=== PATIENT | female | born 1960 | race Caucasian/White ===

== ENCOUNTER 2018-12-05 09:00 | Day surgery (SDC) | payer BC, SELFPAY ==
--- NOTE | 2018-12-05 09:12 | EKG12_ITS ---
Test Reason : PREOP Blood Pressure : / mmHG Vent. Rate : 052 BPM Atrial Rate : 052 BPM P-R Int : 160 ms QRS Dur : 098 ms QT Int : 432 ms P-R-T Axes : 075 035 053 degrees QTc Int : 401 ms Sinus bradycardia Otherwise normal ECG No previous ECGs available Confirmed by TONG GALVEZ, DON ([id number]), editorial intern GAY KERN ([id number]) on 12/09/2018 11:31:00 AM Referred By: Cyril Galindo Confirmed By:DON FORTUNE MD
[2018-12-05 09:40] LABS: Anion Gap 7 (5-15); BUN 10 mg/dL (7-18); BUN/Creat Ratio 12.1 RATIO (10-20); Calcium,Total 9.1 mg/dL (8.5-10.1); Chloride 106 mmol/L (98-107); Creatinine, Serum 0.82 mg/dL (0.55-1.02); EST Glomerular Filtration Rate 75 mL/min (>60); Est Glom Filt Rate - Afr Amer 91 mL/min (>60); Glucose 87 mg/dL (74-106); Sodium Level 141 mmol/L (136-145)
[2018-12-05 09:42] VITALS: BP 128/84; PULSE 56; RESP 16; TEMP 37.1; O2SAT 98; BMI 23.1
--- NOTE | 2018-12-05 11:19 | PCM.OPRPT ---
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 Attempts at using a hearing aid in the right ear complicated by her previous mastoid surgery and tendency for drainage on that side. The placement of a bone anchored hearing device was offered as a rehabilitation option in the setting and after demonstration with a bone oscillator she was eager to proceed. The risks, alternatives, potential complications, and benefits were discussed at length and any questions answered to the patient and/or caregiver's satisfaction. Witnessed informed consent was obtained in the office, and the patient and/or caregiver was agreeable to proceed. Procedure went as follows: The patient was identified in the preoperative holding after site marking the appropriate ear in accordance with the patient's history, office chart, and physical exam. The patient was then brought to the operating room and placed under general anesthesia and intubated. When appropriate anesthesia was obtained, the scalp was prepped and draped in usual sterile fashion. The abutment site was then marked 5 cm posterior to the external auditory meatus and injected with 1 mL of 1% lidocaine with 100,000 epinephrine. Using a 5 mm punch, the skin and subcutaneous tissues were incised and resected. The periosteum overlying the operative site was then removed sharply with an iris scissor. The pilot supervisor drill hole was then created and palpated to ensure bone at the bottom depth of the hole and then finalized to 4 mm in size to allow for placement of the titanium abutment. The bony fragments were then suctioned and irrigated clear and the 4 x 9 mm abutment was then placed in accordance with the manufacture's directions. Xeroform gauze was then placed at the skin edge followed by the healing cap. The patient was then to returned to anesthesia, was revived and extubated without complication having tolerated the procedure well. Type of Anesthesia:: General Anesthesiologist: Quintin Monk Special Medications: none Specimen's removed: none Drains: none Estimated Blood Loss (mL): 0 mL Fluids Replaced: 100 mL Grafts/Implants Used: 9 mm titanium PONTO abutment - Complications none - Admit VTE Documentation VTE Present on Admission: No VTE Mechan Device Prophylaxis: SCD's VTE Pharm Prophylaxis ordered?: No
--- NOTE | 2018-12-05 11:23 | OP.PCM_ITS ---
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 Attempts at using a hearing aid in the right ear complicated by her previous mastoid surgery and tendency for drainage on that side. The placement of a bone anchored hearing device was offered as a rehabilitation option in the setting a nd after demonstration with a bone oscillator she was eager to proceed. The risks, alternatives, potential complications, and benefits were discussed at length and any questions answered to the patient and/or caregiver's satisfaction. Witnessed informed consent was obtained in the office, and the patient and/or caregiver was agreeable to proceed. Procedure went as follows: The patient was identified in the preoperative holding after site marking the appropriate ear in accordance with the patient's history, office chart, and physical exam. The patient was then brought to the operating room and placed under general anesthesia and intubated. When appropriate anesthesia was obtained, the scalp was prepped and draped in usual sterile fashion. The abutment site was then marked 5 cm posterior to the external auditory meatus and injected with 1 mL of 1% lidocaine with 100,000 epinephrine. Using a 5 mm punch, the skin and subcutaneous tissues were incised and resected. The periosteum overlying the operative site was then removed sharply with an iris scissor. The leather coverer drill hole was then created and palpated to ensure bone at the bottom depth of the hole and then finalized to 4 mm in size to allow for placement of the titanium abutment. The bony fragments were then suctioned and irrigated clear and the 4 x 9 mm abutment was then placed in accordance with the manufacture's directions. Xeroform gauze was then placed at the skin edge followed by the healing cap. The patient was then to returned to anesthesia, was revived and extubated without complication having tolerated the procedure well. Type of Anesthesia:: General Anesthesiologist: Quintin Monk Special Medications: none Specimen's removed: none Drains: none Estimated Blood Loss (mL): 0 mL Fluids Replaced: 100 mL Grafts/Implants Used: 9 mm titanium PONTO abutment - Complications none - Admit VTE Documentation VTE Present on Admission: No VTE Mechan Device Prophylaxis: SCD's VTE Pharm Prophylaxis ordered?: No
--- NOTE | 2018-12-05 11:30 | DCINST_ITS ---
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 (Acute) Other abnormal auditory perceptions, unspecified ear (Acute) You will use the following diet at home:: No restrictions Discharge Activity: Return to Normal Activity Call your doctor if your incision/area has: Continuous Slow Oozing, Increased Pain/ Swelling, Foul Smelling Discharge Call your doctor if you observe: Fever of 101 or Higher, Uncontrolled pain Allergies/Adverse Reactions: Allergies No Known Allergies Allergy (Verified 12/03/18 14:38) Medications to take at Discharge Alendronate Sodium [Fosamax] 70 mg PO QWEEK 12/03/18 Cholecalciferol (Vitamin D3) [Vitamin D3] 5,000 unit PO DAILY 12/03/18 Fluoxetine [Prozac] 20 mg PO DAILY 12/03/18 Metoprolol Succinate 50 mg PO DAILY 12/03/18 Valsartan [Diovan] 80 mg PO DAILY 12/03/18 Primary Care Physician: Alejandra Godwin PA-C [Primary Care Provider] - Test Results: Test results from this visit will be discussed in further detail at your follow- up appointment, if applicable. Please Follow Up With: Cyril Galindo MD When: 1 week
[2018-12-05 11:32] VITALS: BP 128/84; BP 140/74; PULSE 76; RESP 16; TEMP 36.3; O2SAT 98
[2018-12-05 11:38] VITALS: BP 124/71; BP 128/84; PULSE 70; RESP 16; TEMP 36.6; O2SAT 96
[2018-12-05 12:26] VITALS: BP 128/84
== END 2018-12-05 12:26 | disposition home or self-care (01) ==
LOC: SDC 09:03 → AC 09:04
PROVIDERS: Family Provider Family Medicine; PCP Family Medicine; Referring Provider Otolaryngology; Visit Provider Otolaryngology
PROC: (CPT 69710; principal; 2018-12-05 10:15)
DX: H90.71 Mixed conductive and sensorineural hearing loss, unilateral, right ear, with unrestricted hearing on the contralateral side (principal); H74.8X1 Other specified disorders of right middle ear and mastoid; H93.299 Other abnormal auditory perceptions, unspecified ear; I10 Essential (primary) hypertension; K21.9 Gastro-esophageal reflux disease without esophagitis; F32.9 Major depressive disorder, single episode, unspecified; F41.9 Anxiety disorder, unspecified; Z79.899 Other long term (current) drug therapy; Z78.0 Asymptomatic menopausal state; Z87.891 Personal history of nicotine dependence
CPT/HCPCS: 69714; 80048; 93005; J7120; J2405

== ENCOUNTER → 2020-02-03 | Outpatient (CLI) | payer BC, SELFPAY ==
--- NOTE | 2020-02-03 | IMM_PTH ---
PATIENT: DAV TOWNSEND LOC: [facility] U#:[id number] AGE/SX: 59/F ROOM: RE02/03/[address]: Dr. Gabriel Jansen MD : 1960 BED: DIS: 02/03/2020 SPEC #: [id number] RECD: 02/04/20 13:29 STATUS: ARSH REQ #: [id number] MELANY: 02/03/20 00:[address]: Gabriel Jansen DEPT: IMMUNOHISTOCHEMISTRY RECD BY: Laura Dumont ENTERED: 02/04/20 13:31 SP TYPE: IMMUNO OTHR DR: Alejandra Godwin PA-C Tissues: Right breast, NOS Procedures: CALPONIN-1 (add) CK5-6 (add) CK8 (add) E-CAD (add) HER2 NAUN (add) KI-67 (add) P53 (add) MT (add) IN SITU HYBRIDIZATION P40 (add) ER (initial) PHYSICIAN & [address] [address] SPECIMEN INFORMATION: Tissue Source: Right breast tissue Clinical Info: Abnormal right breast ultrasound Specimen Number: [id number] CPT code: 69864, 51626 x6, 71492 x3 METHODOLOGY: Deparaffinized sections of prefer/formalin-fixed tissue or PAP/DQ stained slides are incubated with monoclonal/polyclonal antibodies/oligonucleotide probes. Localization is made via biotin free immunoperoxidase method. Appropriate controls are performed and reacted as expected. Results on target cell population are indicated in the following table: RESULTS: ANTIBODY / CLONE RESULT E-Cad (ECH-6) positive CK8 (42mtxbN40) positive Calponin-1 (MO353W) negative CK5-6 (D5 & 1684) positive P40 (BC28) negative P53 (DO-7) positive, <10% Ki-67 (30-9) positive, low MORPHOMETRIC ANALYSIS ER (clone 6F11) >95%, strong intensity MT (clone 16/1E2) 75%, moderate intensity Her-2Neu (clone CB11) 2+ The prognostic test for HER2 is performed on formalin-fixed paraffin embedded tissue. A 3+ (positive) staining pattern is defined as intense, homogeneous, complete, circumferential membranous staining in >10% of contiguous tumor cells. A similar weak (2+) staining pattern is interpreted as equivocal. ERIN follow-up testing is recommended for all equivocal cases. Positivity/negativity for ER/MT is reported if > or < 1% of the tumor cells are immuno- reactive, respectively. The ASCO/CAP criteria is used for scoring. Reference: Journal of Clinical Oncology, 2013; 31:9483-4779 & 2010; 16:6170-0751. Duration of fixation: 10.5 Hrs; Sample Adequate: Yes. These assays have not been validated on decalcified tissues. Results should be interpreted with caution given the likelihood of false negativity on decalcified specimens. These tests were developed and their performance characteristics determined by [facility]. They may not have been cleared or approved by the U.S. Food and Drug Administration. The FDA has determined that such clearance or approval is not necessary. The above immunohistochemical/dualISH markers are ordered and reviewed by the Pathologist. INTERPRETATION: Right breast tissue, ultrasound-guided needle core biopsy: Invasive ductal carcinoma, nuclear grade 1-2. Positive for estrogen receptors (favorable prognostic indicator). Positive for progesterone receptors (favorable prognostic indicator). Equivocal for overexpression of [id number]. SJ:dez 02/05/20 Case has been reviewed in consultation with Dr. Jorgensen who concurs with the above diagnosis. IDC:AM ADDENDUM ADDENDUM ADDENDUM ADDENDUM ADDENDUM ADDENDUM ADDENDUM ADDENDUM ADDENDUM ADDENDUM ADDENDUM ADDENDUM ADDENDUM ADDENDUM ADDENDUM ADDENDUM ADDENDUM ADDENDUM ADDENDUM ADDENDUM ADDENDUM ADDENDUM 02/08/2020 12:00 ADDENDUM 02/08/2020 12:00 ADDENDUM 02/08/2020 12:00 ADDENDUM 02/08/2020 12:00 ADDENDUM 02/08/2020 12:00 IN SITU HYBRIDIZATION (ERIN) FOR HER2 Interpretation: Not Amplified / Negative HER2 : CEP-17 Ratio: 0.9 Average HER2 Signal: 2.1 Average CEP-17 Signal: 2.35 Number of Tumor Cells Scanned: 50 Interpretative Information: The INFORM HER2 Dual ERIN DNA Probe Cocktail assay is performed on formalin-fixed paraffin embedded tissue and determines HER2 gene status by detecting HER2 copies via silver in situ hybridization (SISH) and Chromosome 17 copies via chromogenic red in situ hybridization on tumor cells. A minimum of 20 cells representing > 10% of contiguous and homogeneous invasive tumor cells were analyzed. HER2 gene status is classified as Non-amplified (HER2/Chr17 ratio < 2.0) or Amplified (HER2/Chr17 ratio greater than or equal to 2.0). If the resulting HER2/Chr17 ratio falls within 1.8 - 2.2 (Borderline), retesting by FISH is recommended. Reference: Chris AC, Ranjeet GARCIAH, [place] DG, et al: Recommendations for Human Epidermal Growth Factor Receptor 2 Testing in Breast Cancer: [place] Society of Clinical Oncology / [employer] [place] [employer] Clinical Practice Guideline Update. J Clin Oncol 31:8572-3496, 2013. SJ:dez 02/08/20
--- NOTE | 2020-02-03 09:00 | BRBX_PTH ---
PATIENT: DAV TOWNSEND LOC: [facility] U#:[id number] AGE/SX: 59/F ROOM: RE02/03/[address]: Dr. Gabriel Jansen MD : 1960 BED: DIS: 02/03/2020 SPEC #: [id number] RECD: 02/03/20 10:49 STATUS: ARSH REAna #: [id number] MELANY: 02/03/20 09:[address]: Gabriel Jansen DEPT: SURGICAL PATHOLOGY RECD BY: Mikki Ruelas ENTERED: 02/03/20 11:48 SP TYPE: BREAST BX OTHR DR: Alejandra Godwin PA-C Tissues: Right breast, NOS Procedures: Surgery Specimen Level IV HEADER OPERATION: Ultrasound-guided needle core biopsy, right breast PRE-OP DIAGNOSIS: Abnormal ultrasound of right breast TISSUE SUBMITTED: Right breast tissue ISCHEMIC TIME: <1 minute FIXATION TIME: 10.5 hours MICROSCOPIC DIAGNOSIS Right breast, ultrasound-guided needle core biopsy: Invasive ductal carcinoma, nuclear grade 1-2 (0.9 cm in greatest length). See comment. HOSEA:dez 02/04/20 COMMENT Immunohistochemistry ([id number]) supports the above diagnosis. ER/IN/Jbr2nxq studies are being performed on sections of tumor and the results from this study will be reported separately ([id number]). Case has been reviewed in consultation with Dr. Jorgensen who concurs with the above diagnosis. IDC:AM MICROSCOPIC DESCRIPTION Slides are reviewed. GROSS DESCRIPTION Received in fixative is one container labeled with the patient's name and designated right breast biopsy. The specimen consists of multiple elongated fragments of nash-yellow fibroadipose tissue that in aggregate measure 2 x 0.5 x 0.1 cm. The entire specimen is submitted in one cassette. / HOSEA:dez 02/03/20 TC:0 CPT: 65399
[2020-02-03 09:48] VITALS: BMI 23.1
== END | disposition home or self-care (01) ==
LOC: LABSPEC 10:57
PROVIDERS: PCP Family Medicine; Referring Provider Surgery; Visit Provider Surgery
DX: R92.8 Other abnormal and inconclusive findings on diagnostic imaging of breast (principal); C50.911 Malignant neoplasm of unspecified site of right female breast
CPT/HCPCS: 88305; 88341; 88342; 88368

== ENCOUNTER 2020-02-18 08:36 | Day surgery (SDC) | payer BC, SELFPAY ==
[2020-02-03 09:48] VITALS: BMI 23.1
[2020-02-15 09:00] VITALS: BMI 23.1
--- NOTE | 2020-02-15 10:39 | HP_ITS ---
Intake Vital Signs 02/15/20 Height 5 ft 4 in 02/15/20 Weight: 145 lb 02/15/20 BMI 24.9 02/15/20 BP 129/77 H 02/15/20 Blood Pressure Location Rt brachial 02/15/20 Position Sitting 02/15/20 Respiration 18 02/15/20 Pulse 54 L 02/15/20 Pulse Source Monitor 02/15/20 Temp 98.1 F 02/15/20 Temp Source Temporal 02/15/20 Pulse Oximetry (%) 98 02/15/20 Oxygen Delivery Method room air Intake Visit Reasons: Discuss Breast Sx Form Maker Plaster Required: No Accompanied by: Daughter Is patient in pain?: No Allergies No Known Allergies Allergy (Verified 02/15/20 09:00) Medications Alendronate Sodium [Fosamax] 70 mg PO QWEEK 12/03/18 [History Confirmed 02/15/20] Cholecalciferol (Vitamin D3) [Vitamin D3] 5,000 unit PO DAILY 12/03/18 [History Confirmed 02/15/20] Fluoxetine [Prozac] 20 mg PO DAILY 12/03/18 [History Confirmed 02/15/20] Metoprolol Succinate 50 mg PO DAILY 12/03/18 [History Confirmed 02/15/20] Valsartan [Diovan] 80 mg PO DAILY 12/03/18 [History Confirmed 02/15/20] Acetaminophen [Tylenol Tablet] 650 mg PO Q4H PRN PRN tab 12/05/18 [Rx Confirmed 02/15/20] Ibuprofen [Motrin] 200 mg PO Q6H PRN PRN tab 12/05/18 [Rx Confirmed 02/15/20] ascorbic acid (vitamin C) 1,500 mg tablet,extended release 1,200 mg PO DAILY tab 02/03/20 [History Confirmed 02/15/20] omeprazole 20 mg capsule,delayed release 20 mg PO DAILY 02/03/20 [History Confirmed 02/15/20] [facility] Medical History Acid reflux (Acute) Anxiety (Acute) Hypertension (Chronic) Abnormal ultrasound of breast (Acute) Abnormal mammogram of right breast (Acute) 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 Gabriel Jansen MD) Smoking Status: Former smoker second hand exposure: No alcohol intake: never substance use type: does not use caffeine: Yes Type: coffee what type of physical activity do you participate in: walking frequency: daily HPI HPI HPI: DAV TOWNSEND is a 59 F who presents to the office today for HPI HPI Surgical H&P: Yes HPI: DAV TOWNSEND is a 59 F who presents to the office today for preoperative visit for breast cancer. The patient had a biopsy of a right breast mass which came back as invasive ductal carcinoma. ROS General General: No weight change, appetite, fatigue, colon cancer, breast cancer or weakness HEENT HEENT: No difficulty swallowing, eye injury, eye surgery, swollen glands or hoarseness Endo Endocrine: No thyroid disease, diabetes mellitus, thyroid cancer, Hair loss, heat intolerance or cold intolerance Skin Skin: Yes changing moles; no rash Breast Breast: Yes abnormal mammogram and abnormal US; no left breast lump, right breast lump, nipple discharge, breast pain or breast enlargement Musc Musculoskeletal: No back problems, arthritis, rheumatoid arthritis, gout or joint pain Cardio Cardiovascular: Yes high blood pressure; no murmur, pacemaker, heart disease, atrial fibrillation, heart attack, heart stent, palpitations, shortness of breat with exertion or chest pain Psych Psychiatric: Yes anxiety; no depression or hearing voices Resp Respiratory: No shortness of breath, No sleep apnea, No cough, No COPD, No asthma, No emphysema, No wheezing Gastro Gastrointestinal: No abdominal pain, No nausea or vomiting, No diarrhea, No constipation, No blood in stool, Yes acid reflux, No hemorrhoids, No ulcers, No gallbladder problem, No black,tarry stools Bob Hematologic: No blood thinners, No blood disorders, No bleeding, No anemia, No blood clots Neuro Neurologic: No weakness Exam Const General: cooperative Orientation: alert, oriented x3 Chest Breast Palpation: No nipple discharge Resp Effort & Inspection: normal respiratory effort Auscultation: clear to auscultation bilaterally Cardio Rate: regular rate Rhythm: regular rhythm Heart Sounds: no murmurs GI Inspection: non-distended Palpation: soft, nontender Assessment & Plan Problems 1. Malignant neoplasm of upper-outer quadrant of right breast in female, estrogen receptor positive C50.411; Z17.0 Plan The patient has a small breast cancer in the right breast in the lateral aspect. The biopsy came back as invasive ductal carcinoma. I discussed this with the patient in detail. I discussed partial mastectomy with sentinel lymph node biopsy with her. I also discussed wire localization as well as radiotracer dye and blue dye injection. I discussed the partial mastectomy in great detail with her and all questions were answered. I discussed the risks including but not limited to bleeding, infection, positive margins, positive lymph nodes, nerve injury, lymphedema. The patient understands all the risks and is she is willing to proceed. Patient had her COVID testing and she is scheduled for surgery . We discussed the current risks associated with COVID-19. While it is understood that there is a community spread of COVID-19, the risk of alan COVID-19 while at [facility] ([facility]) is very low; however, the risk cannot be completely mitigated because of the community spread of the disease. We discussed in detail the risk of exposure to and/or potential harm posed by the COVID-19 virus with having a surgery/procedure at this time versus the risk of delaying the surgery/procedure. It is not possible to know either the risk of delaying the surgery or procedure or chance of getting an infection with perfect accuracy, but a joint decision was made to proceed at this time with the scheduled surgery/procedure as indicated on the consent form. Patient was notified that we will need to comply with any screening or testing [facility] wishes to perform or that surgery may be delayed for any positive results. Gabriel Jansen MD Pager: [facility] [address] [place] [address], [address] [place] [address] Office: Coding Level of Care Code Off vis,est,level 3 Diagnoses Malignant neoplasm of upper-outer quadrant of right breast in female, estrogen receptor positive C50.411; Z17.0 ??Breast location: upper outer quadrant of breast ??Estrogen receptor status: positive ??Patient sex: female 02/15/20 1043 <Electronically signed by Gabriel hamm MD> Date _ Gabriel Jansen MD I have re-examined the patient. There are no clinical changes since date of exam.
--- NOTE | 2020-02-15 10:39 | HP_ITS ---
Intake Vital Signs 02/15/20 Height 5 ft 4 in 02/15/20 Weight: 145 lb 02/15/20 BMI 24.9 02/15/20 BP 129/77 H 02/15/20 Blood Pressure Location Rt brachial 02/15/20 Position Sitting 02/15/20 Respiration 18 02/15/20 Pulse 54 L 02/15/20 Pulse Source Monitor 02/15/20 Temp 98.1 F 02/15/20 Temp Source Temporal 02/15/20 Pulse Oximetry (%) 98 02/15/20 Oxygen Delivery Method room air Intake Visit Reasons: Discuss Breast Sx Traffic Manager Required: No Accompanied by: Daughter Is patient in pain?: No Allergies No Known Allergies Allergy (Verified 02/15/20 09:00) Medications Alendronate Sodium [Fosamax] 70 mg PO QWEEK 12/03/18 [History Confirmed 02/15/20] Cholecalciferol (Vitamin D3) [Vitamin D3] 5,000 unit PO DAILY 12/03/18 [History Confirmed 02/15/20] Fluoxetine [Prozac] 20 mg PO DAILY 12/03/18 [History Confirmed 02/15/20] Metoprolol Succinate 50 mg PO DAILY 12/03/18 [History Confirmed 02/15/20] Valsartan [Diovan] 80 mg PO DAILY 12/03/18 [History Confirmed 02/15/20] Acetaminophen [Tylenol Tablet] 650 mg PO Q4H PRN PRN tab 12/05/18 [Rx Confirmed 02/15/20] Ibuprofen [Motrin] 200 mg PO Q6H PRN PRN tab 12/05/18 [Rx Confirmed 02/15/20] ascorbic acid (vitamin C) 1,500 mg tablet,extended release 1,200 mg PO DAILY tab 02/03/20 [History Confirmed 02/15/20] omeprazole 20 mg capsule,delayed release 20 mg PO DAILY 02/03/20 [History Confirmed 02/15/20] FOR[facility]LY [facility] Medical History Acid reflux (Acute) Anxiety (Acute) Hypertension (Chronic) Abnormal ultrasound of breast (Acute) Abnormal mammogram of right breast (Acute) 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 Gabriel Jansen MD) Smoking Status: Former smoker second hand exposure: No alcohol intake: never substance use type: does not use caffeine: Yes Type: coffee what type of physical activity do you participate in: walking frequency: daily HPI HPI HPI: DAV TOWNSEND is a 59 F who presents to the office today for HPI HPI Surgical H&P: Yes HPI: DAV TOWNSEND is a 59 F who presents to the office today for preoperative visit for breast cancer. The patient had a biopsy of a right breast mass which came back as invasive ductal carcinoma. ROS General General: No weight change, appetite, fatigue, colon cancer, breast cancer or weakness HEENT HEENT: No difficulty swallowing, eye injury, eye surgery, swollen glands or hoarseness Endo Endocrine: No thyroid disease, diabetes mellitus, thyroid cancer, Hair loss, heat intolerance or cold intolerance Skin Skin: Yes changing moles; no rash Breast Breast: Yes abnormal mammogram and abnormal US; no left breast lump, right breast lump, nipple discharge, breast pain or breast enlargement Musc Musculoskeletal: No back problems, arthritis, rheumatoid arthritis, gout or joint pain Cardio Cardiovascular: Yes high blood pressure; no murmur, pacemaker, heart disease, atrial fibrillation, heart attack, heart stent, palpitations, shortness of breat with exertion or chest pain Psych Psychiatric: Yes anxiety; no depression or hearing voices Resp Respiratory: No shortness of breath, No sleep apnea, No cough, No COPD, No asthma, No emphysema, No wheezing Gastro Gastrointestinal: No abdominal pain, No nausea or vomiting, No diarrhea, No constipation, No blood in stool, Yes acid reflux, No hemorrhoids, No ulcers, No gallbladder problem, No black,tarry stools Bob Hematologic: No blood thinners, No blood disorders, No bleeding, No anemia, No blood clots Neuro Neurologic: No weakness Exam Const General: cooperative Orientation: alert, oriented x3 Chest Breast Palpation: No nipple discharge Resp Effort & Inspection: normal respiratory effort Auscultation: clear to auscultation bilaterally Cardio Rate: regular rate Rhythm: regular rhythm Heart Sounds: no murmurs GI Inspection: non-distended Palpation: soft, nontender Assessment & Plan Problems 1. Malignant neoplasm of upper-outer quadrant of right breast in female, estrogen receptor positive C50.411; Z17.0 Plan The patient has a small breast cancer in the right breast in the lateral aspect. The biopsy came back as invasive ductal carcinoma. I discussed this with the patient in detail. I discussed partial mastectomy with sentinel lymph node biopsy with her. I also discussed wire localization as well as radiotracer dye and blue dye injection. I discussed the partial mastectomy in great detail with her and all questions were answered. I discussed the risks including but not limited to bleeding, infection, positive margins, positive lymph nodes, nerve injury, lymphedema. The patient understands all the risks and is she is willing to proceed. Patient had her COVID testing and she is scheduled for surgery . We discussed the current risks associated with COVID-19. While it is understood that there is a community spread of COVID-19, the risk of alan COVID-19 while at [facility] ([facility]) is very low; however, the risk cannot be completely mitigated because of the community spread of the disease. We discussed in detail the risk of exposure to and/or potential harm posed by the COVID-19 virus with having a surgery/procedure at this time versus the risk of delaying the surgery/procedure. It is not possible to know either the risk of delaying the surgery or procedure or chance of getting an infection with perfect accuracy, but a joint decision was made to proceed at this time with the scheduled surgery/procedure as indicated on the consent form. Patient was notified that we will need to comply with any screening or testing [facility] wishes to perform or that surgery may be delayed for any positive results. Gabriel Jansen MD Pager: [facility] [address] [place] [address], [address] [place] [address] Office: Coding Level of Care Code Off vis,est,level 3 Diagnoses Malignant neoplasm of upper-outer quadrant of right breast in female, estrogen receptor positive C50.411; Z17.0 ??Breast location: upper outer quadrant of breast ??Estrogen receptor status: positive ??Patient sex: female 02/15/20 1043 <Electronically signed by Gabriel hamm MD> Date _ Gabriel Jansen MD
[2020-02-18] VITALS (7 sets, daily range): BP systolic 131–147; BP diastolic 66–90; PULSE 56–76; RESP 16–18; TEMP 36.2–37; O2SAT 94–100; BMI 24.3
--- NOTE | 2020-02-18 | AXNB_PTH ---
PATIENT: DAV TOWNSEND LOC: [facility] [place] U#:[id number] AGE/SX: 59/F ROOM: RE02/18/[address]: Dr. Gabreil Jansen MD : 1960 BED: DIS: 02/18/2020 SPEC #: [id number] RECD: 02/18/20 12:45 STATUS: ARSH REAna #: [id number] MELANY: 02/18/20 00:[address]: Gabriel Jansen DEPT: SURGICAL PATHOLOGY RECD BY: Laura Dumont ENTERED: 02/18/20 13:49 SP TYPE: AX NODE BX OTHR DR: Alejandra Godwin PA-C Tissues: A - Axillary lymph node, NOS B - Right breast, NOS Procedures: Frozen Section (charge) Frozen Section Add'l ([facility]) Surgery Specimen Level V HEADER OPERATION: Right breast stereotactic wire localization lumpectomy with sentinel node biopsy PRE-OP DIAGNOSIS: Malignant neoplasm of upper outer quadrant of right breast, ER positive TISSUE SUBMITTED: A - Right sentinel lymph nodes sent for FS at 1242, B - Right breast lumpectomy tissue, short suture - superior, long suture - lateral FROZEN SECTION DIAGNOSIS A. Right axillary sentinel lymph nodes, biopsy: Two out of two lymph nodes negative for carcinoma. AM:dez 02/18/20 MICROSCOPIC DIAGNOSIS A. Right axillary sentinel lymph nodes, biopsy: One out of two lymph nodes positive for metastatic isolated tumor cells (0.11mm in greatest dimension). See comment. B. Right breast, lumpectomy with needle localization: Invasive ductal carcinoma, two foci. See cancer summary in the comment section. SJ:dez 02/23/20 COMMENT A. Immunohistochemistry ([id number]) supports the diagnosis of metastatic isolated tumor cells in one out two lymph nodes.. BREAST CANCER SUMMARY Procedure - excision with wire-guided localization Specimen laterality - right Invasive tumor: Tumor site - upper outer quadrant Tumor size - greatest dimension large invasive focus 1.1 cm, additional dimension 1 x 0.6 cm Histologic type - invasive ductal carcinoma, no special type Histologic grade ([place] grade): Glandular/tubular differentiation score - 3 Nuclear pleomorphism score - 2 Mitotic count score - 2 Overall grade - grade 2 (score of 7) Tumor focality - multiple foci of invasive carcinoma Number of foci - 2 Size of individual foci - 1.1 x 1 x 0.6 cm and 0.2 x 0.2 cm (block B12) Ductal Carcinoma In Situ - not identified Tumor extension: Skin - skin is not present Nipple - not applicable Skeletal muscle - no skeletal muscle is present. Margins - invasive carcinoma 0.3 cm away from the closest inferior margin Regional Lymph Nodes: Total number of lymph nodes examined - 2 Number of sentinel lymph nodes examined - 2 Number of lymph nodes with isolated tumor cells - 1 Number of lymph nodes with macrometastases and micrometastases - 0 Treatment effect: No known presurgical therapy. Lymphvascular invasion - not identified Dermal lymphvascular invasion - not applicable Additional Pathologic Findings - fibrocystic changes and intraductal hyperplasia without atypia. Focal changes consistent with previous biopsy site. Ancillary Studies: Previously performed on same tumor ([id number] / [id number]) ER: positive (>95%, strong intensity) DE: positive (75%, moderate intensity) [id number]: equivocal (2+) Her2 by dualISH: HER2:CEP-17 ratio: 0.9 Average HER2 signal: 2.1 Average CEP-17 signal: 2.35 Clinical History - Please make reference to previous specimen ([id number]) right breast tissue, ultrasound-guided core biopsy with diagnosis of invasive ductal carcinoma. Pathologic Stage: pT1c pN0(i+) pMx The above summary is in compliance with [employer] [place] Pathology (CAP) Cancer Protocols Checklist and [place] Joint Committee on Cancer (AJCC), Staging Manual, 8th Ed. Case has been reviewed in consultation with Dr. Jorgensen who concurs with the above diagnosis. IDC:AM MICROSCOPIC DESCRIPTION Slides are reviewed. GROSS DESCRIPTION A - Received fresh for frozen section consultation labeled with the patient's name is a specimen designated right sentinel lymph node. The specimen consists of an irregular fragment of nash-yellow fatty tissue measuring 2 x 1.5 x 1 cm. Dissection reveals two blue nodules ranging in size from 1 to 1.2 cm. Both nodules are bisected and submitted in their entirety for frozen section consultation in two blocks. / AM:dez 02/18/20 B - Received fresh for intraoperative consultation labeled with the patient's name and designated right breast lumpectomy tissue. The specimen consists of a piece of fibroadipose tissue with needle localization measuring 5 x 4.5 x 2 cm. The specimen is oriented as follows: short suture - superior, long suture - lateral. The specimen is inked as follows: anterior - yellow, posterior - black, superior - blue, inferior - green, medial - red and lateral - orange. Serial sections reveal a nash, indurated tumor mass measuring 1 x 1 x 0.6 cm. This mass is 0.2 cm away from the closest inferior margin. Sections of the rest of the specimen reveal nash-yellow adipose cut surfaces mixed with nash-white fibrous area. Furniture Repair Technician sections are submitted in 12 cassettes as follows: 1 - perpendicular medial and lateral margin, 2 - perpendicular superior, inferior and posterior margins, 3 & 4 - entire tumor with closest inferior margin, 5 & 6 - sales account representative sections adjacent to the tumor, 7-12 - sales account representative sections away from the tumor. Sections are submitted after additional fixation. / SJ:dez 02/19/20 TC:0 CPT: 69532, 97805 x2, 69175, 60176 ADDENDUM ADDENDUM ADDENDUM ADDENDUM ADDENDUM ADDENDUM ADDENDUM ADDENDUM 03/21/2020 10:00 ADDENDUM 03/21/2020 10:00 ADDENDUM 03/21/2020 10:00 ADDENDUM 03/21/2020 10:00 ADDENDUM 03/21/2020 10:00 An order for Oncotype testing was received from Dr. Zhu. This necessitated case review, block and slide selection by pathologist at [facility]. Breast Cancer Recurrence Score = 14 Results of the complete Oncotype testing (Incoming Media report) are viewable in EMR under: Reports - Pathology - Lab Pathology Report, Scanned.
--- NOTE | 2020-02-18 | IMM_PTH ---
PATIENT: DAV TOWNSEND [place] [facility] [place][id number] AGE/SX: 59/F ROOM: RE02/18/[address]: Dr. Gabriel Jansen MD : 1960 BED: DIS: 02/18/2020 SPEC #: [id number] RECD: 02/23/20 12:47 STATUS: ARSH REQ #: [id number] MELANY: 02/18/20 00:[address]: Gabriel Jansen DEPT: IMMUNOHISTOCHEMISTRY RECD BY: Laura Dumont ENTERED: 02/23/20 12:51 SP TYPE: IMMUNO OTHR DR: Alejandra Godwin PA-C Tissues: A - Axillary lymph node, NOS B - Right breast, NOS Procedures: Calponin-1(initial) CK7 (add) CK8 (add) E-CAD (add) Pankeratin (initial) Pankeratin (add) P40 (add) PHYSICIAN & INSTITUTION [place] [address] SPECIMEN INFORMATION: Tissue Source: A - Right axillary sentinel lymph nodes, B - Right breast Clinical Info: Malignant neoplasm of upper outer quadrant right breast, ER positive Specimen Number: [id number] A1, A2 & B12 CPT code: 96174 x2, 25381 x6 METHODOLOGY: Deparaffinized sections of prefer/formalin-fixed tissue or PAP/DQ stained slides are incubated with monoclonal/polyclonal antibodies/oligonucleotide probes. Localization is made via biotin free immunoperoxidase method. Appropriate controls are performed and reacted as expected. Results on target cell population are indicated in the following table: RESULTS: ANTIBODY / CLONE RESULT Block A1 AE1-3 (AE1/AE3/PCK26) negative CK7 (OV-TL12/30) negative Block A2 AE1-3 (AE1/AE3/PCK26) positive (isolated tumor cells) CK7 (OV-TL12/30) positive (isolated tumor cells) Block B12 P40 (BC28) negative Calponin-1 (TT272P) negative CK8 (73ivrqZ43) positive E-Cad (ECH-6) positive These tests were developed and their performance characteristics determined by [facility]. They may not have been cleared or approved by the U.S. Food and Drug Administration. The FDA has determined that such clearance or approval is not necessary. The above immunohistochemical/dualISH markers are ordered and reviewed by the Pathologist. INTERPRETATION: A. Right axillary sentinel lymph nodes, biopsy: One out of two lymph nodes, positive for one focus of isolated tumor cells (0.11 mm in greatest dimension) B. Right breast lumpectomy with needle localization: Invasive ductal carcinoma (block B12). SJ:dez 02/24/20 Case has been reviewed in consultation with Dr. Jorgensen who concurs with the above diagnosis. IDC:AM
--- NOTE | 2020-02-18 08:14 | NM_ITS ---
PROCEDURE: NUCLEAR MEDICINE Injection [place] Node - RIGHT breast(s). REASON FOR EXAM: Female, 59 years old. Right breast cancer. TECHNIQUE: [place] node localization using radionuclide methods of the RIGHT breast(s) was performed following subcutaneous administration of 1.2 mCi of of sulfur colloid Tc-99m. NM/Lymph Node Injection Only IMPRESSION: 1.2 mCi of technetium labeled sulfur colloid was injected subcutaneously in the right periareolar region. Electronically Signed: Rex Glez, at 10:01 EDT , Service support ,
--- NOTE | 2020-02-18 10:15 | BI_ITS ---
SURGICAL BREAST SPECIMEN RADIOGRAPH CLINICAL: Document presence of tissue clip marker in biopsy specimen. FINDINGS: Specimen shows presence of tissue clip marker. Electronically Signed: Rex Glez, at 13:16 EDT , Service support , BI/Breast Biopsy Specimen
[2020-02-18] MEDS: 0.9% Normal Saline (Pres. free 10 ML Vial (12:15)
[2020-02-18] MEDS: Isosulfan Blue 1% 5 ML Vial (12:15)
[2020-02-18] MEDS: Bupiv/Epi 0.25% 30 ML Vial (13:01)
[2020-02-18] MEDS: Lactated Ringers 1,000 ML 100 ML IV ×2 (14:01)
--- NOTE | 2020-02-18 14:03 | DCINST_ITS ---
Discharge Diet: No Restrictions Discharge Activity: May Not Drive - for 2-3 days or while taking narcotic pain meds. May shower in (days): 1 Lifting Restrictions: 10 pounds for 1 week. Call your doctor if your incision/area has: Continuous Slow Oozing, Sudden In creased Bleeding, Increased Pain/ Swelling, Increased Redness, Foul Smelling Discharge, Swelling at the incision site Call your doctor if you observe: Fever of 101 or Higher Suture Line Care: Avoid Pulling/Pushing, Avoid Pinching/Bending Remove Dressing in (days):: 1 - Remove bulky dressing tomorrow. May leave any opsite dressing for 3-4 days. Keep dressing in place until your follow-up appointment. Additional Dressing/Incision Instructions:: Remove bulky dressing tomorrow. May leave any opsite dressing for 3-4 days. Keep dressing in place until your follow-up appointment. Allergies/Adverse Reactions: Allergies No Known Allergies Allergy (Verified 02/18/20 08:56) Medications to take at Discharge Alendronate Sodium [Fosamax] 70 mg PO QWEEK 12/03/18 Cholecalciferol (Vitamin D3) [Vitamin D3] 5,000 unit PO DAILY 12/03/18 Fluoxetine [Prozac] 20 mg PO DAILY 12/03/18 Metoprolol Succinate 50 mg PO DAILY 12/03/18 Valsartan [Diovan] 80 mg PO DAILY 12/03/18 Acetaminophen [Tylenol Tablet] 650 mg PO Q4H PRN PRN tab 12/05/18 Ibuprofen [Motrin] 200 mg PO Q6H PRN PRN tab 12/05/18 omeprazole 20 mg capsule,delayed release 20 mg PO DAILY 02/03/20 calcium carbonate 500 mg calcium (1,250 mg) tablet 1,250 mg PO DAILY tab 02/17/20 traMADol [Ultram (G)] 50 - 100 mg PO Q4H PRN PRN 5 Days #30 tablet 02/18/20 The following prescriptions were given: traMADol [Ultram (G)] 50 - 100 mg PO Q4H PRN PRN 5 Days #30 tablet PRN Reason: Pain Score 4-5/10 Transmission Status: Sent to [facility] Please Follow Up With: Gabriel Jansen MD When: Call tomorrow to make 2 week follow up appt [phone]
[2020-02-18] MEDS: traMADol 50 MG Tablet 100 MG PO (14:33)
--- NOTE | 2020-02-18 14:39 | PCM.OPRPT ---
Problem List (1) Breast cancer, right Status: Acute Qualifiers: Breast location: lower outer quadrant of breast Estrogen receptor status: positive Patient sex: female Qualified Code(s): C50.511 - Malignant neoplasm of lower-outer quadrant of right female breast; Z17.0 - Estrogen receptor positive status [ER+] Report of Operation Date of Procedure: 02/18/20 Pre-Operative Diagnosis: Right breast cancer Post-Operative Diagnosis: Same Surgery/Procedure Performed:: 1. Stereotactic wire localization. 2. Right sentinel lymph node biopsy. 3. Right partial mastectomy Specimen's removed: 1. Right partial mastectomy. 2. Right sentinel lymph node Description of Procedure: The patient was brought to the stereotactic room and placed in the stereotactic table. Compression views were obtained and the clip was localized. Stereotactic views were obtained and the computer was used to localize the clip. Next the skin was prepped and injected with local anesthetic. The needle was placed into the breast and stereotactic views were then once again obtained and the needle appeared to be in good position. The wire was deployed and the needle was removed. Mammogram views were obtained and the patient was brought back to presurgery. Next the patient was brought back to the operating room and general anesthesia was induced. The right breast was prepped and injected with 5 cc of Lymphazurin as well as 5 cc of saline. Breast was massaged for 5 minutes. Next the breast and axilla were prepped in usual sterile fashion. The incision in the right axilla was created and deepened to the axillary fascia. The axillary fascia was incised and the lymph node was identified. It was clipped from its tributaries and removed. There were 2 small blue lymph nodes. These had a 10-second count of 1400 and the axilla was examined once more with the probe and there were no further radioactive nodes in the axilla. No further blue nodes were identified. There was good hemostasis. The axilla was packed with a wet gauze. Next an area of the lower outer quadrant of the breast was marked and injected with local anesthetic. A skin incision was made and the plasma blade was used to come down into the breast tissue and the wire was delivered into the incision. The mass was grasped with an Allis and plasma blade was used to dissect around this mass and deliver it. The mass was marked with marking sutures and sent for x-ray and pathology. The cavity was inspected and irrigated and hemostasis was obtained using plasma blade. Pathology came back negative on the lymph nodes and the clip was included in the specimen from the breast. At that time the subcutaneous tissue of both incisions was closed with interrupted 3-0 Vicryl sutures as well as running 4-0 Monocryl sutures and glue. Patient was then awoken and taken to PACU in stable condition. Patient tolerated procedure well. - Admit VTE Documentation VTE Mechan Device Prophylaxis: SCD's
== END 2020-02-18 15:37 | disposition home or self-care (01) ==
LOC: SDC 08:37 → AC 08:37
PROVIDERS: Anesthesiology; PCP Family Medicine; Referring Provider Surgery; Visit Provider Surgery
PROC: 0HBV0ZZ Excision of Bilateral Breast, Open Approach (ICD-10-PCS; CPT 19302; principal; 2020-02-18 11:15)
DX: C50.411 Malignant neoplasm of upper-outer quadrant of right female breast (principal); C50.511 Malignant neoplasm of lower-outer quadrant of right female breast; Z17.0 Estrogen receptor positive status [ER+]; Z11.59 Encounter for screening for other viral diseases; I10 Essential (primary) hypertension; H90.71 Mixed conductive and sensorineural hearing loss, unilateral, right ear, with unrestricted hearing on the contralateral side; K21.9 Gastro-esophageal reflux disease without esophagitis; F41.9 Anxiety disorder, unspecified; Z79.899 Other long term (current) drug therapy; Z78.0 Asymptomatic menopausal state; Z87.891 Personal history of nicotine dependence
CPT/HCPCS: 19301; 38525; 38900; 19281; 38792; 76098; 87635; 88305; 88307; 88331; 88332; 88341; 88342; A9541; G2023; J7120; J2405; J3490; Q9968; U0003

== ENCOUNTER 2020-06-28 07:01 | Day surgery (SDC) | payer BC, SELFPAY ==
[2020-03-22 11:24] VITALS: BMI 24.9
[2020-05-16 10:24] VITALS: BMI 25.4
[2020-06-28] VITALS (7 sets, daily range): BP systolic 116–138; BP diastolic 74–103; PULSE 58–69; RESP 16; TEMP 36.2–36.7; O2SAT 97–100; BMI 24.4
[2020-06-28] MEDS: Lactated Ringers 1,000 ML 100 ML IV (07:43)
--- NOTE | 2020-06-28 07:50 | HP.PCM_ITS ---
History of Present Illness Date of Admission: 06/28/20 The patient is a 60 year old F here for screening colonoscopy. The patient is never had a screening colonoscopy. The patient was recently diagnosed with breast cancer and had surgery. The patient has no abdominal pain or blood in her stool. Past Medical/Surgical History - Planned Operation Planned Operative Procedure/s: Colonoscopy Date of Operative Procedure: 06/28/20 Permit Signed: No S.O.S: No Is This Patient Having a Total Joint: No - Previous Hospitalizations/Surgeries HX Hospitalizations: Yes HX of Surgeries: lumpectomy 2019, hyeterectomy 2003, ear surgery Any Problems With Anesthesia: No You/Your Family Experience Fever (Hyperthermia) With Anes: No Cholinesterase deficiency: No - Cardiovascular Hx Chest Pain within Last 2 months: No Hx of Irregular Heartbeat and/or Afib: No Hx Heart Attack: No Hx Congestive Heart Failure: No Hx Rheumatic Fever: No Hx Hypertension: Yes - on meds Hx Internal Defibrillator: No Hx Pacemaker: No Hx Cardiac Catheterization: No Hx Cardiac Surgery/Stents/Etc.: No Hx Stress Test: Yes - at [facility] 2017 HX Edema: No Hx Pain in Legs when Walking/Leg Cramps: No - Respiratory Chronic Cough: No HX of Shortness of Breath: No Hoarseness: No Hx Chronic Obstructive Pulmonary Disease (COPD): No Hx Asthma: No Hx Emphysema: No Hx Sleep Apnea: No CPAP: No Hx Oxygen Use at Home: No Hx Respiratory Tract Infection/Cold (presently): Yes Do You Snore Loudly (louder than talking or can be heard): No Do You Often Feel Tired/ Fatigued/ Sleepy Dring Daytime?: No Has Anyone Observed You Stop Breathing During Sleep?: No Result (for STOP score): Negative Hx Smoking: Yes Smoking Status: Former smoker - Gastrointestinal Hx Gastroesophageal Reflux: Yes Controlled With Meds: Yes Hx Gastrointestinal Disorders: No Hx Gastrointestinal Bleed: No Hx Ulcer: No Hx Hiatal Hernia: No Difficulty Chewing/Swallowing: No Recent Onset of Swallowing Problems: No Special diet followed at home: No Hx Unplanned Weight Loss of 20#: No HX Unplanned Weight Gain of 20#: No - Neurological Hx Seizures: No HX Syncope/Blackout Spells/Unconsciousness: No Hx CVA/Stroke: No Hx Transient Ischemic Attacks (TIA): No Hx Multiple Sclerosis: No Hx Parkinson's Disease: No Hx Head/Neck Injury: No Hx Headaches: No Hx Back Injury/Pain: No Recent Onset of Speech Difficulty: No Restless Legs: No Does patient have nerve stimulator: No Patient instructed to have device shut off: No - Blood Disorder Hx Leukemia: No Bleeding Tendencies: No Hx Deep Vein Thrombosis: No Hx High Cholesterol: No Blood Transmitted Disease: No Hx Hepatitis: No Hx Cirrhosis: No Hx Anemia: No Hx Blood Disorders: No - Reproduction : No Is Patient Lactating: No Hx Hysterectomy: Yes Hx Tubal Ligation: No Are You Post Menopause: Yes - Genitourinary Hx Renal Disease: No - Musculoskeletal Hx Arthritis: No Hx Rheumatoid Arthritis: No Hx Gout: No Recent Onset of an Orthopedic Problem: No - Endocrine Hx Diabetes: No Thyroid Disease: No Hx Steroid Therapy: No - Psycho/Social Hx Substance Use: No Hx Alcohol Use: No Hx Anxiety: Yes - on meds Hx Depression: No Mental Illness: No Hx Dementia: No - Miscellaneous Hx Cancer: Yes - breast, skin Recent Exposure to Contagious Disease: No Active MRSA: No Hx of C-Diff: No Any Loose Teeth: Yes - upper dentures Allergies No Known Allergies Allergy (Verified 06/28/20 07:19) - Discharge Is Pt Admitted From a Shelter, or a Shelter: No After D/C, Where Do you Plan to Go: Return Home - From the PAT History Number of Risk Factors: 2 - Physical Exam Vitals/I&O's: Vital Signs Temp Pulse Resp BP Pulse Ox 98.1 F 69 16 130/74 H 97 06/28/20 07:36 06/28/20 07:36 06/28/20 07:36 06/28/20 07:36 06/28/20 07:36 Oxygen Delivery Method Room Air Weight: 142 lb 3.17 oz Body Mass Index (BMI) 24.4 General: Alert, Oriented x3 Lungs: Normal air movement Cardiovascular: Regular rate, Regular Rhythm Abdomen: Soft, Non Tender Current Medications Lactated Ringer's () 1,000 mls @ 100 mls/hr IV .Q10H TERRI Last Admin: 06/28/20 07:43 Dose: 100 mls/hr Documented by: Assessment/Plan All Active Problems (Last Reviewed 06/15/20 @ 12:57 by Carin Hennessy RN) Breast cancer, right (Acute) Encounter for education (Acute) Osteopenia (Acute) Acid reflux (Acute) Anxiety (Acute) Abnormal ultrasound of breast (Acute) Abnormal mammogram of right breast (Acute) Hx of breast biopsy (Acute) Hx of mastoidectomy (Acute) Hx of hysterectomy (Acute) 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 I explained the risks including but not limited to stroke or heart attack with anesthesia, perforation of the GI tract, bleeding, infection. I explained that any of these could necessitate further emergency surgery. The patient understands and all questions were answered sufficiently. The patient wishes to proceed with procedure. We discussed the current risks associated with COVID-19. While it is understood that there is a community spread of COVID-19, the risk of alan COVID-19 while at [facility] ([facility]) is very low; however, the risk cannot be completely mitigated because of the community spread of the disease. We discussed in detail the risk of exposure to and/or potential harm posed by the COVID-19 virus with having a surgery/procedure at this time versus the risk of delaying the surgery/procedure. It is not possible to know either the risk of delaying the surgery or procedure or chance of getting an infection with perfect accuracy, but a joint decision was made to proceed at this time with the scheduled surgery/procedure as indicated on the consent form. Laura espitia was notified that we will need to comply with any screening or testing [facility] wishes to perform or that surgery may be delayed for any positive results. Gabriel Jansen MD Pager: [facility] [address] [place] [address], [address] [place] [address] Office: Surgery Risks - Colonoscopy Risks Include but are not Limited To: Risks include but are not limited to: Bleeding, perforation requiring further surgery, inability to complete colonoscopy requiring barium enema.
--- NOTE | 2020-06-28 08:00 | COLBX_PTH ---
PATIENT: DAV TOWNSEND LOC: EN U#:[id number] AGE/SX: 60/F ROOM: RE06/28/[address]: Dr. Gabriel Jansen MD : 1960 BED: DIS: 06/28/2020 SPEC #: [id number] RECD: 06/28/20 11:23 STATUS: ARSH BRANDY #: [id number] MELANY: 06/28/20 08:[address]: Gabriel Jansen DEPT: SURGICAL PATHOLOGY RECD BY: Astrid Damico ENTERED: 06/28/20 12:52 SP TYPE: COLON BX OTHR DR: Alejandra Godwin PA-C Tissues: Rectum, NOS Procedures: Surgery Specimen Level IV HEADER OPERATION: Colonoscopy - open access (MAC) PRE-OP DIAGNOSIS: Screening TISSUE SUBMITTED: Rectal polyps x2 MICROSCOPIC DIAGNOSIS Rectal polyps, biopsy: Fragments of tubular adenoma. AM:dez 06/29/20 MICROSCOPIC DESCRIPTION Slides are reviewed. GROSS DESCRIPTION Received in fixative is one container labeled with the patient's name and designated rectal polyps. The specimen consists of multiple irregular fragments of light nash soft tissue that in aggregate measure 1 x 0.5 x 0.2 cm. The specimen is totally submitted in one cassette. / AM:dez 06/28/20 TC:5 CPT: 62064
--- NOTE | 2020-06-28 08:23 | OP.CCLET_ITS ---
[facility] for Daisha Godwin This procedure was performed on Sunday, June 28, 2020. My impressions and recommendations are as follows: Impressions : - Two small polyps in the rectum, removed with a hot snare. Resected and retrieved. - Diverticulosis in the sigmoid colon. - The examination was otherwise normal on direct and retroflexion views. Recommendations : - Discharge patient to home. - Resume previous diet. - Continue present medications. - Await pathology results. - Repeat colonoscopy in 5 years for surveillance. My findings are described in the full procedure note, which is enclosed. If I can be of further assistance, please feel free to contact me at Doctor phone number(s): , Work: . Sincerely, Gabriel Jansen MD 06/28/2020 8:23:11 AM This report has been signed electronically.
--- NOTE | 2020-06-28 08:23 | OP.COLON_ITS ---
Patient Name: Daisha Waer Procedure Date: 06/28/2020 7:21 AM Date of : 1960 Age: 60 Procedure: Colonoscopy Indications: Screening for colorectal malignant neoplasm Providers: Gabriel Jansen MD Referring MD: Alejandra Godwin Medicines: Monitored Anesthesia Care Patient Profile: This is a 60 year old female. Refer to note in patient chart for documentation of history and physical. Last Colonoscopy: none. The patient's first colonoscopy is today. Complications: No immediate complications. Procedure: Pre-Anesthesia Assessment: - Prior to the procedure, a History and Physical was performed, and patient medications and allergies were reviewed. The patient's tolerance of previous anesthesia was also reviewed. The risks and benefits of the procedure and the sedation options and risks were discussed with the patient. All questions were answered, and informed consent was obtained. Prior Anticoagulants: The patient has taken no previous anticoagulant or antiplatelet agents. After reviewing the risks and benefits, the patient was deemed in satisfactory condition to undergo the procedure. After I obtained informed consent, the scope was passed under direct vision. Throughout the procedure, the patient's blood pressure, pulse, and oxygen saturations were monitored continuously. The pediatric colonoscope was introduced through the anus and advanced to the cecum, identified by appendiceal orifice and ileocecal valve. The colonoscopy was performed without difficulty. The patient tolerated the procedure well. The quality of the bowel preparation was good. Scope In: 8:02:52 AM Scope Withdrawal Time 0 hours 8 minutes 56 seconds Scope Out: 8:17:48 AM Total Procedure Duration Time 0 hours 14 minutes 56 seconds Findings: Two polyps were found in the rectum. The polyps were small in size. These polyps were removed with a hot snare. Resection and retrieval were complete. Small-mouthed diverticula were found in the sigmoid colon. The exam was otherwise without abnormality on direct and retroflexion views. Impression: - Two small polyps in the rectum, removed with a hot snare. Resected and retrieved. - Diverticulosis in the sigmoid colon. - The examination was otherwise normal on direct and retroflexion views. Recommendation: - Discharge patient to home. - Resume previous diet. - Continue present medications. - Await pathology results. - Repeat colonoscopy in 5 years for surveillance. Procedure Code(s): --- Professional --- 94913, Colonoscopy, flexible; with removal of tumor(s), polyp(s), or other lesion(s) by snare technique Diagnosis Code(s): --- Professional --- Z12.11, Encounter for screening for malignant neoplasm of colon K62.1, Rectal polyp K57.30, Diverticulosis of large intestine without perforation or abscess without bleeding CPT copyright 2017 [employer]. All rights reserved. The codes documented in this report are preliminary and upon label coder review may be revised to meet current compliance requirements. Gabriel Jansen MD 06/28/2020 8:23:11 AM This report has been signed electronically. Number of Addenda: 0 Note Initiated On: 06/28/2020 7:21 AM
== END 2020-06-28 09:26 | disposition home or self-care (01) ==
LOC: EN 07:04 → AC 07:04
PROVIDERS: PCP Family Medicine; Referring Provider Family Medicine; Visit Provider Surgery
PROC: 0DJD8ZZ Inspection of Lower Intestinal Tract, Via Natural or Artificial Opening Endoscopic (ICD-10-PCS; CPT 45378; principal; 2020-06-28 07:55)
DX: Z12.11 Encounter for screening for malignant neoplasm of colon (principal); K62.1 Rectal polyp; K57.30 Diverticulosis of large intestine without perforation or abscess without bleeding; I10 Essential (primary) hypertension; K21.9 Gastro-esophageal reflux disease without esophagitis; F41.9 Anxiety disorder, unspecified; M85.80 Other specified disorders of bone density and structure, unspecified site; Z78.0 Asymptomatic menopausal state; Z86.19 Personal history of other infectious and parasitic diseases; Z85.3 Personal history of malignant neoplasm of breast; Z85.828 Personal history of other malignant neoplasm of skin; Z87.891 Personal history of nicotine dependence
CPT/HCPCS: 45385; 88305; J7120; J2405

== ENCOUNTER → 2020-08-16 12:23 | Outpatient (CLI) | payer BC, SELFPAY ==
[2020-03-22 11:24] VITALS: BMI 24.9
[2020-05-16 10:24] VITALS: BMI 25.4
[2020-06-28 07:36] VITALS: BMI 24.4
--- NOTE | 2020-08-16 12:31 | BD_ITS ---
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 COMPARISON: None. FINDINGS: Lumbar Spine (L1-L4): g/cm2 (0.897) / T-score (-2.2) / Z-score (-0.9) Findings are suggestive of osteopenia with a high fracture risk. Left Femur Total: g/cm2 (0.743) / T-score (-2.1) / Z-score (-1.1) Left Femoral Neck: g/cm2 (0.746) / T-score (-2.1) / Z-score (-0.8) Right Femur Total: g/cm2 (0.783) / T-score (-1.8) / Z-score (-0.8) Right Femoral Neck: g/cm2 (0.763) / T-score (-2.0) / Z-score (-0.6) BD/Dexa Bone Density Study IMPRESSION: The patient is considered osteopenic as outlined below according to World Mike Organization (WHO) criteria with a high fracture risk. Reference Information: The T-score is the number of standard deviations above or below the standard which is normal for young adults at their peak bone mineral density. The World Health Organization (WHO) interprets the T-scores as follows: Above -1 Normal bone density Between -1 and -2.5 Osteopenia Equal to / or below -2.5 Osteoporosis As a practical clinical guideline, osteopenia may be graded as follows: Mild -1 through -1.5 Moderate -1.6 through -2.0 Severe -2.1 through -2.4 The Z-score is the number of standard deviations above or below age-matched controls. A Z-score of less than -1.5 would be considered abnormal. References: 1. NIH Osteoporosis and Related Bone Diseases www osteo.org 2. International Society for Clinical Densitometry www iscd.org 3. National Osteoporosis Foundation www nof.org Electronically Signed: Rex Glez MD at 13:41 EST , Service support ,
== END ==
PROVIDERS: PCP Family Medicine; Visit Provider Internal Medicine Hematology & Oncology
DX: M85.80 Other specified disorders of bone density and structure, unspecified site (principal); Z79.83 Long term (current) use of bisphosphonates; Z79.811 Long term (current) use of aromatase inhibitors; Z85.3 Personal history of malignant neoplasm of breast
CPT/HCPCS: 77080

== ENCOUNTER → 2020-09-16 12:22 | Outpatient (CLI) | payer BC, SELFPAY ==
[2020-03-22 11:24] VITALS: BMI 24.9
[2020-09-14 13:27] VITALS: BMI 25.7
--- NOTE | 2020-09-16 12:22 | US_ITS ---
STUDY: ULTRASOUND BREAST - RIGHT REASON FOR EXAM: Female, 60 years old. Palpable right axillary nodule. TECHNIQUE: Axial and longitudinal images of the RIGHT breast were performed with a high resolution ultrasound transducer. # OF IMAGES: 18 COMPARISON: None. FINDINGS: RIGHT Breast: Targeted ultrasound of the right axillary region was obtained. No sonographic abnormality is seen. US/Breast Limited Unilateral IMPRESSION: No sonographic abnormality is seen. ASSESSMENT CATEGORY: BIRADS Category 1: Negative. A letter regarding these results will be sent to the patient by the facility within 30 days. Electronically Signed: Rex Glez MD at 14:36 EST , Service support ,
== END ==
PROVIDERS: PCP Family Medicine; Referring Provider Student in an Organized Health Care Education/Training Program; Visit Provider Student in an Organized Health Care Education/Training Program
DX: C50.911 Malignant neoplasm of unspecified site of right female breast (principal)
CPT/HCPCS: 76642

== ENCOUNTER → 2021-01-17 13:31 | Outpatient (CLI) | payer BC, SELFPAY ==
[2020-03-22 11:24] VITALS: BMI 24.9
[2020-12-07 10:26] VITALS: BMI 25.2
[2021-01-17 13:04] VITALS: BMI 24.9
--- NOTE | 2021-01-17 13:32 | CT_ITS ---
STUDY: LOW DOSE CT LUNG CANCER SCREENING REASON FOR EXAM: Female, 60 years old. Lung cancer screening -- 42 pack year history; former smoker; asymptomatic RADIATION DOSAGE (If Supplied By Facility): CTDIvol = ( 3.02 ) mGy, DLP = ( 95.53 ) mGycm TECHNIQUE: No contrast was administered. Low dose technique was utilized (average mAS-38 and kVp 120). 1.25 mm axial source images with a slice interval of 1.25-mm were reconstructed in lung windows. 2.5 mm axial source images with a slice interval of 2.5-mm were reconstructed in lung windows. 5.0 mm axial source images with a slice interval of 5.0-mm were reconstructed in soft tissue windows. Nodule measured using lung windows on PACS and/or independent workstation with automated measurement of minimum and maximum diameter. Nodule measurement reported as average diameter rounded to the nearest whole number. Growth is defined as an increase ins size of greater than 1.5 mm. COMPARISON: None. NODULES: No suspicious nodules are seen. Emphysema: Scarring at both lung apices. Focal scarring in the lateral aspect of the right upper lobe. Mild degree of emphysematous changes. Endobronchial lesion: None Aorta: Atherosclerotic calcification of the aortic arch and descending thoracic aorta. Coronary arteries: Coronary artery calcification. Heart: Unremarkable Pulmonary artery: Unremarkable Mediastinal nodes: Small mediastinal lymph nodes. Other chest and abdominal findings: CT/Low Dose CT Lung Screening IMPRESSION: Lung-RADS category 2 - Continue annual screening with LDCT in 12 months. IMPORTANT NOTES FOR USE: ACR Lung-RADS Version 1.1 Assessment Categories Release Date: 2018 Category: Coded 0-4 bases on nodule(s) with highest degree of suspicion. Negative screen is defined as categories 1 and 2; a positive screen is defined as categories 3 and 4. Category 3 and 4A nodules that are unchanged on interval CT should be coded as category 2, and individuals returned to screening in 12 months. Category 4X: Category 3 or 4 nodules with additional imaging findings that increase the suspicion of lung cancer, such as spiculation, GGN that doubles in size in 1 year, enlarged lymph notes, etc. Category Modifiers: S (significant finding unrelated to lung cancer) Electronically Signed: Rex Glez MD at 14:17 EDT , Service support ,
== END ==
PROVIDERS: PCP Family Medicine; Referring Provider Nurse Practitioner Family; Visit Provider Nurse Practitioner Family
DX: Z12.2 Encounter for screening for malignant neoplasm of respiratory organs (principal); Z87.891 Personal history of nicotine dependence
CPT/HCPCS: 71271

== ENCOUNTER → 2021-01-25 10:12 | Outpatient (CLI) | payer BC, SELFPAY ==
[2020-03-22 11:24] VITALS: BMI 24.9
[2020-12-07 10:26] VITALS: BMI 25.2
[2021-01-17 13:04] VITALS: BMI 24.9
--- NOTE | 2021-01-25 10:13 | BI_ITS ---
MAMMOGRAPHY - BILATERAL SCREENING REASON FOR EXAM: Female, 60 years old. Routine annual screening examination. PERTINENT HISTORY: Personal history of breast cancer. Prior right lumpectomy and radiation treatment. Grandmother with breast cancer. TECHNIQUE: Digital bilateral breast sarwat (3D mammographic acquisition) in the CC and MLO projections. 2-D mediolateral oblique (MLO) and craniocaudad (CC) views of both breasts were obtained. CAD: Full Field Digital Mammography with Computer Added Detection was performed. COMPARISON: Comparison is made with prior examination dated 01/21/2020. FINDINGS: Breast Composition: The breasts are heterogeneously dense, which may obscure small masses. There are no dominant masses or suspicious calcifications. A tissue clip marker is seen in the deep upper lateral aspect of the right breast. The previously seen spiculated nodule in the deep lateral aspect of the right breast has been resected. No other significant abnormalities are identified. BI/SCRN MAMM (CAD)W/SARWAT BILAT IMPRESSION: Status post right lumpectomy with resection of the nodular density in the deep lateral aspect of the right breast. Yearly follow-up mammogram recommended. (A) ASSESSMENT CATEGORY: BIRADS Category 2: Benign. A letter regarding these results will be sent to the patient by the facility within 30 days. Approximately 10% of breast cancers are not detected by mammography. A normal mammogram should not delay biopsy of a clinically suspicious abnormality. [id number] Electronically Signed: Rex Glez MD at 11:04 EDT , Service support ,
== END ==
PROVIDERS: PCP Family Medicine; Referring Provider Nurse Practitioner Family; Visit Provider Nurse Practitioner Family
DX: Z12.31 Encounter for screening mammogram for malignant neoplasm of breast (principal); Z85.3 Personal history of malignant neoplasm of breast; Z80.3 Family history of malignant neoplasm of breast
CPT/HCPCS: 77063; 77067

== ENCOUNTER 2021-09-18 08:54 | Outpatient (CLI) | payer BC, SELFPAY ==
[2020-03-22 11:24] VITALS: BMI 24.9
--- NOTE | 2021-09-18 09:08 | NM_ITS ---
CLINICAL: 61-year-old female with reported history of carcinoma of the breast with current complaint of left posterior back-scapular pain. WHOLE BODY 99m Tc MDP RADIONUCLIDE BONE SCINTIGRAPHY COMPARISON: None available FINDINGS: Following the intravenous administration of 26.1 mCi of 99m Tc MDP, whole body bone images reveal: 1. Increased radiopharmaceutical concentration is defined in the mid cervical spine posteriorly on the right, lower cervical spine posteriorly on the left, the acromioclavicular compartment of the bilateral shoulders (R > L), the right hand, lower lumbar spine and sacrum posteriorly. 2. The remaining skeletal structures are scintigraphically unremarkable with normal-appearing renal images and urinary bladder activity identified. NM/Bone Scan Whole Body IMPRESSION: 1. The increase in radiopharmaceutical concentration is encountered in the cervical spine, bilateral shoulders, lower lumbar spine and sacrum is most consistent with degenerative arthritis. 2. There is no definitive scintigraphic evidence of diffuse axial skeletal metastatic disease, left scapular, left posterior chest wall metastasis on the present examination. Electronically Signed: Miguel Mirza DO at 22:29 EST ,
== END 2021-09-18 23:59 | disposition home or self-care (01) ==
LOC: NM 08:56
PROVIDERS: PCP Family Medicine; Visit Provider Nurse Practitioner Family
DX: M89.8X1 Other specified disorders of bone, shoulder (principal)
CPT/HCPCS: 78306; A9503

== ENCOUNTER → 2022-01-26 | Outpatient (CLI) | payer BC, SELFPAY ==
[2020-03-22 11:24] VITALS: BMI 24.9
--- NOTE | 2022-01-26 10:35 | BI_ITS ---
MAMMOGRAPHY - BILATERAL SCREENING REASON FOR EXAM: Female, 61 years old. Routine annual screening examination. PERTINENT HISTORY: Personal history of breast cancer. Prior right lumpectomy and axillary node dissection. TECHNIQUE: Digital bilateral breast sarwat (3D mammographic acquisition) in the CC and MLO projections. 2-D mediolateral oblique (MLO) and craniocaudad (CC) views of both breasts were obtained. CAD: Full Field Digital Mammography with Computer Added Detection was performed. COMPARISON: Comparison is made with prior study dated 01/25/2021 and 02/18/2020. FINDINGS: Breast Composition: The breasts are heterogeneously dense, which may obscure small masses. There are no dominant masses or suspicious calcifications. The patient is status post lumpectomy in the upper deep lateral aspect of the right breast. Surgical clips are seen in the right axillary region. No other significant abnormalities are identified. There has been no significant change since the prior study. BI/SCRN MAMM (CAD)W/SARWAT BILAT IMPRESSION: Stable bilateral screening mammogram. Yearly follow-up mammogram recommended. (A) ASSESSMENT CATEGORY: BIRADS Category 2: Benign. A letter regarding these results will be sent to the patient by the facility within 30 days. Approximately 10% of breast cancers are not detected by mammography. A normal mammogram should not delay biopsy of a clinically suspicious abnormality. [id number] Electronically Signed: Rex Glez MD at 12:18 EDT ,
== END | disposition home or self-care (01) ==
LOC: OPBI 10:35
PROVIDERS: PCP Family Medicine; Referring Provider Student in an Organized Health Care Education/Training Program; Visit Provider Student in an Organized Health Care Education/Training Program
DX: Z12.31 Encounter for screening mammogram for malignant neoplasm of breast (principal); Z85.3 Personal history of malignant neoplasm of breast
CPT/HCPCS: 77063; 77067

== ENCOUNTER → 2022-02-06 | Outpatient (CLI) | payer BC, SELFPAY ==
[2020-03-22 11:24] VITALS: BMI 24.9
--- NOTE | 2022-02-06 14:36 | CT_ITS ---
STUDY: LOW DOSE CT LUNG CANCER SCREENING REASON FOR EXAM: Female, 61 years old. Lung cancer screening -- and gt;30 pk yr hx; former smoker; asymptomatic RADIATION DOSAGE (If Supplied By Facility): CTDIvol = ( 2.01 ) mGy, DLP = ( 65.19 ) mGycm TECHNIQUE: No contrast was administered. Low dose technique was utilized (average mAS-38 and kVp 120). 1.25 mm axial source images with a slice interval of 1.25-mm were reconstructed in lung windows. 2.5 mm axial source images with a slice interval of 2.5-mm were reconstructed in lung windows. 5.0 mm axial source images with a slice interval of 5.0-mm were reconstructed in soft tissue windows. COMPARISON: Comparison is made with prior study dated 01/17/2021. NODULES: No suspicious nodules are seen. Once again, stable scarring at the lung apices. Focal scarring in the lateral aspect of the right middle lobe. Mild degree of emphysematous changes. Endobronchial lesion: None Aorta: Atherosclerotic plaque formation of the aortic arch and descending thoracic aorta. CORONARY ARTERIES: Coronary artery calcification is seen. Heart: Unremarkable Pulmonary artery: Unremarkable Mediastinal nodes: Small mediastinal lymph nodes. Other chest and abdominal findings: CT/Low Dose CT Lung Screening IMPRESSION: Lung-RADS category 2 - Continue annual screening with LDCT in 12 months. IMPORTANT NOTES FOR USE: ACR Lung-RADS Version 1.1 Assessment Categories Release Date: 2018 Category: Coded 0-4 bases on nodule(s) with highest degree of suspicion. Negative screen is defined as categories 1 and 2; a positive screen is defined as categories 3 and 4. Category 3 and 4A nodules that are unchanged on interval CT should be coded as category 2, and individuals returned to screening in 12 months. Category 4X: Category 3 or 4 nodules with additional imaging findings that increase the suspicion of lung cancer, such as spiculation, GGN that doubles in size in 1 year, enlarged lymph notes, etc. Category Modifiers: S (significant finding unrelated to lung cancer) Electronically Signed: Rex Glez MD at 15:10 EDT ,
== END | disposition home or self-care (01) ==
LOC: CT 14:35
PROVIDERS: PCP Family Medicine; Referring Provider Nurse Practitioner Family; Visit Provider Nurse Practitioner Family
DX: Z12.2 Encounter for screening for malignant neoplasm of respiratory organs (principal); Z87.891 Personal history of nicotine dependence
CPT/HCPCS: 71271

== ENCOUNTER 2022-04-15 11:13 | Emergency (ER) | payer BC, SELFPAY ==
[2020-03-22 11:24] VITALS: BMI 24.9
[2022-04-15 11:14] VITALS: BP 138/87; PULSE 69; RESP 17; TEMP 36.6; O2SAT 96; BMI 26.2
[2022-04-15 11:17] VITALS: BP 138/87; PULSE 69; RESP 17; TEMP 36.6; O2SAT 96
--- NOTE | 2022-04-15 11:34 | RAD_ITS ---
STUDY: X-RAY CHEST REASON FOR EXAM: Female, 61 years old. cough TECHNIQUE: PA and lateral views of the chest. COMPARISON: None. FINDINGS: The lungs are clear and expanded. There is no demonstrated pleural abnormality. Normal size heart. Normal mediastinum and gallo. Normal visualized pulmonary arteries. Normal visualized aortic arch and descending thoracic aorta. Normal visualized thoracic spine. Normal visualized ribs, clavicles, and shoulders. There is no demonstrated abnormality of the visualized soft tissue structures of the upper abdomen. RAD/Chest PA and Lateral IMPRESSION: Normal x-ray examination of the chest. Electronically Signed: Miguel Cruz MD at 12:29 EDT ,
--- NOTE | 2022-04-15 11:35 | EDS_ITS ---
HPI <DEVIN Das - Last Filed: 04/15/22 12:38> History of Present Illness Chief Complaint: Cough Narrative Narrative: 61-year-old female with history of breast cancer, hypertension, diabetes who quit smoking 4 years ago presents the emergency department with 6 days of generalized body aches, fever, chills, cough worse at nighttime. The patient did take 2 COVID test at home which both came back negative. Patient is concerned because she still feels symptoms after 6 days and wants to rule out any pneumonia. Patient denies any nausea or vomiting, patient states she still has an appetite. Patient states that a productive cough. Again the cough is worse at nighttime. 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 Other abnormal auditory perceptions, unspecified ear Pain of left scapula Home Medications cholecalciferol (vitamin D3) 125 mcg (5,000 unit) capsule 5,000 unit PO DAILY 12/03/18 [History Last Taken Unknown] metoprolol succinate 50 mg tablet,extended release 24 hr 50 mg PO DAILY 12/03/18 [History Last Taken 02/18/20 07:00] valsartan 80 mg tablet 80 mg PO DAILY 12/03/18 [History Last Taken 02/18/20 07:00] ibuprofen 200 mg tablet 200 mg PO Q6H PRN PRN Mod-Severe Pain (4-10/10) 12/05/18 [Rx Last Taken Unknown] omeprazole 20 mg capsule,delayed release 20 mg PO DAILY 02/03/20 [History Last Taken 02/18/20 07:00] calcium carbonate 500 mg calcium (1,250 mg) tablet 1,250 mg PO DAILY 02/17/20 [History Last Taken Unknown] rosuvastatin 5 mg tablet 5 mg PO QODAY 09/14/20 [History Last Taken Unknown] fluoxetine 20 mg capsule 40 mg PO DAILY 12/07/20 [History Last Taken Unknown] denosumab 60 mg/mL subcutaneous syringe (Prolia) 60 mg subcut [id number] 05/04/21 [History Last Taken Unknown] anastrozole 1 mg tablet 1 mg PO DAILY 90 days #90 tabs 04/09/22 [Rx Last Taken Unknown] benzonatate 100 mg capsule 100 mg PO TID #20 caps 04/15/22 [Rx Last Taken Unknown] Allergy/AdvReac Type Severity Reaction Status Date / Time No Known Allergies Allergy Verified 04/15/22 11:13 Family History Mother Diabetes Heart disease Hypertension High cholesterol Brother Colon cancer High cholesterol Hypertension Surgical History H/O bilateral salpingo-oophorectomy History of lumpectomy Hx of breast biopsy Hx of hysterectomy Hx of mastoidectomy S/P Mohs surgery for basal cell carcinoma Social History Smoking Status: Current every day smoker tobacco type: cigarettes Tobacco: How many years used: 40 how long ago did patient quit smokin years second hand exposure: No quit status: quit date established alcohol intake: never substance use type: does not use caffeine: Yes Type: coffee what type of physical activity do you participate in: walking frequency: daily ROS <DEVIN Das - Last Filed: 04/15/22 12:38> ROS ED ROS Narrative Constitutional: Negative for weight loss, weakness. Positive fever and chills Eyes: Negative for vision loss, vision change, double vision ENT: Negative for any sore throat, ear pain, congestion Cardiovascular: Negative for any chest pain, tightness, palpitations Respiratory: Negative for any hemoptysis, dyspnea, dyspnea on exertion, orthopnea. Positive for cough, sputum production Gastrointestinal: Negative for any abdominal pain, nausea, vomiting, diarrhea, constipation, blood in stool, blood in vomit : Negative for any urinary frequency, dysuria, retention, blood in urine Muscle skeletal: Negative for any stiffness, myalgias, arthralgias, neck pain, back pain. Positive for muscle aches Neurological: Negative for any headache, syncope, numbness or tingling, dizziness Skin: Negative for any rashes, lumps, itching, abrasions, lacerations Psychiatric: Negative for any depression, anxiety, stress, suicidal ideation, homicidal ideation Hematologic: Negative for any easy bruising, excessive bruising, easy bleeding Allergies: Negative for any eczema, hives, rash EXAM <DEVIN Das - Last Filed: 04/15/22 12:38> Physical Exam Narrative Exam Narrative: Vital signs reviewed. HEET: Head normocephalic atraumatic, TMs clear bilaterally. Posterior pharynx is clear, moist mucous membranes. Nares clear bilaterally. Neck: Supple with no lymphadenopathy or tenderness. No signs of meningismus, negative jolt sign. Cardiac: Regular rate and rhythm no murmurs gallops or rubs, equal peripheral pulses bilaterally. Respiratory: Lungs clear to auscultation bilaterally. No chest tenderness. Abdomen: Soft, nontender, nondistended. No abdominal bruit or pulsatile masses. No hepatosplenomegaly Extremities: No peripheral edema, no signs of gross trauma or deformity. Active full range of motion of all extremities. Neuro: Cranial nerves II through XII intact, no focal neurological deficits. Skin: Clean dry and intact with no rash, purpura, petechiae, vesicles or pustules. Backs/flank: No CVA tenderness, no midline spinal tenderness, no deformity. Psych: Normal mood and affect. No SI, HI or acute psychosis. Const Vital Signs: 04/15/22 11:14 04/15/22 11:17 04/15/22 11:17 Temperature 97.9 F 97.9 F Temperature Source Temporal Temporal Pulse Rate 69 69 Respiratory Rate 17 17 Respiratory Effort Normal Respiratory Pattern Normal Blood Pressure 138/87 H 138/87 H Blood Pressure Mean 104 104 Pulse Ox 96 96 Oxygen Delivery Method Room Air Room Air Room Air 04/15/22 12:17 04/15/22 13:03 Temperature 97.9 F Temperature Source Temporal Pulse Rate 69 Respiratory Rate 17 16 Respiratory Effort Respiratory Pattern Blood Pressure 138/87 H 151/80 H Blood Pressure Mean 104 Pulse Ox 96 Oxygen Delivery Method Room Air <Dr. Edmond Abdul MD - Last Filed: 04/15/22 16:15> Physical Exam Const Vital Signs: 04/15/22 11:14 04/15/22 11:17 04/15/22 11:17 Temperature 97.9 F 97.9 F Temperature Source Temporal Temporal Pulse Rate 69 69 Respiratory Rate 17 17 Respiratory Effort Normal Respiratory Pattern Normal Blood Pressure 138/87 H 138/87 H Blood Pressure Mean 104 104 Pulse Ox 96 96 Oxygen Delivery Method Room Air Room Air Room Air 04/15/22 12:17 04/15/22 13:03 Temperature 97.9 F Temperature Source Temporal Pulse Rate 69 Respiratory Rate 17 16 Respiratory Effort Respiratory Pattern Blood Pressure 138/87 H 151/80 H Blood Pressure Mean 104 Pulse Ox 96 Oxygen Delivery Method Room Air [facility] <DEVIN Das - Last Filed: 04/15/22 12:38> [facility] Lab Data Attestation: I reviewed the patient's lab results. Labs: Laboratory Results - last 24 hr 04/15/22 04/15/22 11:34 11:34 WBC 10.0 RBC 4.15 L Hgb 12.9 Hct 38.6 MCV 93.0 MCH 31.1 MCHC 33.4 RDW Std Deviation 46.7 H RDW Coeff of Andrew 13.7 Plt Count 419 MPV 9.6 Immature Gran % (Auto) 0.300 Neut % (Auto) 77.0 H Lymph % (Auto) 15.6 L [place] % (Auto) 5.8 Eos % (Auto) 0.9 Baso % (Auto) 0.4 Absolute Neuts (auto) 7.7 Absolute Lymphs (auto) 1.57 Nucleated RBC % 0 Sodium 141 Potassium 3.3 L Chloride 103 Carbon Dioxide 26.0 Anion Gap 12 BUN 9 Creatinine 0.74 Estim Creat Clear Calc 67.19 Est GFR (MDRD) Af Amer 101 Est GFR (MDRD) Non-Af 84 BUN/Creatinine Ratio 12.1 Glucose 112 H Calcium 9.5 Radiography Diagnostic Testing: Clinical Impression(s) from Imaging Studies Chest X-Ray 04/15/22 11:34 IMPRESSION: Normal x-ray examination of the chest. Electronically Signed: Miguel Cruz MD at 12:29 EDT , Treatment and Re-Evaluation Narrative: Patient appears well, patient appears nontoxic, vital signs are stable. Patient presents to the emergency department with 6 days of generalized malaise, body aches, cough, intermittent fever and chills. Patient is afebrile here, patient did receive some basic laboratory values, patient CBC and chemistries were unre markable, patient's potassium was 3.3, she will be given 20 mill equivalents here. Patient did receive IV fluids, she will receive IV Toradol. She did receive a 2 view chest x-ray interpreted by ER physician which shows a normal x- ray of the chest. At this time, there is no indication of any pneumonia, COVID- 19, influenza. Patient's physical examination is consistent with a viral infection, she is instructed to maintain hydration, use ibuprofen and Tylenol for any body aches. She has no issues with eating and drinking, she will continue to eat and drink as needed. Patient is stable for discharge. Instructed return for any worsening symptoms <Dr. Edmond Abdul MD - Last Filed: 04/15/22 16:15> [facility] Lab Data Labs: Laboratory Results - last 24 hr 04/15/22 04/15/22 11:34 11:34 WBC 10.0 RBC 4.15 L Hgb 12.9 Hct 38.6 MCV 93.0 MCH 31.1 MCHC 33.4 RDW Std Deviation 46.7 H RDW Coeff of Andrew 13.7 Plt Count 419 MPV 9.6 Immature Gran % (Auto) 0.300 Neut % (Auto) 77.0 H Lymph % (Auto) 15.6 L [place] % (Auto) 5.8 Eos % (Auto) 0.9 Baso % (Auto) 0.4 Absolute Neuts (auto) 7.7 Absolute Lymphs (auto) 1.57 Nucleated RBC % 0 Sodium 141 Potassium 3.3 L Chloride 103 Carbon Dioxide 26.0 Anion Gap 12 BUN 9 Creatinine 0.74 Estim Creat Clear Calc 67.19 Est GFR (MDRD) Af Amer 101 Est GFR (MDRD) Non-Af 84 BUN/Creatinine Ratio 12.1 Glucose 112 H Calcium 9.5 Radiography Diagnostic Testing: Clinical Impression(s) from Imaging Studies Chest X-Ray 04/15/22 11:34 IMPRESSION: Normal x-ray examination of the chest. Electronically Signed: Miguel Cruz MD at 12:29 EDT , Treatment and Re-Evaluation Narrative: Patient appears well, patient appears nontoxic, vital signs are stable. Patient presents to the emergency department with 6 days of generalized malaise, body aches, cough, intermittent fever and chills. Patient is afebrile here, patient did receive some basic laboratory values, patient CBC and chemistries were unremarkable, patient's potassium was 3.3, she will be given 20 mill equivalents here. Patient did receive IV fluids, she will receive IV Toradol. She did receive a 2 view chest x-ray interpreted by ER physician which shows a normal x- ray of the chest. At this time, there is no indication of any pneumonia, COVID- 19, influenza. Patient's physical examination is consistent with a viral i nfection, she is instructed to maintain hydration, use ibuprofen and Tylenol for any body aches. She has no issues with eating and drinking, she will continue to eat and drink as needed. Patient is stable for discharge. Instructed return for any worsening symptoms Patient was seen by me, I evaluated her, she is presenting with myalgias, subjective fevers and chills, body aches and a nonproductive cough, this is been ongoing for 4 to 5 days her home COVID was negative. She has somewhat decreased p.o. intake and some nausea. On exam she is no evidence of upper respiratory congestion, she has clear lungs, supple neck and she appears well. Her work-up is unremarkable, she appears well she was hydrated and I think she can be stable will be discharged home. Discharge Plan Triage Chief Complaint: Cough ED Midlevel Provider: Edmond Brown ED Provider: Edmond Abdul Dx/Rx/DC Orders Clinical Impression: Viral syndrome, Headache Instructions: ED Viral Syndrome (Adult), ED URI, Viral, No Abx (Adult) Prescriptions: New benzonatate 100 mg capsule 100 mg PO TID Qty: 20 0RF No Action omeprazole 20 mg capsule,delayed release(DR/EC) 20 mg PO DAILY Prolia 60 mg/mL syringe 60 mg subcut [id number] metoprolol succinate 50 MG tablet extended release 24 hr 50 mg PO DAILY valsartan 80 MG tablet 80 mg PO DAILY cholecalciferol (vitamin D3) 5,000 UNIT capsule 5,000 unit PO DAILY ibuprofen 200 MG tablet 200 mg PO Q6H PRN PRN (Reason: Mod-Severe Pain (4-1010)) 0RF fluoxetine 20 mg capsule 40 mg PO DAILY rosuvastatin 5 MG tablet 5 mg PO QODAY calcium carbonate 500 mg calcium (1,250 mg) tablet 1,250 mg PO DAILY anastrozole 1 mg tablet 1 mg PO DAILY 90 Days Qty: 90 3RF Primary Care Provider: Alejandra Godwin Referrals: Alejandra Godwin PA-C [Primary Care Provider] - Activity Restrictions/Additional Instructions: Continue eating and drinking normally. Use ibuprofen and Tylenol for any pain or headache Disposition Disposition: Home, Self Care Discharge Date/Time: 04/15/22 13:09
[2022-04-15 12:08] LABS: Absolute Lymphocyte Count 1.57 X10^3/uL (0.83-4.51); Absolute Neutrophil Count 7.7 X10^3/uL (2.0-7.7); Basophil# 0.04 X10^3/uL; Basophil% 0.4 % (0-1); Eosinophil# 0.09 X10^3/uL; Eosinophils% 0.9 % (0-5); Hematocrit 38.6 % (37-47); Hemoglobin 12.9 g/dL (12.0-15.0); Lymphocyte # 1.57 X10^3/ul (0.83-4.51); Lymphocyte % 15.6 % (19-41); Mean Corp Hgb Conc 33.4 g/dL (32-36); Mean Corpuscular Hgb 31.1 pg (27.0-32.0); Mean Platelet Vol. 9.6 fl (6.2-12.0); Monocyte# 0.58 X10^3/uL; Monocyte% 5.8 % (0-10); NRBC Flagged by Analyzer 0 % (0-5); Neutrophil # 7.73 X10^3/uL (2.7-7.7); Platelet Count 419 K/mm3 (150-450); RBC Distribution Width CV 13.7 % (11.6-14.6); RBC Distribution Width SD 46.7 fl (35.1-43.9); Red Blood Count 4.15 M/mm3 (4.2-5.4)
[2022-04-15 12:17] VITALS: BP 138/87; PULSE 69; RESP 17; TEMP 36.6; O2SAT 96
[2022-04-15 12:18] LABS: Anion Gap 12 (5-15); BUN 9 mg/dL (7-18); BUN/Creat Ratio 12.1 RATIO (10-20); Calcium,Total 9.5 mg/dL (8.5-10.1); Chloride 103 mmol/L (98-107); Creatinine, Serum 0.74 mg/dL (0.55-1.02); EST Glomerular Filtration Rate 84 mL/min (>60); Est Glom Filt Rate - Afr Amer 101 mL/min (>60); Estimated Creatinine Clearance 67.19 ml/min; Glucose 112 mg/dL (74-106); Potassium 3.3 mmol/L (3.5-5.1); Sodium Level 141 mmol/L (136-145)
[2022-04-15] MEDS: 0.9% Normal Saline 1,000 ML 1000 ML IV (12:20)
[2022-04-15] MEDS: Potassium Chloride Oral Tablet 20 MEQ PO (12:53)
[2022-04-15] MEDS: Ketorolac 15 MG/ML Vial IV (12:53)
[2022-04-15 13:03] VITALS: BP 151/80; RESP 16
== END 2022-04-15 13:09 | disposition home or self-care (01) ==
PROVIDERS: Nurse Practitioner; Emergency Provider Emergency Medicine; PCP Family Medicine; Visit Provider Emergency Medicine
DX: B34.9 Viral infection, unspecified (principal); E11.9 Type 2 diabetes mellitus without complications; R51.9 Headache, unspecified; I10 Essential (primary) hypertension; Z20.822 Contact with and (suspected) exposure to COVID-19; Z79.899 Other long term (current) drug therapy; Z85.3 Personal history of malignant neoplasm of breast; Z87.891 Personal history of nicotine dependence
CPT/HCPCS: 71046; 80048; 85025; 87428; 96361; 96374; 99284

== ENCOUNTER → 2022-08-21 | Outpatient (CLI) | payer BC, SELFPAY ==
[2020-03-22 11:24] VITALS: BMI 24.9
--- NOTE | 2022-08-21 13:27 | BD_ITS ---
STUDY: DUAL ENERGY X-RAY ABSORPTIOMETRY / DXA REASON FOR EXAM: Female, 62 years old. SCREENING TECHNIQUE: Bone Mineral Density (BMD) measurements of lumbar spine and bilateral hips were obtained. COMPARISON: Comparison is made with prior examination dated 08/16/2020. FINDINGS: Lumbar Spine (L1-L4): g/cm2 (0.821) / T-score (-1.4) / Z-score (0.2) Findings are suggestive of osteopenia with a low fracture risk. Left Femur Total: g/cm2 (0.737) / T-score (-1.7) / Z-score (-0.5) Left Femoral Neck: g/cm2 (0.625) / T-score (-2.0) / Z-score (-0.5) Right Femur Total: g/cm2 (0.705) / T-score (-1.9) / Z-score (-0.8) Right Femoral Neck: g/cm2 (0.583) / T-score (-2.4) / Z-score (-0.9) The T-Scores on the most recent prior examination were: Lumbar Spine (L1-L4): There has been improvement of bone density since the previous examination. Left Femur Total: which represents an improvement of 7.8%. Right Femur Total: which represents a worsening of 2.5%. BD/Dexa Bone Density Study IMPRESSION: The patient is considered osteopenic as outlined below according to World Mike Organization (WHO) criteria with a high fracture risk. There has been improvement of bone density since the previous examination. Reference Information: The T-score is the number of standard deviations above or below the standard which is normal for young adults at their peak bone mineral density. The World Health Organization (WHO) interprets the T-scores as follows: Above -1 Normal bone density Between -1 and -2.5 Osteopenia Equal to / or below -2.5 Osteoporosis As a practical clinical guideline, osteopenia may be graded as follows: Mild -1 through -1.5 Moderate -1.6 through -2.0 Severe -2.1 through -2.4 The Z-score is the number of standard deviations above or below age-matched controls. A Z-score of less than -1.5 would be considered abnormal. References: 1. NIH Osteoporosis and Related Bone Diseases www osteo.org 2. International Society for Clinical Densitometry www iscd.org 3. National Osteoporosis Foundation www nof.org Electronically Signed: Rex Glez MD at 10:02 EST ,
== END | disposition home or self-care (01) ==
PROVIDERS: PCP Family Medicine; Referring Provider Internal Medicine Hematology & Oncology; Visit Provider Internal Medicine Hematology & Oncology
DX: Z13.820 Encounter for screening for osteoporosis (principal); M85.80 Other specified disorders of bone density and structure, unspecified site
CPT/HCPCS: 77080

== ENCOUNTER → 2023-02-12 | Outpatient (CLI) | payer BC, SELFPAY ==
[2020-03-22 11:24] VITALS: BMI 24.9
--- NOTE | 2023-02-12 11:50 | BI_ITS ---
MAMMOGRAPHY - BILATERAL SCREENING REASON FOR EXAM: Female, 62 years old. Routine annual screening examination. PERTINENT HISTORY: Personal history of breast cancer. Prior right lumpectomy and radiation treatment. Grandmother with breast cancer. TECHNIQUE: Digital bilateral breast sarwat (3D mammographic acquisition) in the CC and MLO projections. 2-D mediolateral oblique (MLO) and craniocaudad (CC) views of both breasts were obtained. CAD: Full Field Digital Mammography with Computer Added Detection was performed. COMPARISON: Comparison is made with prior study January 26, 2022 and January 25, 2021. FINDINGS: Breast Composition: The breasts are heterogeneously dense, which may obscure small masses. There are no dominant masses or suspicious calcifications. The patient is status post right lumpectomy in the upper lateral aspect of the breast. Surgical clips are seen in the axillary region as well. No other significant abnormalities are identified. There has been no significant change since the prior study. BI/SCRN MAMM (CAD)W/SARWAT BILAT IMPRESSION: Stable bilateral screening mammogram. Yearly follow-up mammogram recommended. (A) ASSESSMENT CATEGORY: BIRADS Category 2: Benign. A letter regarding these results will be sent to the patient by the facility within 30 days. Approximately 10% of breast cancers are not detected by mammography. A normal mammogram should not delay biopsy of a clinically suspicious abnormality. [id number] Electronically Signed: Rex Glez MD at 13:42 EDT ,
--- NOTE | 2023-02-12 13:18 | CT_ITS ---
STUDY: LOW DOSE CT LUNG CANCER SCREENING REASON FOR EXAM: Female, 62 years old. Lung cancer screening -- 42 pk yr hx;former smoker;asymptomatic RADIATION DOSAGE (If Supplied By Facility): CTDIvol = ( 3.02 ) mGy, DLP = ( 103.07 ) mGycm TECHNIQUE: No contrast was administered. Low dose technique was utilized (average mAS-38 and kVp 120). 1.25 mm axial source images with a slice interval of 1.25-mm were reconstructed in lung windows. 2.5 mm axial source images with a slice interval of 2.5-mm were reconstructed in lung windows. 5.0 mm axial source images with a slice interval of 5.0-mm were reconstructed in soft tissue windows. COMPARISON: Comparison is made with prior NODULES: No suspicious lesion is seen. Emphysema: Stable scarring in both lung apices worse in the right upper lobe. Stable mild scarring in the lateral aspect of the right upper lobe. Emphysematous changes. Endobronchial lesion: None Aorta: Atherosclerotic calcification of the aortic arch. CORONARY ARTERIES: Coronary artery calcification is seen. Heart: Unremarkable Pulmonary artery: Unremarkable Mediastinal nodes: Small mediastinal lymph nodes. Other chest and abdominal findings: CT/Low Dose CT Lung Screening IMPRESSION: Lung-RADS category 2 - Continue annual screening with LDCT in 12 months. IMPORTANT NOTES FOR USE: ACR Lung-RADS Version 1.1 Assessment Categories Release Date: 2018 Category: Coded 0-4 bases on nodule(s) with highest degree of suspicion. Negative screen is defined as categories 1 and 2; a positive screen is defined as categories 3 and 4. Category 3 and 4A nodules that are unchanged on interval CT should be coded as category 2, and individuals returned to screening in 12 months. Category 4X: Category 3 or 4 nodules with additional imaging findings that increase the suspicion of lung cancer, such as spiculation, GGN that doubles in size in 1 year, enlarged lymph notes, etc. Category Modifiers: S (significant finding unrelated to lung cancer) Electronically Signed: Rex Glez MD at 14:09 EDT ,
== END | disposition home or self-care (01) ==
PROVIDERS: PCP Family Medicine; Referring Provider Internal Medicine Hematology & Oncology; Visit Provider Internal Medicine Hematology & Oncology
DX: Z12.31 Encounter for screening mammogram for malignant neoplasm of breast (principal); Z85.3 Personal history of malignant neoplasm of breast; Z87.891 Personal history of nicotine dependence; Z12.2 Encounter for screening for malignant neoplasm of respiratory organs
CPT/HCPCS: 71271; 77063; 77067

== ENCOUNTER → 2024-02-14 | Outpatient (CLI) | payer MEDICARE, OTHER, SELFPAY ==
[2020-03-22 11:24] VITALS: BMI 24.9
--- NOTE | 2024-02-14 09:43 | BI_ITS ---
MAMMOGRAPHY - BILATERAL SCREENING REASON FOR EXAM: Female, 63 years old. Routine annual screening examination. PERTINENT HISTORY: Personal history of breast cancer. Prior right lumpectomy with radiation treatment. Grandmother with breast cancer. TECHNIQUE: Digital bilateral breast sarwat (3D mammographic acquisition) in the CC and MLO projections. 2-D mediolateral oblique (MLO) and craniocaudad (CC) views of both breasts were obtained. CAD: Full Field Digital Mammography with Computer Added Detection was performed. COMPARISON: Comparison is made with prior study dated February 12, 2023 and January 26, 2022. FINDINGS: Breast Composition: The breasts are heterogeneously dense, which may obscure small masses. There are no dominant masses or suspicious calcifications. Once again, the patient is status post lumpectomy in the upper lateral aspect of the right breast with postoperative scarring. Surgical clips are seen in the right axilla. a.No other significant abnormalities are identified. There has been no significant change since the prior study. BI/SCRN MAMM (CAD)W/SARWAT BILAT IMPRESSION: Stable bilateral screening mammogram. Yearly follow-up mammogram recommended. (A) ASSESSMENT CATEGORY: BIRADS Category 2: Benign. A letter regarding these results will be sent to the patient by the facility within 30 days. Approximately 10% of breast cancers are not detected by mammography. A normal mammogram should not delay biopsy of a clinically suspicious abnormality. [id number] Electronically Signed: Rex Glez MD at 10:16 EDT ,
== END | disposition home or self-care (01) ==
LOC: OPBI 09:42
PROVIDERS: PCP Family Medicine; Referring Provider Internal Medicine Hematology & Oncology; Visit Provider Internal Medicine Hematology & Oncology
DX: Z12.31 Encounter for screening mammogram for malignant neoplasm of breast (principal); Z85.3 Personal history of malignant neoplasm of breast; Z80.3 Family history of malignant neoplasm of breast
CPT/HCPCS: 77063; 77067

== ENCOUNTER → 2024-03-03 | Outpatient (CLI) | payer MEDICARE, OTHER, SELFPAY ==
[2020-03-22 11:24] VITALS: BMI 24.9
--- NOTE | 2024-03-03 12:50 | CT_ITS ---
STUDY: LOW DOSE CT LUNG CANCER SCREENING REASON FOR EXAM: Female, 63 years old. Former smoker, 20+ pack year history of smoking RADIATION DOSAGE (If Supplied By Facility): CTDIvol = ( 2.01 ) mGy, DLP = ( 67.71 ) mGycm TECHNIQUE: No contrast was administered. Low dose technique was utilized (average mAS-38 and kVp 120). 1.25 mm axial source images with a slice interval of 1.25-mm were reconstructed in lung windows. 2.5 mm axial source images with a slice interval of 2.5-mm were reconstructed in lung windows. 5.0 mm axial source images with a slice interval of 5.0-mm were reconstructed in soft tissue windows. COMPARISON: 02/12/2023 FINDINGS: Lung windows show nonspecific pleural thickening in the apices. Chronic interstitial changes noted in both lung dhaliwal without organized infiltrate effusion or suspicious noncalcified mass or nodule. Nonspecific pleural thickening noted in both hemithoraces. Limited soft tissue windows show normal-appearing thyroid gland. No suspicious adenopathy noted. Peripheral calcifications in the thoracic aorta without aneurysm. There are calcified coronary vessels. Limited cuts through the upper abdomen do not show any suspicious abnormality, bony structures show degenerative change. Overall, no significant interval change since the previous study CT/Low Dose CT Lung Screening IMPRESSION: Lung-RADS category 2 - Continue annual screening with LDCT in 12 months. IMPORTANT NOTES FOR USE: ACR Lung-RADS Version 1.1 Assessment Categories Release Date: 2018 Category: Coded 0-4 bases on nodule(s) with highest degree of suspicion. Negative screen is defined as categories 1 and 2; a positive screen is defined as categories 3 and 4. Category 3 and 4A nodules that are unchanged on interval CT should be coded as category 2, and individuals returned to screening in 12 months. Category 4X: Category 3 or 4 nodules with additional imaging findings that increase the suspicion of lung cancer, such as spiculation, GGN that doubles in size in 1 year, enlarged lymph notes, etc. Category Modifiers: S (significant finding unrelated to lung cancer) Electronically Signed: Pardeep Joseph MD at 13:43 EDT ,
== END | disposition home or self-care (01) ==
PROVIDERS: PCP Family Medicine; Referring Provider Nurse Practitioner Family; Visit Provider Nurse Practitioner Family
DX: Z12.2 Encounter for screening for malignant neoplasm of respiratory organs (principal); Z87.891 Personal history of nicotine dependence
CPT/HCPCS: 71271

== ENCOUNTER → 2024-09-23 | Outpatient (CLI) | payer MEDICARE, OTHER, SELFPAY ==
[2020-03-22 11:24] VITALS: BMI 24.9
--- NOTE | 2024-09-23 16:12 | BD_ITS ---
PROCEDURE: DEXA BONE DENSITY STUDY REASON FOR EXAM: F, age 64 y/o . Postmenopausal. TECHNIQUE: DEXA scan of the lumbar spine and both hips. COMPARISON: Comparison is made with prior study dated August 21, 2022. FINDINGS: Lumbar Spine (L1-L4): g/cm2 (0.834)/T-score (-1.3)/Z-score (0.4) findings are suggestive of osteopenia with a low fracture risk. Left Femur Total: g/cm2 (0.720)/T-score (-1.8)/Z-score (-0.5) Left Femoral Neck: g/cm2 (0.597)/T-score (-2.3)/Z-score (-0.7) Right Femur Total: g/cm2 (0.691)/T-score (-2.1)/Z-score (-0.8) Right Femoral Neck: g/cm2 (0 0.595)/T-score (-2.3)/Z-score (-0 points) The T-Scores on the most recent prior examination were: Lumbar Spine (L1-L4): There has been improvement of bone density since the previous examination. Left Femur Total: Loss of 2.4%. Right Femur Total: Loss of 2%. BD/Dexa Bone Density Study IMPRESSION: The patient is considered osteopenic as outlined below according to World Mike Organization (WHO) criteria with a high fracture risk. There has been worsening of bone density since the previous examination. Reading Location: [facility]
== END | disposition home or self-care (01) ==
LOC: OPBD 16:08
PROVIDERS: PCP Family Medicine; Referring Provider Internal Medicine Hematology & Oncology; Visit Provider Internal Medicine Hematology & Oncology
DX: Z13.820 Encounter for screening for osteoporosis (principal); C50.411 Malignant neoplasm of upper-outer quadrant of right female breast; M85.80 Other specified disorders of bone density and structure, unspecified site; Z78.0 Asymptomatic menopausal state; Z17.0 Estrogen receptor positive status [ER+]
CPT/HCPCS: 77080

== ENCOUNTER → 2025-01-07 | Outpatient (CLI) | payer MEDICARE, OTHER, SELFPAY ==
[2020-03-22 11:24] VITALS: BMI 24.9
--- NOTE | 2025-01-07 12:43 | US_ITS ---
PROCEDURE: KIDNEY AND BLADDER 01/07/2025 REASON FOR EXAM: RENAL CALCIFICATION TECHNIQUE: KIDNEY AND BLADDER COMPARISON: None FINDINGS: Right kidney measures 10.9 x 4.9 x 5.1 cm. Cortex measures 1.2 cm. Upper pole stone measuring 5 x 5.3 mm, midpole stone measuring 4 x 4 x 3 mm and inferior pole stone 4 x 4 x 3 mm are noted. Slightly prominent renal pelvis measuring 1.5 cm. Left kidney measures 10.3 x 5.6 x 5.2 cm. Cortex measures 1.2 cm. Inferior pole cyst measuring 2.4 x 2.2 x 2.3 cm is noted. Inferior pole stone measuring 4 x 4 x 4 mm and midpole stone measuring 6 x 5 x 3 mm are noted. No hydronephrosis. Urinary bladder volume is 442 cc. Wall measures 2.6 mm. Wall is unremarkable. Jets are not visualized. US/Kidney and Bladder IMPRESSION: Bilateral renal stones. Left renal cysts. Slightly prominent right renal pelvis. Further CT is advised if clinically warranted Reading Location: [id number]
== END | disposition home or self-care (01) ==
LOC: US 12:41
PROVIDERS: PCP Family Medicine; Referring Provider Family Medicine; Visit Provider Family Medicine
DX: N28.89 Other specified disorders of kidney and ureter (principal)
CPT/HCPCS: 76770

== ENCOUNTER → 2025-02-15 | Outpatient (CLI) | payer MEDICARE, OTHER, SELFPAY ==
[2020-03-22 11:24] VITALS: BMI 24.9
--- NOTE | 2025-02-15 09:04 | BI_ITS ---
EXAM: SCRN MAMM (CAD)W/SARWAT BILAT DATE: 02/15/2025 CLINICAL HISTORY: F, Age 64 y/o , ANNUAL SCREENING Personal history of breast cancer. Prior right lumpectomy with radiation treatment. Grandmother with breast cancer. TECHNIQUE: SCRN MAMM (CAD)W/SARWAT BILAT COMPARISON: Prior exam(s) dated February 14, 2024.. FINDINGS: TISSUE DENSITY: The breasts are heterogeneously dense, which may obscure small masses. Bilateral Breast Mammographic Findings: No significant masses, calcifications or other abnormalities are identified. Once again, the patient is status post lumpectomy in the upper lateral aspect of the right breast with postoperative scarring. Surgical clips are seen in the right axilla. BI/SCRN MAMM (CAD)W/SARWAT BILAT IMPRESSION: Stable examination. OVERALL FINAL ASSESSMENT BI-RADS 2: BENIGN RECOMMENDATION: Routine annual follow-up in 1 Year A letter with findings and recommendations will be mailed to the patient. Reading Location: [facility]
== END | disposition home or self-care (01) ==
LOC: OPBI 09:03
PROVIDERS: PCP Family Medicine; Referring Provider Internal Medicine Hematology & Oncology; Visit Provider Internal Medicine Hematology & Oncology
DX: Z12.31 Encounter for screening mammogram for malignant neoplasm of breast (principal)
CPT/HCPCS: 77063; 77067

== ENCOUNTER → 2025-03-11 | Outpatient (CLI) | payer MEDICARE, OTHER, SELFPAY ==
[2020-03-22 11:24] VITALS: BMI 24.9
--- NOTE | 2025-03-11 16:30 | CT_ITS ---
PROCEDURE: LOW DOSE CT LUNG SCREENING 03/11/2025 REASON FOR EXAM: LUNG CANCER SCREENING Former smoker. Patient has smoked for 48 years. TECHNIQUE: LOW DOSE CT LUNG SCREENING Coronal and Sagittal reconstruction series were provided. One or more dose reduction techniques were used (e.g., Automated exposure control, adjustment of the mA and/or kV according to patient size, use of iterative reconstruction technique). REFERENCE LINK: [employer] Lung-RADS RADIATION DOSE SUMMARY: CTDlvol: 2.01 mGy DLP: 63.94 mGycm COMPARISON: Prior study dated March 03, 2024. FINDINGS: PULMONARY NODULES: (Only nodules >3mm are reported) Nodules described below are on series 1 unless otherwise specified. Pulmonary Nodules: No suspicious pulmonary nodules seen. Hardware:None Lymph Nodes:None Heart and Vasculature:The heart is nonenlarged.Atherosclerotic calcifications of the thoracic aorta. Thoracic aorta and pulmonary arteries have normal contours; noncontrast technique limits evaluation. Coronary Artery Calcifications: Present Lungs and Airways: Stable scarring at the lung apices. Pleura:No pleural effusion. Upper Abdomen:Unremarkable Bones:Degenerative changes of the thoracic spine. CT/Low Dose CT Lung Screening IMPRESSION: No suspicious pulmonary nodules. Coronary artery calcification (CAC) is is present Lung-RADS Category: 2 BENIGN (BASED ON IMAGING FEATURES OR INDOLENT BEHAVIOR). RECOMMEND 12-MONTH SCREENING LDCT. Other Significant Findings: Reading Location: [id number]
== END | disposition home or self-care (01) ==
LOC: CT 16:30
PROVIDERS: PCP Family Medicine; Referring Provider Nurse Practitioner Family; Visit Provider Nurse Practitioner Family
DX: Z12.2 Encounter for screening for malignant neoplasm of respiratory organs (principal); Z87.891 Personal history of nicotine dependence
CPT/HCPCS: 71271

== ENCOUNTER 2025-06-11 06:57 | Day surgery (SDC) | payer MEDICARE, OTHER, SELFPAY ==
[2020-03-22 11:24] VITALS: BMI 24.9
[2025-06-11] VITALS (9 sets, daily range): BP systolic 68–134; BP diastolic 50–91; PULSE 60–70; RESP 16–18; TEMP 36.1–36.8; O2SAT 93–100; BMI 26.1
--- OUTSIDE RECORDS SUMMARY | 2025-06-11 07:00 | XMS RPT_ITS | CCD ---
Author Organization [facility] Team Providers Care Apprentice Architect Name Role Phone NOEMI SALVADOR Attending Unavailable FORTUNATO ZHU Referring Unavailable [place] PA, PA-C Alejandra Primary Care Provider [phone] [place] PA, PA-C Alejandra Referring Provider [phone] Tae PLAYGROUND DIRECTOR, PLAYGROUND DIRECTOR-C Lynsey Attending Provider [phone] Dr. Tacos Merino Attending Provider Tae PLAYGROUND DIRECTOR, PLAYGROUND DIRECTOR-C Lynsey Referring Provider Dr. Fortunato Zhu Attending Provider [place] PA-C, Alejandra Primary Care Provider [place] PA, PA-C Alejandra Primary Care Provider [phone] Dr. Tacos Merino Attending Provider Tae PLAYGROUND DIRECTOR, PLAYGROUND DIRECTOR-C Lynsey Attending Provider Dr. Fortunato Zhu Referring Provider [place] PA-C, Alejandra Primary Care Provider [place] PA-C, Alejandra Primary Care Provider [place] PA-C, Alejandra Referring Provider [phone] Dr. Fortunato Zhu MD Attending Provider Dr. Gabriel Jansen MD Referring Provider Dr. Tacos Merino DO Attending Provider Dr. Fortunato Zhu MD Referring Provider [place] PA-C, Alejandra Primary Care Provider [place] PA-C, Alejandra Referring Provider Dr. Fortunato Zhu MD Attending Provider [place] PA-C, Alejandra Attending Provider RALPH, ALEJANDRA Primary Care Unavailable RALPH, ALEJANDRA Admitting Unavailable HILLS, ALEJANDRA Attending Unavailable HILLS, ALEJANDRA Consulting Unavailable PROVIDER, UNKNOWN Consulting Unavailable RALPH, ALEJANDRA Primary Care Unavailable RALPH, ALEJANDRA Admitting Unavailable HILLS, ALEJANDRA Attending Unavailable HILLS, ALEJANDRA Consulting Unavailable PROVIDER, UNKNOWN Consulting Unavailable [place] PA-C, Alejandra Primary Care Provider [place] PA-C, Alejandra Referring Provider Dr. Fortunato Zhu MD Attending Provider Dr. Fortunato Zhu MD Referring Provider Tae PLAYGROUND DIRECTOR-C, Lynsey Attending Provider Dr. Gabriel Jansen MD Referring Provider Tae PLAYGROUND DIRECTOR-C, Lynsey Referring Provider SUZANNE MERIDA Attending Unavailable RALPH, ALEJANDRA Primary Care Unavailable CIPRIANO GALINDO Referring Unavailable CIPRIANO GALINDO Attending Unavailable RALPH, ALEJANDRA Primary Care Unavailable CIPRIANO GALINDO Attending Unavailable RALPH, ALEJANDRA Primary Care Unavailable [place] PA, Alejandra Referring Unavailable [place] PA, Alejandra Primary Care Unavailable Lynsey Strong NP Attending Unavailable [place] PA, Alejandra Primary Care Unavailable Fortunato Zhu Attending Unavailable [place] PA, Alejandra Referring Unavailable [place] PA, Alejandra Referring Unavailable [place] PA, Alejandra Primary Care Unavailable Tacos Merino Attending Unavailable Gabriel Jansen Referring Unavailable [place] PA, Alejandra Primary Care Unavailable Fortunato Zhu Attending Unavailable Fortunato Zhu Attending Unavailable Fortunato Zhu Referring Unavailable [place] PA, Alejandra Primary Care Unavailable [place] PA, Alejandra Attending Unavailable [place] PA, Alejandra Referring Unavailable [place] PA, Alejandra Primary Care Unavailable Fortunato Zhu Referring Unavailable [place] PA, Alejandra Primary Care Unavailable Fortunato Zhu Attending Unavailable Alejandra [place] Primary Care Unavailable Gabriel Jansen Attending Unavailable [place] Alejandra LAVARADO Primary Care Unavailable Lynsey Strong NP Attending Unavailable Lynsey Strong NP Referring Unavailable Medications Current Medications Medication Drug Class(es) Dates Sig (Normalized) Sig (Original) anastrozole 1 mg oral tablet (20 sources) Aromatase Inhibitor Start: 03-22-2020 End: 10-13-2024 take 1 tablet by mouth once daily anastrozole (ARIMIDEX) 1 mg tablet Take 1 (one) tablet (1 mg total) by mouth daily . 12/19/2022 Active calcium carbonate 1250 mg oral tablet (8 sources) Start: 02-17-2020 take 1 tablet by mouth once daily Calcium Carbonate 500 mg calcium (1,250 mg) tablet Active 1250 mg PO DAILY February 17, 2020 12:00am calcium carbonate 1250 mg / cholecalciferol 200 unt oral tablet (7 sources) Vitamin D Start: 09-28-2008 take 1 tablet by mouth once calcium-vitamin D (OS-SIGRID +D) 500 mg-5 mcg (200 unit) per tablet Take 1 (one) tablet by mouth . 09/28/2008 Active cholecalciferol 0.125 mg oral capsule (15 sources) Vitamin D Start: 12-03-2018 take 1 capsule by mouth once daily Cholecalciferol (Vitamin D3) 5,000 UNIT capsule Active 5000 U PO DAILY December 03, 2018 12:00am take 5 tablets by mouth once sybil ly cholecalciferol, vitamin D3, 1,000 unit tablet Take 5 (five) tablets (5,000 Units total) by mouth daily . Active 1 ml denosumab 60 mg/ml prefilled syringe (14 sources) RANK Ligand Inhibitor Start: 05-04-2021 End: 04-19-2025 denosumab (PROLIA) 60 mg/mL Syrg 60 (sixty) mg . 05/04/2021 04/19/2025 Discontinued (Patient Discharge) FLUoxetine 20 mg oral capsule (20 sources) Serotonin Reuptake Inhibitor Start: 12-07-2020 take 2 capsules by mouth once daily Fluoxetine 20 mg capsule Active 40 mg PO DAILY December 07, 2020 10:24am Start: 12-07-2020 take 40 mg by mouth once daily Fluoxetine Active 40 MG PO DAILY December 07, 2020 10:24am Start: 12-03-2018 End: 12-07-2020 take 1 capsule by mouth once daily Fluoxetine 20 MG capsule Discontinued 20 mg PO DAILY December 03, 2018 12:00am December 07, 2020 10:25am ibuprofen 200 mg oral tablet (8 sources) Nonsteroidal Anti-inflammatory Drug Start: 12-05-2018 take 1 tablet by mouth every six hours as needed for pain Ibuprofen 200 MG tablet Active 200 mg PO EVERY 6 HOURS NEEDED as needed for Mod-Severe Pain (4-10/10) 0 December 05, 2018 12:00am ketorolac tromethamine 5 mg/ml ophthalmic solution (3 sources) Nonsteroidal Anti-inflammatory Drug, Cyclooxygenase Inhibitor Start: 11-16-2022 End: 02-10-2024 take 1 drop(s) into the eye(s) four times daily ketorolac (ACULAR) 0.5 % ophthalmic solution INSTILL ONE DROP into surgical eye FOUR TIMES DAILY, STARTING DAY of surgery immediatley following surgery. 11/16/2022 02/10/2024 Discontinued (Patient Discharge) 24 hr metoprolol succinate 50 mg extended release oral tablet (16 sources) beta-Adrenergic Lizeth Start: 04-13-2025 take 1 tablet by mouth once daily metoprolol succinate (TOPROL-XL) 50 MG 24 hr tablet Take 1 (one) tablet (50 mg total) by mouth daily . 04/13/2025 Active Start: 12-03-2018 take 1 tablet by timo th once daily Metoprolol Succinate 50 MG tablet extended release 24 hr Active 50 mg PO DAILY December 03, 2018 12:00am take 1 tablet by timo th twice daily metoprolol tartrate (LOPRESSOR) 50 MG tablet Take 1 (one) tablet (50 mg total) by mouth 2 (two) times a day . Active ofloxacin 3 mg/ml ophthalmic solution (3 sources) Quinolone Antimicrobial Start: 11-16-2022 End: 02-10-2024 take 1 drop(s) into the eye(s) four times daily ofloxacin (OCUFLOX) 0.3 % ophthalmic solution INSTILL ONE DROP FOUR TIMES DAILY into surgical eye STARTING TWO DAYS prior TO surgery 11/16/2022 02/10/2024 Discontinued (Patient Discharge) omeprazole 20 mg delayed release oral capsule (15 sources) Proton Pump Inhibitor Start: 02-03-2020 omeprazole (PRILOSEC) 20 MG capsule Take 1 (one) capsule (20 mg total) by mouth . 02/03/2020 Active rosuvastatin calcium 5 mg oral tablet (15 sources) HMG-CoA Reductase Inhibitor Start: 09-14-2020 rosuvastatin (CRESTOR) 5 MG tablet Take 1 (one) tablet (5 mg total) by mouth . 09/14/2020 Active valsartan 80 mg oral tablet (14 sources) Angiotensin 2 Receptor Lizeth Start: 12-03-2018 valsartan (DIOVAN) 80 MG tablet Take 1 (one) tablet (80 mg total) by mouth . 12/03/2018 Active Completed/Discontinued Medications Medication Drug Class(es) Dates Sig (Normalized) Sig (Original) alendronic acid 70 mg oral tablet (8 sources) Bisphosphonate Start: 12-03-2018 End: 06-07-2021 take 1 tablet by mouth every week Alendronate 70 MG tablet Discontinued 70 mg PO EVERY WEEK December 03, 2018 12:00am June 07, 2021 12:11pm ascorbic acid 1500 mg extended release oral tablet (8 sources) Vitamin C Start: 02-03-2020 End: 02-17-2020 Ascorbic Acid (Vitamin C) 1,500 mg tablet extended release Discontinued 1200 mg PO DAILY February 03, 2020 12:00am February 17, 2020 9:24am Start: 02-03-2020 End: 02-17-2020 take 1200 mg by mouth once daily Ascorbic Acid (Vitamin C) Discontinued 1200 MG PO DAILY February 03, 2020 12:00am February 17, 2020 9:24am benzonatate 100 mg oral capsule (7 sources) Non-narcotic Antitussive Start: 04-15-2022 End: 09-16-2023 take 1 capsule by mouth three times daily Benzonatate 100 mg capsule Discontinued 100 mg PO THREE TIMES A DAY 20 0 April 15, 2022 12:00am September 16, 2023 12:34pm traMADol hydrochloride 50 mg oral tablet (8 sources) Opioid Agonist Start: 02-18-2020 End: 02-23-2020 take 50-100 mg by mouth every four hours as needed for pain Tramadol 50 MG tablet Discontinued 50 - 100 mg PO EVERY 4 HOURS NEEDED as needed for Pain Score 4-5/10 30 5 0 February 18, 2020 12:00am February 22, 2020 12:00am February 23, 2020 12:02am History of breast biopsy Other specified postprocedural states triamcinolone acetonide 0.25 mg/ml topical cream (8 sources) Corticosteroid Start: 09-16-2020 End: 03-14-2022 Triamcinolone Acetonide 1 APPLIC cream Discontinued 1 NMA TP DAILY September 16, 2020 1:00am March 14, 2022 11:24am Problems Active Problems Problem Classification Problem Date Documented Date Episodic/Chronic Administrative/social admission (20 sources) Patient encounter status; Translations: [Counseling, unspecified] Episodic Anxiety disorders (8 sources) Anxiety; Translations: [Anxiety disorder, unspecified] 02-18-2020 Chronic Cancer of breast (20 sources) Malignant tumor of breast ; Translations: [Malignant neoplasm of unspecified site of right female breast] Onset: 5 Chronic Complication of device; implant or graft (1 source) Complication associated with nervous system implant; Translations: [Unspecified complication of internal prosthetic device, implant and graft, initial encounter] 12-25-2022 Episodic Disorders of lipid metabolism (3 sources) Mixed hyperlipidemia; Translations: [Mixed hyperlipidemia] Onset: 5 Chronic Disorders of teeth and jaw (1 source) Pain of right temporomandibular joint; Translations: [Arthralgia of right temporomandibular joint] 06-25-2023 Episodic Diverticulosis and diverticulitis (8 sources) Diverticular disease; Translations: [Diverticulosis of intestine, part unspecified, without perforation or abscess without bleeding] 09-14-2020 Chronic Esophageal disorders (8 sources) Gastroesophageal reflux disease; Translations: [Gastro-esophageal reflux disease without esophagitis] 02-18-2020 Chronic Essential hypertension (8 sources) Hypertensive disorder; Translations: [Essential (primary) hypertension] 02-18-2020 Chronic Headache; including migraine (7 sources) Headache; Translations: [Headache] 04-23-2022 Episodic Other aftercare (1 source) Other mcc (current) drug therapy; Translations: [Other mcc (current) drug therapy] Onset: 5 Episodic Other bone disease and musculoskeletal deformities (8 sources) Pain of left shoulder blade; Translations: [Other specified disorders of bone, shoulder] 09-13-2021 Episodic Other bone disease and musculoskeletal deformities (13 sources) Osteopenia; Translations: [Other specified disorders of bone density and structure, unspecified site] 09-14-2020 Episodic Other bone disease and musculoskeletal deformities (3 sources) Other specified disorders of bone density and structure, unspecified site; Translations: [Disorder of bone and cartilage, unspecified] Onset: 5 Episodic Other diseases of kidney and ureters (1 source) Other specified disorders of kidney and ureter; Translations: [Other specified disorders of kidney and ureter] Onset: 5 Chronic Other ear and sense organ disorders (8 sources) Mixed conductive and sensorineural hearing loss, unilateral, right ear, with unrestricted hearing on the contralateral side; Translations: [Mixed conductive and sensorineural hearing loss of right ear with unrestricted hearin] 02-18-2020 Chronic Other ear and sense organ disorders (13 sources) Mixed conductive AND sensorineural hearing loss; Translations: [Mixed conductive and sensorineural hearing loss, unilateral, right ear with restricted hearing on the contralateral side] Onset: 2 Chronic Other ear and sense organ disorders (10 sources) Sensorineural hearing loss, bilateral; Translations: [Sensorineural hearing loss, bilateral] Onset: 2 Chronic Other ear and sense organ disorders (2 sources) Asymmetrical sensorineural hearing loss; Translations: [Sensorineural hearing loss, bilateral] 10-06-2024 Chronic Other ear and sense organ disorders (1 source) Sensorineural hearing loss, bilateral; Translations: [Sensorineural hearing loss, bilateral] Onset: 5 Chronic Other ear and sense organ disorders (2 sources) Mixed conductive and sensorineural hearing loss, unilateral, right ear with restricted hearing on the contralateral side; Translations: [Mixed conductive and sensorineural hearing loss, unilateral, right ear with restricted hearing on the contralateral side] Onset: 2 Chronic Other ear and sense organ disorders (8 sources) Abnormal auditory perception; Translations: [Other abnormal auditory perceptions, unspecified ear] 02-18-2020 Episodic Other ear and sense organ disorders (1 source) Referred otalgia of right ear; Translations: [Otalgia, right ear] 06-25-2023 Episodic Other ear and sense organ disorders (1 source) Impaired auditory discrimination; Translations: [Other abnormal auditory perceptions, bilateral] 10-06-2024 Episodic Other screening for suspected conditions (not mental disorders or infectious disease) (20 sources) Ultrasonography of breast abnormal; Translations: [Other abnormal and inconclusive findings on diagnostic imaging of breast] Onset: 5 Episodic Comment on above: Right Residual codes; unclassified (8 sources) Past history of procedure; Translations: [Other specified postprocedural states] 02-18-2020 Episodic Comment on above: Right breast- 0 Residual codes; unclassified (2 sources) Estrogen receptor positive status [ER+]; Translations: [Estrogen receptor positive status [ER+]] Onset: 5 Episodic Viral infection (7 sources) Viral disease; Translations: [Viral infection, unspecified] 04-23-2022 Episodic Past or Other Problems Problem Classification Problem Date Documented Date Episodic/Chronic Otitis media and related conditions (15 sources) Recurrent cholesteatoma of mastoid cavity; Translations: [Recurrent cholesteatoma of postmastoidectomy cavity, right ear] Onset: 06-28-2022 Episodic Residual codes; unclassified (1 source) Asymptomatic menopausal state; Translations: [Asymptomatic menopausal state] Onset: 09-09-2024 Episodic Screening and history of mental health and substance abuse codes (12 sources) Tobacco use and exposure - finding; Translations: [Personal history of nicotine dependence] Onset: 02-25-2025 Episodic Results Test Name Value Interpretation Reference Range Facility Basic Metabolic Profile (BMP )on 05-19-2025 BUN Normal - [facility] Comment on above: Result Comment: NO S PECIMEN COLLECTED Performed By: #### L 500.2500 #### [facility] [address] [place], [address] BUN/CRE Normal - [facility] Comment on above: Result Comment: NO S PECIMEN COLLECTED Performed By: #### L 500.2500 #### [facility] [address] [place], [address] Calcium Normal 7.6-11.0 [facility] Comment on above: Result Comment: NO S PECIMEN COLLECTED Performed By: #### L 500.2500 #### [facility] [address] [place], [address] CL Normal 98-108 [facility] Comment on above: Result Comment: NO S PECIMEN COLLECTED Performed By: #### L 500.2500 #### [facility] [address] [place], [address] CO2 Normal 21.0-32.0 [facility] Comment on above: Result Comment: NO S PECIMEN COLLECTED Performed By: #### L 500.2500 #### [facility] [address] [place], [address] CREAT,SERUM Normal 0.70-1.20 [facility] Comment on above: Result Comment: NO S PECIMEN COLLECTED Performed By: #### L 500.2500 #### [facility] [address] [place], [address] eGFR Normal >60 [facility] Comment on above: Result Comment: NO S PECIMEN COLLECTED Performed By: #### L 500.2500 #### [facility] [address] [place], [address] GAP Normal 5-15 [facility] Comment on above: Result Comment: NO S PECIMEN COLLECTED Performed By: #### L 500.2500 #### [facility] [address] [place], [address] GLU Normal 70-99 [facility] Comment on above: Result Comment: NO S PECIMEN COLLECTED Performed By: #### L 500.2500 #### [facility] [address] [place], [address] Potassium Normal 3.3-5.1 [facility] Comment on above: Result Comment: NO S PECIMEN COLLECTED Performed By: #### L 500.2500 #### [facility] [address] [place], [address] Basic Metabolic Profile (BMP) Normal 133-145 [facility] Comment on above: Result Comment: NO S PECIMEN COLLECTED Performed By: #### L 500.2500 #### [facility] [address] [place], [place], [address] Low Dose CT Lung Screeningon 03-11-[address] Lung Screening [facility] [address] [place] [address] Lung Screening MR#: [id number] Acct: [id number] Name: DAV WARE Rep #: [id number] : [id number] F 64 From: Rex graves MD PCP: Alejandra Godwin PA-C Status: REG CLI Study: Low Dose CT Lung Screening Date of Exam: 03/11 Exam# [id number] Ordering Dr: Lynsey Strong NP PLAYGROUND DIRECTOR -C PROCEDURE: LOW DOSE CT LUNG SCREENING 03/11/2025 REASON FOR EXAM: LUNG CANCER SCREENING Former smoker. Patient has smoked for 48 years. TECHNIQUE: LOW DOSE CT LUNG SCREENING Coronal and Sagittal reconstruction series were provided. One or more dose reduction techniques were used (e.g., Automated exposure control, adjustment of the mA and/or kV according to patient size, use of iterative reconstruction technique). REFERENCE LINK: [employer] Lung-RADS RADIATION DOSE SUMMARY: CTDlvol: 2.01 mGy DLP: 63.94 mGycm COMPARISON: Prior study dated March 03, 2024. FINDINGS: PULMONARY NODULES: (Only nodules >3mm are reported) Nodules described below are on series 1 unless otherwise specified. Pulmonary Nodules: No suspicious pulmonary nodules seen. Hardware:None Lymph Nodes:None Heart and Vasculature:The heart is nonenlarged.Atheroscler otic calcifications of the thoracic aorta. Thoracic aorta and pulmonary arteries have normal contours; noncontrast technique limits evaluation. Coronary Artery Calcifications: Present Lungs and Airways: Stable scarring at the lung apices. Pleura:No pleural effusion. Upper Abdomen:Unremarkable Bones:Degenerative changes of the thoracic spine. CT/Low Dose CT Lung Screening IMPRESSION: No suspicious pulmonary nodules. Coronary artery calcification (CAC) is is present Lung-RADS Category: 2 BENIGN (BASED ON IMAGING FEATURES OR INDOLENT BEHAVIOR). RECOMMEND 12-MONTH SCREENING LDCT. Other Significant Findings: Reading Location: [id number] CC: DEVIN Strong; RUSSEL Godwin Type Inspector: Signed Normal [facility] Absolute lymphocyte countOrd ered By: [facility] on 02-25-2025 Lymphocytes Auto (Unsp spec) [#/Vol] 2.19 10*3/uL 0.83-4.51 [facility] Absolute neutrophil countOrd ered By: Fortunato Zhu on 02-25-2025 Neutrophils (Bld) [#/Vol] 3.8 10*3/uL 2.0-7.7 [facility] Anion gap in Serum or Plasma Ordered By: [facility] on 02-25-2025 Anion gap [Moles/Vol] 10 mmol/L 5- [facility] Automated lymphocyte count a s percentage of total leukocytesOrdered By: [facility] on 02-25-2025 Lymphocytes/100 WBC Auto (Unsp spec) 33.1 % 19-41 [facility] BUN/creatinine ratioOrdered By: [facility] on 02-25-2025 Urea nitrogen/Creatinine [Mass ratio] 21.0 mg/mg High 10- [facility] Basic Metabolic Profile (BMP )on 02-25-2025 BUN Normal 4-19 [facility] Comment on above: Result Comment: DUPL ICATE-CMP ORDERED Performed By: #### L 500.2500 #### [facility] [address] [place], [address] BUN/CRE Normal 10- [facility] Comment on above: Result Comment: DUPL ICATE-CMP ORDERED Performed By: #### L 500.2500 #### [facility] [address] [place], [address] Calcium Normal 7.6-11.0 [facility] Comment on above: Result Comment: DUPL ICATE-CMP ORDERED Performed By: #### L 500.2500 #### [facility] [address] [place], [address] CL Normal 98-108 [facility] Comment on above: Result Comment: DUPL ICATE-CMP ORDERED Performed By: #### L 500.2500 #### [facility] [address] [place], [address] CO2 Normal 21.0-32.0 [facility] Comment on above: Result Comment: DUPL ICATE-CMP ORDERED Performed By: #### L 500.2500 #### [facility] [address] [place], [address] CREAT,SERUM Normal 0.70-1.20 [facility] Comment on above: Result Comment: DUPL ICATE-CMP ORDERED Performed By: #### L 500.2500 #### [facility] [address] [place], [address] eGFR Normal >60 [facility] Comment on above: Result Comment: DUPL ICATE-CMP ORDERED Performed By: #### L 500.2500 #### [facility] [address] [place], [address] GAP Normal 5-15 [facility] Comment on above: Result Comment: DUPL ICATE-CMP ORDERED Performed By: #### L 500.2500 #### [facility] [address] [place], [address] GLU Normal 70-99 [facility] Comment on above: Result Comment: DUPL ICATE-CMP ORDERED Performed By: #### L 500.2500 #### [facility] [address] [place], [address] Potassium Normal 3.3-5.1 [facility] Comment on above: Result Comment: DUPL ICATE-CMP ORDERED Performed By: #### L 500.2500 #### [facility] [address] [place], [address] Basic Metabolic Profile (BMP) Normal 133-145 [facility] Comment on above: Result Comment: DUPL ICATE-CMP ORDERED Performed By: #### L 500.2500 #### [facility] [address] [place], [address] Basophil percentageOrdered B y: Fortunato Phillipniki on 02-25-2025 Basophils/100 WBC (Bld) 0.9 % 0-1 [facility] Bilirubin, totalOrdered By: Fortunato Zhu on 02-25-2025 Bilirubin [Mass/Vol] 0.29 mg/dL 0.00-1.30 [facility] CBC W/Diff, Automatedon Absolute Lymph 2.19 X10 3/uL Normal 0.83-4.51 [facility] Comment on above: Performed By: #### L 100.0100, L500.4050 #### [facility] [address] [place], [address] Absolute Neut 3.8 X10 3/uL Normal 2.0-7.7 [facility] Comment on above: Performed By: #### L 100.0100, L500.4050 #### [facility] [address] [place], [address] Basophils/100 WBC (Bld) 0.9 % Normal 0-1 [facility] Comment on above: Performed By: #### L 100.0100, L500.4050 #### [facility] [address] [place], [address] Eosinophils/100 WBC (Bld) 1.7 % Normal 0-5 [facility] Comment on above: Performed By: #### L 100.0100, L500.4050 #### [facility] [address] [place], [address] Erythrocyte distribution width (RBC) [Ratio] 14.3 % Normal 11.6-14.6 [facility] Comment on above: Performed By: #### L 100.0100, L500.4050 #### [facility] [address] [place], [address] Hematocrit (Bld) [Volume fraction] 41.2 % Normal 37-47 [facility] Comment on above: Performed By: #### L 100.0100, L500.4050 #### [facility] [address] [place], [address] Hemoglobin (Bld) [Mass/Vol] 13.5 g/dL Normal 12.0-15.0 [facility] Comment on above: Performed By: #### L 100.0100, L500.4050 #### [facility] [address] [place], [address] IG% 0.300 Normal 0.0-0.9 [facility] Comment on above: Result Comment: IG% - Immature Granulocytes (promyelocytes, myelocytes and metamyelocytes) > 1% indicates that a LEFT SHIFT is Present. Performed By: #### L 100.0100, L500.4050 #### [facility] [address] [place], [address] Lymphocytes/100 WBC (Bld) 33.1 % Normal 19-41 [facility] Comment on above: Performed By: #### L 100.0100, L500.4050 #### [facility] [address] [place], [address] MCH (RBC) [Entitic mass] 30.2 pg Normal 27.0-32.0 [facility] Comment on above: Performed By: #### L 100.0100, L500.4050 #### [facility] [address] [place], [address] MCHC (RBC) [Mass/Vol] 32.8 g/dL Normal 32-36 [facility] Comment on above: Performed By: #### L 100.0100, L500.4050 #### [facility] [address] [place], [address] MCV (RBC) [Entitic vol] 92.2 fL Normal 81-99 [facility] Comment on above: Performed By: #### L 100.0100, L500.4050 #### [facility] [address] [place], [address] Monocytes/100 WBC (Bld) 6.3 % Normal 0-10 [facility] Comment on above: Performed By: #### L 100.0100, L500.4050 #### [facility] [address] [place], [address] Neutrophils/100 WBC (Bld) 57.7 % Normal 47-70 [facility] Comment on above: Performed By: #### L 100.0100, L500.4050 #### [facility] [address] [place], [address] Nucleated RBC (Bld) [#/Vol] 0 10*3/uL Normal 0-5 [facility] Comment on above: Performed By: #### L 100.0100, L500.4050 #### [facility] [address] [place], [address] Platelet mean volume (Bld) [Entitic vol] 9.8 fL Normal 6.2-12.0 [facility] Comment on above: Performed By: #### L 100.0100, L500.4050 #### [facility] [address] [place], [address] Platelets (Bld) [#/Vol] 437 10*3/uL Normal 150-450 [facility] Comment on above: Performed By: #### L 100.0100, L500.4050 #### [facility] [address] [place], [address] RBC (Bld) [#/Vol] 4.47 10*6/uL Normal 4.2-5.4 [facility] Comment on above: Performed By: #### L 100.0100, L500.4050 #### [facility] [address] [place], [address] RDW SD 48.3 fl High 35.1-43.9 [facility] Comment on above: Performed By: #### L 100.0100, L500.4050 #### [facility] [address] [place], [address] WBC (Bld) [#/Vol] 6.6 10*3/uL Normal 4.4-11.0 [facility] Comment on above: Performed By: #### L 100.0100, L500.4050 #### [facility] [address] [place], [address] Carbon dioxide, total [Moles /volume] in Central venous bloodOrdered By: Fortunato Zhu on 02-25-2025 CO2 [Moles/Vol] 25.3 mmol/L 21.0-32.0 [facility] Chloride assayOrdered By: Mikayla Zhu on 02-25-2025 Chloride [Moles/Vol] 103 mmol/L 98-108 [facility] Comprehensive Metabolic Prof ilon 02-25-2025 Albumin [Mass/Vol] 4.3 g/dL Normal 3.4-4.8 [facility] Comment on above: Performed By: #### L 100.0100, L500.4050 ####[facility] [address] [place], [address] Albumin/Globulin [Mass ratio] 1.5 {ratio} Normal 0.9-2.4 [facility] Comment on above: Performed By: #### L 100.0100, L500.4050 ####[facility] [address] [place], [address] ALK PHOS 52 U/L Normal 35-104 [facility] Comment on above: Performed By: #### L 100.0100, L500.4050 ####[facility] [address] [place], [address] ALT [Catalytic activity/Vol] 13 U/L Normal <=34 [facility] Comment on above: Performed By: #### L 100.0100, L500.4050 ####[facility] [address] [place], [address] AST [Catalytic activity/Vol] 18 U/L Normal <=31 [facility] Comment on above: Performed By: #### L 100.0100, L500.4050 ####[facility] [address] [place], [address] Bilirubin [Mass/Vol] 0.29 mg/dL Normal 0.00-1.30 [facility] Comment on above: Performed By: #### L 100.0100, L500.4050 ####[facility] [address] [place], [address] BUN/CRE 21.0 RATIO High 10-20 [facility] Comment on above: Performed By: #### L 100.0100, L500.4050 ####[facility] [address] [place], [address] Calcium [Mass/Vol] 10.6 mg/dL Normal 7.6-11.0 [facility] Comment on above: Performed By: #### L 100.0100, L500.4050 ####[facility] [address] [place], [address] Chloride [Moles/Vol] 103 mmol/L Normal 98-108 [facility] Comment on above: Performed By: #### L 100.0100, L500.4050 ####[facility] [address] [place], [address] CO2 [Moles/Vol] 25.3 mmol/L Normal 21.0-32.0 [facility] Comment on above: Performed By: #### L 100.0100, L500.4050 ####[facility] [address] [place], [address] Creatinine [Mass/Vol] 0.86 mg/dL Normal 0.70-1.20 [facility] Comment on above: Performed By: #### L 100.0100, L500.4050 ####[facility] [address] [place], [address] ECRCL 61.56 ml/min Normal 50-250 [facility] Comment on above: Performed By: #### L 100.0100, L500.4050 ####[facility] [address] [place], [address] GAP 10 Normal 5-15 [facility] Comment on above: Performed By: #### L 100.0100, L500.4050 ####[facility] [address] [place], [address] GFR/1.73 sq M.predicted among non-blacks MDRD (S/P/Bld) [Vol rate/Area] 75 mL/min/{1.73_m2} Normal >60 [facility] Comment on above: Result Comment: mL/m in/1.73m2 CKD-EPI Creatinine Equation (2020) Performed By: #### L 100.0100, L500.4050 ####[facility] [address] [place], [address] Globulin (S) [Mass/Vol] 2.9 g/dL Normal 2.2-4.2 [facility] Comment on above: Performed By: #### L 100.0100, L500.4050 ####[facility] [address] [place], [address] Glucose [Mass/Vol] 91 mg/dL Normal 70-99 [facility] Comment on above: Performed By: #### L 100.0100, L500.4050 ####[facility] [address] [place], [address] Potassium [Moles/Vol] 4.2 mmol/L Normal 3.3-5.1 [facility] Comment on above: Performed By: #### L 100.0100, L500.4050 ####[facility] [address] [place], [address] Sodium [Moles/Vol] 138 mmol/L Normal 133-145 [facility] Comment on above: Performed By: #### L 100.0100, L500.4050 ####[facility] [address] [place], [address] T PROT 7.2 g/dL Normal 5.9-8.4 [facility] Comment on above: Performed By: #### L 100.0100, L500.4050 ####[facility] [address] [place], [address] Urea nitrogen [Mass/Vol] 18 mg/dL Normal 4-19 [facility] Comment on above: Performed By: #### L 100.0100, L500.4050 ####[facility] [address] [place], [address] Eosinophil percentageOrdered By: Fortunato Zhu on 02-25-2025 Eosinophils/100 WBC (Bld) 1.7 % 0-5 [facility] Erythrocyte distribution wid th ratioOrdered By: Fortunato Zhu on 02-25-2025 Erythrocyte distribution width (RBC) [Ratio] 14.3 % 11.6-14.6 [facility] Erythrocyte distribution wid th standard deviationOrdered By: Fortunato Zhu on 02-25-2025 Erythrocyte distribution width (RBC) [Ratio] 48.3 fl High 35.1-43.9 [facility] Glomerular filtration rate ( GFR) estimation/1.73 sq m using serum, plasma, or whole bOrdered By: Fortunato Zhu on 02-25-2025 GFR/1.73 sq M.predicted among non-blacks MDRD (S/P/Bld) [Vol rate/Area] 75 mL/min/{1.73_m2} >60 [facility] Comment on above: mL/min/1.73m2 CKD-EP I Creatinine Equation (2020) Hematocrit Auto (Bld) [Volum e fraction]Ordered By: Fortunato Zhu on 02-25-2025 Hematocrit (Bld) [Volume fraction] 41.2 % 37-47 [facility] Hemoglobin measurementOrdere d By: Fortunato Zhu on 02-25-2025 Hemoglobin (Bld) [Mass/Vol] 13.5 g/dL 12.0-15.0 [facility] Immature granulocytes/100 WB C Auto (Bld)Ordered By: Fortunato Zhu on 02-25-2025 Immature granulocytes/100 WBC (Bld) 0.300 % 0.0-0.9 [facility] Comment on above: IG% - Immature Granu locytes (promyelocytes, myelocytes and metamyelocytes) > 1% indicates that a LEFT SHIFT is Present. Laboratory - Chemistry and C hemistry - challengeOrdered By: Fortunato Zhu on 02-25-2025 AST [Catalytic activity/Vol] 18 U/L <32 [facility] MCV (mean corpuscular volume ) determinationOrdered By: Fortunato Zhu on 02-25-2025 MCV (RBC) [Entitic vol] 92.2 fL 81-99 [facility] Mean corpuscular hemoglobin (MCH) determinationOrdered By: Fortunato Zhu on 02-25-2025 MCH (RBC) [Entitic mass] 30.2 pg 27.0-32.0 [facility] Mean corpuscular hemoglobin concentration (MCHC) determinationOrdered By: Fortunato Zhu on 02-25-2025 MCHC (RBC) [Mass/Vol] 32.8 g/dL 32-36 [facility] Mean platelet volume determi nationOrdered By: Fortunato Zhu on 02-25-2025 Platelet mean volume (Bld) [Entitic vol] 9.8 fL 6.2-12.0 [facility] Monocyte percentageOrdered B y: Fortunato Zhu on 02-25-2025 Monocytes/100 WBC (Bld) 6.3 % 0-10 [facility] Neutrophil percentageOrdered By: Fortunato Zhu on 02-25-2025 Neutrophils/100 WBC (Bld) 57.7 % 47-70 [facility] Nucleated red blood cell per centageOrdered By: Fortunato Zhu on 02-25-2025 Nucleated RBC/100 WBC (Bld) [Ratio] 0 % 0-5 [facility] Oncology Visit Reporton 08- Oncology Visit Report [facility] [place] [facility] [address] [place] [address] OFFICE VISIT Date of Service: 02/25/25 1322 MR#: [id number] Acct: [id number] Name: DAV WARE Rep #: [id number] : 1960 From: Lynsey Strong NP PLAYGROUND DIRECTOR -C Age/Sex: 64/F Location: [facility] Status: Signed HPI Subjective Date of Service 02/25/25 Chief Complaint Breast cancer on treatment History of Present Illness 64-year-old female who presented after an abnormal screening mammogram. February 03, 2020 Right breast, ultrasound-guided needle core biopsy: Invasive ductal carcinoma, nuclear grade 1-2 (0.9 cm in greatest length). E-Cad (ECH-6) positive CK8 ([id number]) positive Calponin-1 (YO865B) negative CK5-6 (D5 1684) positive P40 (BC28) negative P53 (DO-7) positive, <10% Ki-67 (30-9) positive, low MORPHOMETRIC ANALYSIS ER (clone 6F11) >95%, strong intensity VT (clone 16/1E2) 75%, moderate intensity Her-2Neu (clone CB11) 2+ IN SITU HYBRIDIZATION (ERIN) FOR HER2 Interpretation: Not Amplified / Negative February 18, 2020 right breast partial mastectomy with sentinel lymph node biopsy: FROZEN SECTION DIAGNOSIS A. Right axillary sentinel lymph nodes, biopsy: Two out of two lymph nodes negative for carcinoma. MICROSCOPIC DIAGNOSIS A. Right axillary sentinel lymph nodes, biopsy: One out of two lymph nodes positive for metastatic isolated tumor cells (0.11mm in greatest dimension). See comment. B. Right breast, lumpectomy with needle localization: Invasive ductal carcinoma, two foci. COMMENT A. Immunohistochemistry ([id number]) supports the diagnosis of metastatic isolated tumor cells in one out two lymph nodes.. BREAST CANCER SUMMARY Procedure - excision with wire-guided localization Specimen laterality right Invasive tumor: Tumor site upper outer quadrant Tumor size greatest dimension large invasive focus 1.1 cm, additional dimension 1 x 0.6 cm Histologic type invasive ductal carcinoma, no special type Histologic grade ([place] grade): Glandular/tubular differentiation score - 3 Nuclear pleomorphism score - 2 Mitotic count score - 2 Overall grade grade 2 (score of 7) Tumor focality multiple foci of invasive carcinoma Number of foci - 2 Size of individual foci 1.1 x 1 x 0.6 cm and 0.2 x 0.2 cm (block B12) Ductal Carcinoma In Situ not identified Tumor extension: Skin skin is not present Nipple not applicable Skeletal muscle no skeletal muscle is present. Margins invasive carcinoma 0.3 cm away from the closest inferior margin Regional Lymph Nodes: Total number of lymph nodes examined 2 Number of sentinel lymph nodes examined - 2 Number of lymph nodes with isolated tumor cells 1 Number of lymph nodes with macrometastases and micrometastases - 0 Treatment effect: No known presurgical therapy. Lymphvascular invasion not identified Dermal lymphvascular invasion not applicable Additional Pathologic Findings fibrocystic changes and intraductal hyperplasia without atypia. Focal changes consistent with previous biopsy site. Ancillary Studies: Previously performed on same tumor ([id number] / [id number]) ER: positive (>95%, strong intensity) VT: positive (75%, moderate intensity) Jtr8sjn: equivocal (2+) Her2 by dualISH: HER2:CEP-17 ratio: 0.9 Average HER2 signal: 2.1 Average CEP-17 signal: 2.35 Clinical History - Please make reference to previous specimen ([id number]) right breast tissue, ultrasound-guided core biopsy with diagnosis of invasive ductal carcinoma. Pathologic Stage: pT1c pN0(i+) pMx Oncotype DX score of 14 (low risk) Treatment summary: February 18, 2020 right breast partial mastectomy with sentinel lymph node biopsy. Adjuvant hormonal therapy: Arimidex March 2020. 03/26/2020 - 04/25/2020: received 4256 cGy of 6 MV photons in 16 fractions to the right breast. Interval History The patient is presenting to clinic today accompanied by daughter for routine 6-month follow-up. She denies any concerns r/t today's visit. Reports good adherence to AI. Denies hot flashes, myalgias/arthralgias, fatigue, vaginal dryness. Further denies any palpable breast masses, skin abnormalities, nipple discharge or retraction, headaches, weight loss, cough, shortness of breath, abdominal pain, changes in her bowel habits, dysuria, swelling or pain of her extremities. No jaw pain. Confirms she is taking calcium and vitamin D daily. Has not needed any invasive dental work, aside from routine cleaning. [facility] Medical History Encounter for screening for malignant neoplasm of lung Cataract BCC (basal cell carcinoma), leg Pain of left scapula Encounter for screening for malignant neoplasm of lung in current smoker with 30 pack year history or greater History of tobacco use Malignant neoplasm of lower-outer quadrant of right female breast Acid r (more content not included)... Normal [facility] Platelet countOrdered By: Mikayla Zhu on 02-25-2025 Platelets (Bld) [#/Vol] 437 10*3/uL 150-450 [facility] Potassium measurement (mass/ volume)Ordered By: Fortunato Zhu on 02-25-2025 Potassium (Unsp spec) [Mass/Vol] 4.2 mmol/L 3.3-5.1 [facility] RBC Auto (Bld) [#/Vol]Ordere d By: Fortunato Zhu on 02-25-2025 RBC (Bld) [#/Vol] 4.47 10*6/uL 4.2-5.4 [facility] Serum creatinine measurement (mass/volume)Ordered By: Fortunato Zhu on 02-25-2025 Creatinine [Mass/Vol] 0.86 mg/dL 0.70-1.20 [facility] Serum globulin measurementOr dered By: Fortunato Zhu on 02-25-2025 Globulin (S) [Mass/Vol] 2.9 g/dL 2.2-4.2 [facility] Serum glucose measurement (m ass/volume)Ordered By: Fortunato Zhu on 02-25-2025 Glucose [Mass/Vol] 91 mg/dL 70-99 [facility] Serum or plasma alanine posadas otransferase (ALT) measurementOrdered By: Fortunato Zhu on 02-25-2025 ALT [Catalytic activity/Vol] 13 U/L <35 [facility] Serum or plasma albumin marla urement (mass/volume)Ordered By: Fortunato Zhu on 02-25-2025 Albumin [Mass/Vol] 4.3 g/dL 3.4-4.8 [facility] Serum or plasma albumin/glob ulin mass ratioOrdered By: Fortunato Zhu on 02-25-2025 Albumin/Globulin [Mass ratio] 1.5 {ratio} 0.9-2.4 [facility] Serum or plasma alkaline maurizio sphatase measurementOrdered By: Fortunato Zhu on 02-25-2025 ALP [Catalytic activity/Vol] 52 U/L 35-104 [facility] Serum or plasma calcium marla urement (mass/volume)Ordered By: Fortunato Zhu on 02-25-2025 Calcium [Mass/Vol] 10.6 mg/dL 7.6-11.0 [facility] Serum or plasma urea nitroge n measurement (mass/volume)Ordered By: Fortunato Zhu on 02-25-2025 Urea nitrogen [Mass/Vol] 18 mg/dL 4-19 [facility] Sodium levelOrdered By: Gavin Zuh on 02-25-2025 Sodium [Moles/Vol] 138 mmol/L 133-145 [facility] Total proteinOrdered By: Denny Zhu on 02-25-2025 Protein [Mass/Vol] 7.2 g/dL 5.9-8.4 [facility] White blood cell (WBC) count Ordered By: Fortunato Zhu on 02-25-2025 WBC (Bld) [#/Vol] 6.6 10*3/uL 4.4-11.0 [facility] Breast imaging reportOrdered By: Rex Glez on 02-15-2025 Study report [facility] Imaging Services [address] [place], [place] [id number] SCRN MAMM (CAD)W/SARWAT BILAT MR#: [id number] Acct: [id number] Name: DAV WARE Rep #: [id number] : 1960 F 64 From: Dylan Glez MD PCP: Alejandra Godwin PA-C Status: REG C LI Study:SCRN MAMM (CAD)W/SARWAT BILAT Date of Exa m: 02/15/25 Exam# [id number] Ordering Dr: Fortunato Zhu MD EXAM: SCRN MAMM (CAD)W/SARWAT BILAT DATE: 02/15/2025 CLINICAL HISTORY: F, Age 64 y/o , ANNUAL SCREENING Personal history of breast cancer. Prior right lumpectomy with radiation treatment. Grandmother with breast cancer. TECHNIQUE: SCRN MAMM (CAD)W/SARWAT BILAT COMPARISON: Prior exam(s) dated February 14, 2024.. FINDINGS: TISSUE DENSITY: The breasts are heterogeneously dense, which may obscure small masses. Bilateral Breast Mammographic Findings: No significant masses, calcifications or other abnormalities are identified. Once again, the patient is status post lumpectomy in the upper lateral aspect ofthe right breast with postoperative scarring. Surgical clips are seen in the right axilla. BI/SCRN MAMM (CAD)W/SARWAT BILAT IMPRESSION: Stable examination. OVERALL FINAL ASSESSMENT BI-RADS 2: BENIGN RECOMMENDATION: Routine annual follow-up in 1 Year A letter with findings and recommendations will be mailed to the patient. Reading Location: [id number] CC: RUSSEL Godwin; Dr. Fortunato Zhu MD ~ Type Inspector: Signed [facility] SCRN MAMM (CAD)W/SARWAT BILATo n 02-15-2025 SCRN MAMM (CAD)W/SARWAT BILAT [facility] Imaging Services [address] [place] [address] SCRN MAMM (CAD)W/SARWAT BILAT MR#: [id number] Acct: [id number] Name: DAV WARE Rep #: [id number] : 1960 F 64 From: Rex graves MD PCP: Alejandra Godwin PA-C Status: REG CLI Study: SCRN MAMM (CAD)W/SARWAT BILAT Date of Exam: 01/20 03/15 Exam# [id number] Ordering Dr: Fortunato Zhu MD EXAM: SCRN MAMM (CAD)W/SARWAT BILAT DATE: 02/15/2025 CLINICAL HISTORY: F, Age 64 y/o , ANNUAL SCREENING Personal history of breast cancer. Prior right lumpectomy with radiation treatment. Grandmother with breast cancer. TECHNIQUE: SCRN MAMM (CAD)W/SARWAT BILAT COMPARISON: Prior exam(s) dated February 14, 2024.. FINDINGS: TISSUE DENSITY: The breasts are heterogeneously dense, which may obscure small masses. Bilateral Breast Mammographic Findings: No significant masses, calcifications or other abnormalities are identified. Once again, the patient is status post lumpectomy in the upper lateral aspect of the right breast with postoperative scarring. Surgical clips are seen in the right axilla. BI/SCRN MAMM (CAD)W/SARWAT BILAT IMPRESSION: Stable examination. OVERALL FINAL ASSESSMENT BI-RADS 2: BENIGN RECOMMENDATION: Routine annual follow-up in 1 Year A letter with findings and recommendations will be mailed to the patient. Reading Location: [facility] CC: RUSSEL Godwin; Dr. Fortunato hZu MD Type Inspector: Signed Normal [facility] with eGFRon 01-13-2025 AGE 64 years Normal [facility] Comment on above: Performed By: #### 2 [id number] #### [facility],[address] [place], [place] [address] Albumin [Mass/Vol] 3.6 g/dL Normal 3.4 - 5.0 [facility] Comment on above: Performed By: #### 2 40395 #### [facility],[address] [place], [place] [address] Albumin/Globulin [Mass ratio] 1.0 {ratio} Normal 0.9 - 1.6 [facility] Comment on above: Performed By: #### 2 21591 #### [facility],[address] [place] [address] ALK PHOS 51 U/L Normal 46 - 116 [facility] Comment on above: Performed By: #### 2 56460 #### [facility],[address] [place] [address] ALT [Catalytic activity/Vol] 22 U/L Normal 16 - 63 [facility] Comment on above: Performed By: #### 2 22490 #### [facility],[address] [place] [address]27 Anion gap [Moles/Vol] 11 mmol/L Normal 10 - 20 [facility] Comment on above: Performed By: #### 2 83788 #### [facility],[address] [place] [address] AST [Catalytic activity/Vol] 16 U/L Normal 13 - 39 [facility] Comment on above: Performed By: #### 2 13929 #### [facility],[address] [place] [address] B/C RATIO 17 ratio Normal 0 - 30 [facility] Comment on above: Performed By: #### 2 17918 #### [facility],[address] [place] [address] Bilirubin [Mass/Vol] 0.3 mg/dL Normal 0.2 - 1.0 [facility] Comment on above: Performed By: #### 2 19905 #### [facility],[address] [place] [address] Calcium [Mass/Vol] 8.9 mg/dL Normal 8.5 - 10.1 [facility] Comment on above: Performed By: #### 2 60417 #### [facility],[address] [place] [address] Chloride [Moles/Vol] 104 mmol/L Normal 98 - 107 [facility] Comment on above: Performed By: #### 2 27412 #### [facility],[address] [place] [address] CMP with eGFR Normal [facility] Comment on above: Result Comment: COMP REHENSIVE METABOLIC PANEL Performed By: #### 2 69500 #### [facility],[address] [place] [address] CO2 [Moles/Vol] 29.8 mmol/L Normal 21.0 - 32.0 [facility] Comment on above: Performed By: #### 2 05825 #### [facility],[address] [place] [address] Creatinine [Mass/Vol] 0.72 mg/dL Normal 0.55 - 1.02 [facility] Comment on above: Performed By: #### 2 38866 #### [facility],[address] [place] [address] [address] GFR/1.73 sq M.predicted among non-blacks MDRD (S/P/Bld) [Vol rate/Area] mL/min/{1.73_m2} Normal 60 - 999 [facility] Comment on above: Performed By: #### 2 [id number] #### [facility],[address] [place], [place] [id number] Result Comment: ACCO RDING TO THE NATIONAL KIDNEY DISEASE EDUCATION PROGRAM(NKDE), A NORMAL eGFR IS A VALUE GREATER THAN OR EQUAL TO 60 ML/MIN/1.73 SQ METERS. CHRONIC KIDNEY DISEASE: <60mL/MIN/1.73 SQ METERS KIDNEY FAILURE: <15mL/MIN/1.73 SQ METERS THIS TEST SHOULD ONLY BE USED FOR PATIENTS 18 YEARS OF AGE AND OLDER. Globulin (S) [Mass/Vol] 3.7 g/dL Normal 1.5 - 3.8 [facility] Comment on above: Performed By: #### 2 51874 #### [facility],[address] [place] [address] 98927 Glucose [Mass/Vol] 87 mg/dL Normal 74 - 106 [facility] Comment on above: Performed By: #### 2 36376 #### [facility],[address] [place] [address]65 Potassium [Moles/Vol] 3.7 mmol/L Normal 3.5 - 5.1 [facility] Comment on above: Performed By: #### 2 37404 #### [facility],[address] [place] [address] 36301 Protein [Mass/Vol] 7.3 g/dL Normal 6.4 - 8.2 [facility] Comment on above: Performed By: #### 2 02418 #### [facility],[address] [place] [address] 15024 Sodium [Moles/Vol] 141 mmol/L Normal 136 - 145 [facility] Comment on above: Performed By: #### 2 55247 #### [facility],[address] [place] [address] 14244 Urea nitrogen [Mass/Vol] 12 mg/dL Normal 7 - 18 [facility] Comment on above: Performed By: #### 2 34640 #### [facility],[address] [place] [address]6597 LIPID PROFILEon 01-13-2025 Cholesterol [Mass/Vol] 186 mg/dL Normal 0 - 240 [facility] Comment on above: Performed By: #### 2 42085 #### [facility],[address] [place] [address] 26954 Cholesterol in HDL [Mass/Vol] 60 mg/dL Normal 40 - 60 [facility] Comment on above: Performed By: #### 2 98592 #### [facility],[address] [place] [address] 38918 Cholesterol in LDL [Mass/Vol] 109 mg/dL Normal 0 - 129 [facility] Comment on above: Performed By: #### 2 51577 #### [facility],[address] [place] [address] 97261 Cholesterol.total/Angi sterol in HDL [Mass ratio] 3.1 {ratio} Normal 0.0 - 5.0 [facility] Comment on above: Performed By: #### 2 82426 #### [facility],[address] [place] [address] 88617 Lipid 1996 panel Normal [facility] Comment on above: Result Comment: LIPI D PROFILE Performed By: #### 2 45193 #### [facility],[address] [place] [address] 77490 Triglyceride [Mass/Vol] 85 mg/dL Normal 0 - 150 [facility] Comment on above: Performed By: #### 2 95189 #### [facility],[address] [place] [address] 31661 Kidney and Bladderon 025 Kidney and Bladder [facility] Imaging Services [address] [place] [address] [id number] Kidney and Bladder MR#: [id number] Acct: [id number] Name: DAV WARE Rep #: [id number] : 1960 F 64 From: David stewart MD PCP: Alejandra Godwin PA-C Status: REG CLI Study: Kidney and Bladder Date of Exam: 01/07/25 Exam# [id number] Ordering Dr: Alejandra Godwin PROCEDURE: KIDNEY AND BLADDER 01/07/2025 REASON FOR EXAM: RENAL CALCIFICATION TECHNIQUE: KIDNEY AND BLADDER COMPARISON: None FINDINGS: Right kidney measures 10.9 x 4.9 x 5.1 cm. Cortex measures 1.2 cm. Upper pole stone measuring 5 x 5.3 mm, midpole stone measuring 4 x 4 x 3 mm and inferior pole stone 4 x 4 x 3 mm are noted. Slightly prominent renal pelvis measuring 1.5 cm. Left kidney measures 10.3 x 5.6 x 5.2 cm. Cortex measures 1.2 cm. Inferior pole cyst measuring 2.4 x 2.2 x 2.3 cm is noted. Inferior pole stone measuring 4 x 4 x 4 mm and midpole stone measuring 6 x 5 x 3 mm are noted. No hydronephrosis. Urinary bladder volume is 442 cc. Wall measures 2.6 mm. Wall is unremarkable. Jets are not visualized. US/Kidney and Bladder IMPRESSION: Bilateral renal stones. Left renal cysts. Slightly prominent right renal pelvis. Further CT is advised if clinically warranted Reading Location: [place] [address] CC: RUSSEL Godwin Type Inspector: Signed Normal [facility] Bone density reportOrdered B y: Rex Glez on 09-23-2024 Study report Skeletal system DXA [facility] Imaging Services [address] [place], [place] [address] Dexa Bone Density Study MR#: [id number] Acct: [id number] Name: DAV WARE Rep #: [id number] : 1960 F 64 From: Dylan Glez MD PCP: Alejandra Godwin PA-C Status: REG C LI Study:Dexa Bone Density Study Date of Exam: 09/23/24 Exam# [id number] Ordering Dr: Fortunato Zhu MD PROCEDURE: DEXA BONE DENSITY STUDY REASON FOR EXAM: F, age 64 y/o . Postmenopausal. TECHNIQUE: DEXA scan of the lumbar spine and both hips. COMPARISON: Comparison is made with prior study dated August 21, 2022. FINDINGS: Lumbar Spine (L1-L4): g/cm2 (0.834)/T-score (-1.3)/Z-score (0.4) findings are suggestive of osteopenia with a low fracture risk. Left Femur Total: g/cm2 (0.720)/T-score (-1.8)/Z-score (-0.5) Left Femoral Neck: g/cm2 (0.597)/T-score (-2.3)/Z-score (-0.7) Right Femur Total: g/cm2 (0.691)/T-score (-2.1)/Z-score (-0.8) Right Femoral Neck: g/cm2 (0 0.595)/T-score (-2.3)/Z-score (-0 points) The T-Scores on the most recent prior examination were: Lumbar Spine (L1-L4): There has been improvement of bone density since the previous examination. Left Femur Total: Loss of 2.4%. Right Femur Total: Loss of 2%. BD/Dexa Bone Density Study IMPRESSION: The patient is considered osteopenic as outlined below according to World Mike Organization (WHO) criteria with a high fracture risk. There has been worsening of bone density since the previous examination. Reading Location: [facility] CC: RUSSEL Godwin; Dr. Fortunato Zhu MD ~ Type Inspector: Signed [facility] Dexa Bone Density Studyon Dexa Bone Density Study [facility] Imaging Services [address] [place] [address] Dexa Bone Density Study MR#: [id number] Acct: [id number] Name: DAV WARE Rep #: [id number] : 1960 F 64 From: Rex graves MD PCP: Alejandra Godwin PA-C Status: REG CLI Study: Dexa Bone Density Study Date of Exam: 09/23/24 Exam# [id number] Ordering Dr: Fortunato Zhu MD PROCEDURE: DEXA BONE DENSITY STUDY REASON FOR EXAM: F, age 64 y/o . Postmenopausal. TECHNIQUE: DEXA scan of the lumbar spine and both hips. COMPARISON: Comparison is made with prior study dated August 21, 2022. FINDINGS: Lumbar Spine (L1-L4): g/cm2 (0.834)/T-score (-1.3)/Z-score (0.4) findings are suggestive of osteopenia with a low fracture risk. Left Femur Total: g/cm2 (0.720)/T-score (-1.8)/Z-score (-0.5) Left Femoral Neck: g/cm2 (0.597)/T-score (-2.3)/Z-score (-0.7) Right Femur Total: g/cm2 (0.691)/T-score (-2.1)/Z-score (-0.8) Right Femoral Neck: g/cm2 (0 0.595)/T-score (-2.3)/Z-score (-0 points) The T-Scores on the most recent prior examination were: Lumbar Spine (L1-L4): There has been improvement of bone density since the previous examination. Left Femur Total: Loss of 2.4%. Right Femur Total: Loss of 2%. BD/Dexa Bone Density Study IMPRESSION: The patient is considered osteopenic as outlined below according to World Mike Organization (WHO) criteria with a high fracture risk. There has been worsening of bone density since the previous examination. Reading Location: [facility] CC: RUSSEL Godwin; Dr. Fortunato Zhu MD Type Inspector: Signed Normal [facility] Radiation Oncology Visiton 0 09-14-2024 Radiation Oncology Visit [facility] [address] [place] [address] OFFICE VISIT Date of Service: 09/14/24927 MR#: [id number] Acct: [id number] Name: DAV WARE Rep #: [id number] : 1960 From: Tacos Merino DO Age/Sex: 64/F Location: [facility] Status: Signed Intake Vital Signs 03/16/24 15:35 09/09/24 09:52 09/14/24 09:30 Height 5 ft 4 in 5 ft 4 in 5 ft 4 in Weight: 153 lb 2 oz 152 lb 5 oz BMI 26.2 26.1 BP 137/81 H 127/80 H Blood Pressure Location Lt brachial Lt brachial Position Sitting Sitting Respiration 16 18 Pulse 59 L 61 Pulse Source Monitor Monitor Temp 97.5 F L 97.5 F L Temperature Source Temporal Artery Temporal Artery Pulse Oximetry (%) 98 96 Oxygen Delivery Method room air room air Intake Visit Reasons: 1 YR F/U BREAST Is patient in pain?: No Allergies No Known Allergies Allergy (Verified 09/14/24 09:33) Medications ???Medication ???Instructions ???Recorded ???Confirmed ???Type cholecalciferol (vitamin D3) 125 5,000 unit PO DAILY 12/03/1809/14 History mcg (5,000 unit) capsule metoprolol succinate 50 mg 50 mg PO DAILY 12/03/18 09/14/24 H istory tablet,extended release 24 hr valsartan 80 mg tablet 80 mg PO DAILY 12/03/18 09/14/24 H istory ibuprofen 200 mg tablet 200 mg PO Q6H PRN PRN Mod-Severe 0 12/05/18 09/14/24 Rx Pain (-04/30) omeprazole 20 mg capsule,delayed 20 mg PO DAILY 02/03/20 09/14/24 H istory release calcium carbonate 1,250 mg PO DAILY 02/17/20 5 History rosuvastatin 5 mg tablet 5 mg PO QODAY 09/14/20 09/14/24 Hi story fluoxetine 20 mg capsule 40 mg PO DAILY 12/07/20 09/14/24 H istory denosumab 60 mg/mL subcutaneous 60 mg subcut [id number] 05/04/21 History syringe (Prolia) anastrozole 1 mg tablet 1 mg PO DAILY #90 TABLETS 09/10/24 09/14/24 Rx Have you fallen in the past year?: No PFSH PFSH Medical History Encounter for screening for malignant neoplasm of lung Cataract BCC (basal cell carcinoma), leg Pain of left scapula Encounter for screening for malignant neoplasm of lung in current smoker with 30 pack year history or greater History of tobacco use Malignant neoplasm of lower-outer quadrant of right female breast Acid reflux Anxiety Hypertension Abnormal ultrasound of breast Abnormal mammogram of right breast Other abnormal auditory perceptions, unspecified ear 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 Home Medications ???Medication ???Instructions ???Recorded ???Last Taken ???Type cholecalciferol (vitamin D3) 125 5,000 unit PO DAILY 12/03/18 Unkno wn History mcg (5,000 unit) capsule metoprolol succinate 50 mg 50 mg PO DAILY 12/03/18 02/18/20 0 7:00 History tablet,extended release 24 hr valsartan 80 mg tablet 80 mg PO DAILY 12/03/18 02/18/20 0 7:00 History ibuprofen 200 mg tablet 200 mg PO Q6H PRN PRN Mod-Severe 0 12/05/18 Unknown Rx Pain (-04/30) omeprazole 20 mg capsule,delayed 20 mg PO DAILY 02/03/20 02/18/20 0 7:00 History release calcium carbonate 1,250 mg PO DAILY 02/17/20 Unknown History rosuvastatin 5 mg tablet 5 mg PO QODAY 09/14/20 Unknown His tory fluoxetine 20 mg capsule 40 mg PO DAILY 12/07/20 Unknown Hi story denosumab 60 mg/mL subcutaneous 60 mg subcut [id number] 05/04/21 Unk nown History syringe (Prolia) anastrozole 1 mg tablet 1 mg PO DAILY #90 TABLETS 09/10/24 Unknown Rx Allergy/AdvReac Type Severity Reaction Status Date / Time No Known Allergies Allergy Verified 09/14/24 09:33 Family History Mother Diabetes Heart disease Hypertension High cholesterol Brother Colon cancer High cholesterol Hypertension Sister Cancer MELANOMA Surgical History S/P Mohs surgery for basal cell carcinoma H/O bilateral salpingo-oophorectomy History of lumpectomy Hx of breast biopsy Hx of mastoidectomy Hx of hysterectomy Social History Smoking Status: Former smoker quit date: 09/19/17 pack-years: 40 Tobacco: How many years used: 40 how long ago did patient quit smokin years second hand exposure: No quit status: quit date established alcohol intake: never substance use type: does not use caffeine: Yes Type: coffee what type of physical activity do you participate in: walking frequency: daily Diagnosis: Dav Ware is a 64-year-old female diagnosed with pathologic stage IA, prognostic stage IA (pT1c (m) pN0 (i+)(sn) M0) grade 2 invasive ductal carcinoma (ER >95%, VT 75%, Her2 2+ IHC not amplified on FISH) of the right outer breast (more content not included)... Normal [facility] Basic Metabolic Profile (BMP )on 09-09-2024 BUN/CRE 22.0 RATIO High 05-10 [facility] Comment on above: Performed By: #### L 500.2500 ####[facility] [address] [place], [address] CA,Total 10.2 mg/dL High 8.5-10.1 [facility] Comment on above: Performed By: #### L 500.2500 ####[facility] [address] [place], [address] Chloride [Moles/Vol] 107 mmol/L Normal 98-107 [facility] Comment on above: Performed By: #### L 500.2500 ####[facility] [address] [place], [address] CO2 [Moles/Vol] 26.0 mmol/L Normal 21.0-32.0 [facility] Comment on above: Performed By: #### L 500.2500 ####[facility] [address] [place], [address] Creatinine [Mass/Vol] 0.77 mg/dL Normal 0.55-1.02 [facility] Comment on above: Result Comment: The validity of the calculated GFR GFRAA in patients over 70 years has not been determined. Clinical correlation is essential. Performed By: #### L 500.2500 ####[facility] [address] [place], [address] ECRCL 64.97 ml/min Normal [facility] Comment on above: Performed By: #### L 500.2500 ####[facility] [address] [place], [address] EST GFR - AA 96 mL/min Normal >60 [facility] Comment on above: Result Comment: Afri can [place] GFR Calc Performed By: #### L 500.2500 ####[facility] [address] [place], [address] GAP 6 Normal 5-15 [facility] Comment on above: Performed By: #### L 500.2500 ####[facility] [address] [place], [address] GFR/1.73 sq M.predicted among non-blacks MDRD (S/P/Bld) [Vol rate/Area] 80 mL/min/{1.73_m2} Normal >60 [facility] Comment on above: Result Comment: Non- GFR Calc Performed By: #### L 500.2500 ####[facility] [address] [place], [address] Glucose [Mass/Vol] 95 mg/dL Normal 74-106 [facility] Comment on above: Performed By: #### L 500.2500 ####[facility] [address] [place], [address] Potassium [Moles/Vol] 3.9 mmol/L Normal 3.5-5.1 [facility] Comment on above: Performed By: #### L 500.2500 ####[facility] [address] [place], [address] Sodium [Moles/Vol] 139 mmol/L Normal 136-145 [facility] Comment on above: Performed By: #### L 500.2500 ####[facility] [address] [place], [address] Urea nitrogen [Mass/Vol] 17 mg/dL Normal 7-18 [facility] Comment on above: Performed By: #### L 500.2500 ####[facility] [address] [place], [address] Blood urea nitrogen (BUN)/cr eatinine ratioOrdered By: Fortunato Zhu on 09-09-2024 Urea nitrogen/Creatinine [Mass ratio] 22.0 mg/mg High 10-20 [facility] Carbon dioxide measurementOr dered By: Fortunato Zhu on 09-09-2024 CO2 [Moles/Vol] 26.0 mmol/L 21.0-32.0 [facility] Chloride measurementOrdered By: Fortunato Zhu on 09-09-2024 Chloride [Moles/Vol] 107 mmol/L 98-107 [facility] Estimated glomerular filtrat ion rate (GFR) AmericanOrdered By: Fortunato Zhu on 09-09-2024 Estimated GFR (MDRD) Amer 96 mL/min >60 [facility] Comment on above: GFR Calc Estimation of creatinine tabby aranceOrdered By: Fortunato Zhu on 09-09-2024 Estimated Creatinine Clearance Calc 64.97 ml/min [facility] Glomerular filtration rate ( GFR) estimationOrdered By: Fortunato Zhu on 09-09-2024 Estimated GFR (MDRD) Non-Af Amer 80 mL/min >60 [facility] Comment on above: Non- GFR Calc Glucose measurementOrdered B y: Fortunato Zhu on 09-09-2024 Glucose [Mass/Vol] 95 mg/dL 74-106 [facility] Oncology Visit Reporton 08-22 Oncology Visit Report [facility] [address] [place] [address] OFFICE VISIT Date of Service: 09/09/24 0942 MR#: [id number] Acct: [id number] Name: DAV WARE Rep #: [id number] : 1960 From: Fortunato Zhu MD Age/Sex: 64/F Location: [facility] Status: Signed HPI Subjective Date of Service 09/09/24 Chief Complaint Breast cancer on treatment History of Present Illness 63-year-old female who presented after an abnormal screening mammogram. February 03, 2020 Right breast, ultrasound-guided needle core biopsy: Invasive ductal carcinoma, nuclear grade 1-2 (0.9 cm in greatest length). E-Cad (ECH-6) positive CK8 ([id number]) positive Calponin-1 (NU483X) negative CK5-6 (D5 1684) positive P40 (BC28) negative P53 (DO-7) positive, <10% Ki-67 (30-9) positive, low MORPHOMETRIC ANALYSIS ER (clone 6F11) >95%, strong intensity VT (clone 16/1E2) 75%, moderate intensity Her-2Neu (clone CB11) 2+ IN SITU HYBRIDIZATION (ERIN) FOR HER2 Interpretation: Not Amplified / Negative February 18, 2020 right breast partial mastectomy with sentinel lymph node biopsy: FROZEN SECTION DIAGNOSIS A. Right axillary sentinel lymph nodes, biopsy: Two out of two lymph nodes negative for carcinoma. MICROSCOPIC DIAGNOSIS A. Right axillary sentinel lymph nodes, biopsy: One out of two lymph nodes positive for metastatic isolated tumor cells (0.11mm in greatest dimension). See comment. B. Right breast, lumpectomy with needle localization: Invasive ductal carcinoma, two foci. COMMENT A. Immunohistochemistry ([id number]) supports the diagnosis of metastatic isolated tumor cells in one out two lymph nodes.. BREAST CANCER SUMMARY Procedure - excision with wire-guided localization Specimen laterality right Invasive tumor: Tumor site upper outer quadrant Tumor size greatest dimension large invasive focus 1.1 cm, additional dimension 1 x 0.6 cm Histologic type invasive ductal carcinoma, no special type Histologic grade ([place] grade): Glandular/tubular differentiation score - 3 Nuclear pleomorphism score - 2 Mitotic count score - 2 Overall grade grade 2 (score of 7) Tumor focality multiple foci of invasive carcinoma Number of foci - 2 Size of individual foci 1.1 x 1 x 0.6 cm and 0.2 x 0.2 cm (block B12) Ductal Carcinoma In Situ not identified Tumor extension: Skin skin is not present Nipple not applicable Skeletal muscle no skeletal muscle is present. Margins invasive carcinoma 0.3 cm away from the closest inferior margin Regional Lymph Nodes: Total number of lymph nodes examined 2 Number of sentinel lymph nodes examined - 2 Number of lymph nodes with isolated tumor cells 1 Number of lymph nodes with macrometastases and micrometastases - 0 Treatment effect: No known presurgical therapy. Lymphvascular invasion not identified Dermal lymphvascular invasion not applicable Additional Pathologic Findings fibrocystic changes and intraductal hyperplasia without atypia. Focal changes consistent with previous biopsy site. Ancillary Studies: Previously performed on same tumor ([id number] / [id number]) ER: positive (>95%, strong intensity) VT: positive (75%, moderate intensity) [id number]: equivocal (2+) Her2 by dualISH: HER2:CEP-17 ratio: 0.9 Average HER2 signal: 2.1 Average CEP-17 signal: 2.35 Clinical History - Please make reference to previous specimen () right breast tissue, ultrasound-guided core biopsy with diagnosis of invasive ductal carcinoma. Pathologic Stage: pT1c pN0(i+) pMx Oncotype DX score of 14 (low risk) Treatment summary: February 18, 2020 right breast partial mastectomy with sentinel lymph node biopsy. Adjuvant hormonal therapy: Arimidex March 2020. 03/26/2020 - 04/25/2020: received 4256 cGy of 6 MV photons in 16 fractions to the right breast. 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 Normal [facility] Potassium measurementOrdered By: Fortunato Zhu on 09-09-2024 Potassium [Moles/Vol] 3.9 mmol/L 3.5-5.1 [facility] Serum anion gap measurementO rdered By: Fortunato Zhu on 09-09-2024 Anion gap [Moles/Vol] 6 mmol/L 5-15 [facility] Serum or plasma calcium marla urement (mass/volume)Ordered By: Fortunato Zhu on 09-09-2024 Calcium [Mass/Vol] 10.2 mg/dL High 8.5-10.1 [facility] Serum or plasma creatinine m easurement (mass/volume)Ordered By: Fortunato Zhu on 09-09-2024 Creatinine [Mass/Vol] 0.77 mg/dL 0.55-1.02 [facility] Comment on above: The validity of the calculated GFR & GFRAA in patients over 70 years has not been determined. Clinical correlation is essential. Serum or plasma urea nitroge n measurement (mass/volume)Ordered By: Fortunato Zhu on 09-09-2024 Urea nitrogen [Mass/Vol] 17 mg/dL 7-18 [facility] Sodium levelOrdered By: Gavin Zhu on 09-09-2024 Sodium [Moles/Vol] 139 mmol/L 136-145 [facility] HIP BILAT 2+ VIEWS W/AP PELV Leslie 07-21-2024 HIP BILAT 2+ VIEWS W/AP PELVIS [address] [address] Patient: ELANA WARE Phone#: : 1960 Age: 64 Gender: F Pt. Type: Out Account: [id number] Location: [facility] Ordering: [facility] Exam Date: 07/21/2024/11:46 Family Phys: Charge Code: [id number] Physician: [place] Order #: [id number] Dose#: PROCEDURE: X-RAY HIP BILAT MIN 2 VIEWS W/AP PELVIS COMPARISON: None. INDICATIONS: Right hip pain. FINDINGS: BONES: No significant arthropathy or acute abnormality. Degenerative changes are present at the lower lumbar spine. SOFT TISSUES: Negative. No visible soft tissue swelling. EFFUSION: None visible. OTHER: Negative. CONCLUSION: 1. There is no evidence of acute bone abnormality. Degenerative changes are present at the lower lumbar spine. Dictated by: Verna Sherwood MD on 07/21/2024 at 12:28 Approved by: Verna Sherwood MD on 07/21/2024 at 12:30 Normal [facility] LUMBO SACRAL COMPLETE MIN 4 VIEWSon 07-21-2024 LUMBO SACRAL COMPLETE MIN [address] [address] Patient: ELANA WARE Phone#: : 1960 Age: 64 Gender: F Pt. Type: Out Account: [id number] Location: 062 Ordering: [facility]A [facility] Exam Date: 07/21/2024/11:53 Family Phys: Charge Code: [id number] Physician: [place] Order #: [id number] Dose#: PROCEDURE: X-RAY LUMBAR SPINE COMPLETE MIN 4 VIEWS COMPARISON: None. INDICATIONS: Right hip pain. FINDINGS: BONES: Mild degenerative changes of the spine are present. There is no evidence of acute bone abnormality or subluxation. DISC SPACES: There is disc space narrowing at the L5-S1 level. PARASPINOUS: Aortic calcification is present without aneurysmal dilatation. Irregularly-shaped calculus versus grouping of calcifications at the lower pole of the right kidney measures 16 x 15 millimeters. OTHER: Negative. CONCLUSION: 1. Mild degenerative changes of the spine are present. 2. Right renal calcification. Dictated by: Verna Sherwood MD on 07/21/2024 at 12:24 Approved by: Verna Sherwood MD on 07/21/2024 at 12:28 Normal [facility] Alanine aminotransferase (AL T) assayOrdered By: Lynsey Strong on 03-16-2024 ALT [Catalytic activity/Vol] 16 U/L 13-56 [facility] Albumin to globulin ratioOrd ered By: Lynsey Strong on 03-16-2024 Albumin/Globulin [Mass ratio] 1.0 {ratio} 0.9-2.4 [facility] Alkaline phosphataseOrdered By: Lynsye Strong on 03-16-2024 ALP [Catalytic activity/Vol] 63 U/L 45-117 [facility] Bilirubin, totalOrdered By: Lynsey Strong on 03-16-2024 Bilirubin [Mass/Vol] 0.30 mg/dL 0.20-1.00 [facility] Comment on above: For patients on eltr ombopag therapy, use of Dimension Goodman TBIL is not recommended. Laboratory - Chemistry and C hemistry - challengeOrdered By: Lynsey Strong on 03-16-2024 AST [Catalytic activity/Vol] 16 U/L 15-37 [facility] Serum albumin measurementOrd ered By: Lynsey Strong on 03-16-2024 Albumin [Mass/Vol] 3.6 g/dL 3.2-5.0 [facility] Serum globulin measurementOr dered By: Lynsey Strong on 03-16-2024 Globulin (S) [Mass/Vol] 3.7 g/dL 2.2-4.2 [facility] Total proteinOrdered By: Iris Strong on 03-16-2024 Protein [Mass/Vol] 7.3 g/dL 6.4-8.2 [facility] Determination of erythrocyte mean corpuscular volume (MCV)Ordered By: Lynsey Strong on 09-16-2023 MCV (RBC) [Entitic vol] 91.8 fL 81-99 [facility] Erythrocyte distribution wid th ratioOrdered By: Lynsey Strong on 09-16-2023 Erythrocyte distribution width (RBC) [Ratio] 14.1 % 11.6-14.6 [facility] Erythrocyte distribution wid th standard deviationOrdered By: Lynsey Tae on 09-16-2023 Erythrocyte distribution width (RBC) [Entitic vol] 47.1 fL High 35.1-43.9 [facility] Hematocrit Auto (Bld) [Volum e fraction]Ordered By: Lynsey Strong on 09-16-2023 Hematocrit (Bld) [Volume fraction] 42.6 % 37-47 [facility] Immature granulocytes/100 WB C Auto (Bld)Ordered By: [facility] Tae on 09-16-2023 Immature granulocytes/100 WBC (Bld) 0.200 % 0.0-0.9 [facility] Comment on above: IG% - Immature Granu locytes (promyelocytes, myelocytes and metamyelocytes) > 1% indicates that a LEFT SHIFT is Present. Laboratory - Hematology and Cell countsOrdered By: Lynsey Strong on 09-16-2023 MCH (RBC) [Entitic mass] 29.7 pg 27.0-32.0 [facility] MCHC (RBC) [Mass/Vol] 32.4 g/dL 32-36 [facility] Nucleated RBC/100 WBC (Bld) [Ratio] 0 % 0-5 [facility] Platelet mean volume (Bld) [Entitic vol] 9.5 fL 6.2-12.0 [facility] Platelets (Bld) [#/Vol] 427 10*3/uL 150-450 [facility] Lymphocytes Auto (Unsp spec) [#/Vol]Ordered By: Lynsey Strong on 09-16-2023 Lymphocytes (Bld) [#/Vol] 1.96 10*3/uL 0.83-4.51 [facility] Lymphocytes/100 WBC Auto (Un sp spec)Ordered By: Lynsey Strong on 09-16-2023 Lymphocytes/100 WBC (Bld) 31.2 % 19-41 [facility] RBC Auto (Bld) [#/Vol]Ordere d By: Lynsey PereraTae on 09-16-2023 RBC (Bld) [#/Vol] 4.64 10*6/uL 4.2-5.4 [facility] Trichomonas screening testOr dered By: Lynsey Strong on 09-16-2023 Basophils/100 WBC (Bld) 1.0 % 0-1 [facility] Eosinophils/100 WBC (Bld) 1.9 % 0-5 [facility] Hemoglobin (Bld) [Mass/Vol] 13.8 g/dL 12.0-15.0 [facility] Monocytes/100 WBC (Bld) 5.1 % 0-10 [facility] Neutrophils (Bld) [#/Vol] 3.8 10*3/uL 2.0-7.7 [facility] Neutrophils/100 WBC (Bld) 60.6 % 47-70 [facility] WBC (Bld) [#/Vol] 6.3 10*3/uL 4.4-11.0 [facility] Absolute lymphocyte counton 04-15-2022 Lymphocytes Auto (Unsp spec) [#/Vol] 1.57 10*3/uL 0.83-4.51 [facility] Work Phone: Basophil percentageon 2021 Basophils/100 WBC (Bld) 0.4 % 0-1 [facility] Work Phone: Chloride [Moles/Vol] 103 mmol/L 98-107 [facility] Work Phone: Eosinophils/100 WBC (Bld) 0.9 % 0-5 [facility] Work Phone: Glucose [Mass/Vol] 112 mg/dL 74-106 [facility] Work Phone: [phone] Comment on above: Fasting Glucose resu lt from 100 to 125 mg/dL suggests IMPAIRED HOMEOSTASIS per A.D.A. criteria. Neutrophils (Bld) [#/Vol] 7.7 10*3/uL 2.0-7.7 [facility] Work Phone: Neutrophils/100 WBC (Bld) 77.0 % 47-70 [facility] Work Phone: Potassium [Moles/Vol] 3.3 mmol/L 3.5-5.1 [facility] Work Phone: Sodium [Moles/Vol] 141 mmol/L 136-145 [facility] Work Phone: WBC (Bld) [#/Vol] 10.0 10*3/uL 4.4-11.0 [facility] Work Phone: Blood erythrocytes count (nu mber/volume)on 04-15-2022 RBC (Bld) [#/Vol] 4.15 10*6/uL 4.2-5.4 [facility] Work Phone: Blood hemoglobin measurement (mass/volume)on 04-15-2022 Hemoglobin (Bld) [Mass/Vol] 12.9 g/dL 12.0-15.0 [facility] Work Phone: Blood lymphocytes/100 leukoc yteson 04-15-2022 Lymphocytes/100 WBC (Bld) 15.6 % 19-41 [facility] Work Phone: Blood monocytes/100 leukocyt eson 04-15-2022 Monocytes/100 WBC (Bld) 5.8 % 0-10 [facility] Work Phone: Blood platelet mean volumeon 04-15-2022 Platelet mean volume (Bld) [Entitic vol] 9.6 fL 6.2-12.0 [facility] Work Phone: Determination of erythrocyte mean corpuscular volume (MCV)on 04-15-2022 MCV (RBC) [Entitic vol] 93.0 fL 81-99 [facility] Work Phone: Hematocrit Auto (Bld) [Volum e fraction]on 04-15-2022 Hematocrit (Bld) [Volume fraction] 38.6 % 37-47 [facility] Work Phone: Laboratory - Chemistry and C hemistry - challengeon 04-15-2022 CO2 [Moles/Vol] 26.0 mmol/L 21.0-32.0 [facility] Work Phone: Urea nitrogen/Creatinine [Mass ratio] 12.1 mg/mg 10-20 [facility] Work Phone: Laboratory - Hematology and Cell countson 04-15-2022 Erythrocyte distribution width (RBC) [Entitic vol] 46.7 fL 35.1-43.9 [facility] Work Phone: Erythrocyte distribution width (RBC) [Ratio] 13.7 % 11.6-14.6 [facility] Work Phone: Immature granulocytes/100 WBC (Bld) 0.300 % 0.0-0.9 [facility] Work Phone: Comment on above: IG% - Immature Granu locytes (promyelocytes, myelocytes and metamyelocytes) > 1% indicates that a LEFT SHIFT is Present. MCH (RBC) [Entitic mass] 31.1 pg 27.0-32.0 [facility] Work Phone: Nucleated RBC/100 WBC (Bld) [Ratio] 0 % 0-5 [facility] Work Phone: MCHC Auto (RBC) [Mass/Vol]on 04-15-2022 MCHC (RBC) [Mass/Vol] 33.4 g/dL 32-36 [facility] Work Phone: No Panel Informationon 04-15 Estimated Creatinine Clearance Calc 67.19 ml/min [facility] Work Phone: Estimated GFR (MDRD) Amer 101 mL/min >60 [facility] Work Phone: Comment on above: GFR Calc Estimated GFR (MDRD) Non-Af Amer 84 mL/min >60 [facility] Work Phone: Comment on above: Non- GFR Calc Platelets bldon 04-15-2022 Platelets (Bld) [#/Vol] 419 10*3/uL 150-450 [facility] Work Phone: Serum or plasma calcium marla urement (mass/volume)on 04-15-2022 Calcium [Mass/Vol] 9.5 mg/dL 8.5-10.1 [facility] Work Phone: Serum or plasma creatinine m easurement (mass/volume)on 04-15-2022 Creatinine [Mass/Vol] 0.74 mg/dL 0.55-1.02 [facility] Work Phone: Comment on above: The validity of the calculated GFR & GFRAA in patients over 70 years has not been determined. Clinical correlation is essential. Serum or plasma urea nitroge n measurement (mass/volume)on 04-15-2022 Urea nitrogen [Mass/Vol] 9 mg/dL 7-18 [facility] Work Phone: Thin prep Papanicolaou smear with manual screeningon 04-15-2022 Thin prep Papanicolaou smear with manual screening 12 5-15 [facility] Work Phone: Absolute lymphocyte counton 03-14-2022 Lymphocytes Auto (Unsp spec) [#/Vol] 1.65 10*3/uL 0.83-4.51 [facility] Work Phone: Basophil percentageon 2021 Basophils/100 WBC (Bld) 0.7 % 0-1 [facility] Work Phone: Bilirubin [Mass/Vol] 0.40 mg/dL 0.20-1.00 [facility] Work Phone: [phone] Comment on above: For patients on eltr ombopag therapy, use of Dimension Goodman TBIL is not recommended. Chloride [Moles/Vol] 108 mmol/L 98-107 [facility] Work Phone: [phone] Eosinophils/100 WBC (Bld) 0.7 % 0-5 [facility] Work Phone: [phone] Glucose [Mass/Vol] 96 mg/dL 74-106 [facility] Work Phone: [phone] Neutrophils (Bld) [#/Vol] 3.3 10*3/uL 2.0-7.7 [facility] Work Phone: [phone] Neutrophils/100 WBC (Bld) 61.9 % 47-70 [facility] Work Phone: [phone] Potassium [Moles/Vol] 3.8 mmol/L 3.5-5.1 [facility] Work Phone: Protein [Mass/Vol] 7.2 g/dL 6.4-8.2 [facility] Work Phone: [phone] Sodium [Moles/Vol] 140 mmol/L 136-145 [facility] Work Phone: [phone] WBC (Bld) [#/Vol] 5.4 10*3/uL 4.4-11.0 [facility] Work Phone: Blood erythrocytes count (nu mber/volume)on 03-14-2022 RBC (Bld) [#/Vol] 4.33 10*6/uL 4.2-5.4 [facility] Work Phone: [phone] Blood hemoglobin measurement (mass/volume)on 03-14-2022 Hemoglobin (Bld) [Mass/Vol] 13.4 g/dL 12.0-15.0 [facility] Work Phone: [phone] Blood lymphocytes/100 leukoc yteson 03-14-2022 Lymphocytes/100 WBC (Bld) 30.7 % 19-41 [facility] Work Phone: Blood monocytes/100 leukocyt eson 03-14-2022 Monocytes/100 WBC (Bld) 5.8 % 0-10 [facility] Work Phone: Blood platelet mean volumeon 03-14-2022 Platelet mean volume (Bld) [Entitic vol] 9.0 fL 6.2-12.0 [facility] Work Phone: Determination of erythrocyte mean corpuscular volume (MCV)on 03-14-2022 MCV (RBC) [Entitic vol] 92.1 fL 81-99 [facility] Work Phone: Hematocrit Auto (Bld) [Volum e fraction]on 03-14-2022 Hematocrit (Bld) [Volume fraction] 39.9 % 37-47 [facility] Work Phone: Laboratory - Chemistry and C hemistry - challengeon 03-14-2022 ALP [Catalytic activity/Vol] 51 U/L 45-117 [facility] Work Phone: [phone] ALT [Catalytic activity/Vol] 18 U/L 13-56 [facility] Work Phone: CO2 [Moles/Vol] 27.0 mmol/L 21.0-32.0 [facility] Work Phone: Globulin (S) [Mass/Vol] 3.6 g/dL 2.2-4.2 [facility] Work Phone: Urea nitrogen/Creatinine [Mass ratio] 14.9 mg/mg 10-20 [facility] Work Phone: Laboratory - Hematology and Cell countson 03-14-2022 Erythrocyte distribution width (RBC) [Entitic vol] 46.4 fL 35.1-43.9 [facility] Work Phone: Erythrocyte distribution width (RBC) [Ratio] 13.6 % 11.6-14.6 [facility] Work Phone: Immature granulocytes/100 WBC (Bld) 0.200 % 0.0-0.9 [facility] Work Phone: Comment on above: IG% - Immature Granu locytes (promyelocytes, myelocytes and metamyelocytes) > 1% indicates that a LEFT SHIFT is Present. MCH (RBC) [Entitic mass] 30.9 pg 27.0-32.0 [facility] Work Phone: Nucleated RBC/100 WBC (Bld) [Ratio] 0 % 0-5 [facility] Work Phone: MCHC Auto (RBC) [Mass/Vol]on 03-14-2022 MCHC (RBC) [Mass/Vol] 33.6 g/dL 32-36 [facility] Work Phone: No Panel Informationon 03-14 Estimated Creatinine Clearance Calc 57.15 ml/min [facility] Work Phone: Estimated GFR (MDRD) Amer 84 mL/min >60 [facility] Work Phone: Comment on above: GFR Calc Estimated GFR (MDRD) Non-Af Amer 70 mL/min >60 [facility] Work Phone: Comment on above: Non- GFR Calc Platelets bldon 03-14-2022 Platelets (Bld) [#/Vol] 421 10*3/uL 150-450 [facility] Work Phone: Serum or plasma albumin marla urement (mass/volume)on 03-14-2022 Albumin [Mass/Vol] 3.6 g/dL 3.2-5.0 [facility] Work Phone: Serum or plasma albumin/glob ulin mass ratioon 03-14-2022 Albumin/Globulin [Mass ratio] 1.0 {ratio} 0.9-2.4 [facility] Work Phone: Serum or plasma calcium marla urement (mass/volume)on 03-14-2022 Calcium [Mass/Vol] 9.6 mg/dL 8.5-10.1 [facility] Work Phone: Serum or plasma creatinine m easurement (mass/volume)on 03-14-2022 Creatinine [Mass/Vol] 0.87 mg/dL 0.55-1.02 [facility] Work Phone: Comment on above: The validity of the calculated GFR & GFRAA in patients over 70 years has not been determined. Clinical correlation is essential. Serum or plasma urea nitroge n measurement (mass/volume)on 03-14-2022 Urea nitrogen [Mass/Vol] 13 mg/dL 7-18 [facility] Work Phone: Thin prep Papanicolaou smear with manual screeningon 03-14-2022 Thin prep Papanicolaou smear with manual screening 16 U/L 15-37 [facility] Work Phone: Thin prep Papanicolaou smear with manual screening 5 5-15 [facility] Work Phone: CBC (INCLUDES DIFF/PLT)on Basophils (Bld) [#/Vol] 0.052 10*3/uL Normal 0-200 [facility] Comment on above: Performed By: #### 6 399, 85554, 7600 #### [facility] [place] [address] Ro[employer] Shingler: Nathan Ahn MD Basophils/100 WBC (Bld) 1.1 % Normal [facility] Comment on above: Performed By: #### 6 399, 39842, 7600 #### [facility] [place] [address] [employer] Shingler: Nathan Ahn MD Eosinophils (Bld) [#/Vol] 0.103 10*3/uL Normal 15-500 [facility] Comment on above: Performed By: #### 6 399, 84042, 7600 #### [facility] [place] [address] Ro[employer] Shingler: Nathan Ahn MD Eosinophils/100 WBC (Bld) 2.2 % Normal [facility] Comment on above: Performed By: #### 6 399, 18876, 7600 #### [facility] of [address], [address] [place] [address] Roof Shingler: Nathan Ahn MD Erythrocyte distribution width (RBC) [Ratio] 14.5 % Normal 11.0-15.0 [facility] Comment on above: Performed By: #### 6 399, 60886, 7600 #### [facility] of [address], [address] [place] [address] Roof Shingler: Nathan Ahn MD Hematocrit (Bld) [Volume fraction] 42.1 % Normal 35.0-45.0 [facility] Comment on above: Performed By: #### 6 399, 48547, 7600 #### [facility] of [address], [address] [place] [address] Roof Shingler: Nathan Ahn MD Hemoglobin (Bld) [Mass/Vol] 13.9 g/dL Normal 11.7-15.5 [facility] Comment on above: Performed By: #### 6 399, 56731, 0 #### [facility] of [address], [address] [place] [address] Ro[employer] Shingler: Nathan Ahn MD Lymphocytes (Bld) [#/Vol] 1.485 10*3/uL Normal 850-3900 [facility] Comment on above: Performed By: #### 6 399, 51811, 7600 #### [facility] of [address], [address] [place] [address] Ro[employer] Shingler: Nathan Ahn MD Lymphocytes/100 WBC (Bld) 31.6 % Normal [facility] Comment on above: Performed By: #### 6 399, 92189, 7600 #### [facility] of [address], [address] [place] [address] Roof Shingler: Nathan Ahn MD MCH (RBC) [Entitic mass] 31.2 pg Normal 27.0-33.0 [facility] Comment on above: Performed By: #### 6 399, 43202, 7600 #### [facility] of [place] [address] Roof Shingler: Nathan Ahn MD MCHC (RBC) [Mass/Vol] 33.0 g/dL Normal 32.0-36.[address] [facility] Comment on above: Performed By: #### 6 399, 17955, 0 #### [facility] of [place] [address] Ro[employer] Shingler: Nathan Ahn MD MCV (RBC) [Entitic vol] 94.4 fL Normal 80.0-100.0 [facility] Comment on above: Performed By: #### 6 399, 52178, 0 #### [facility] of [place] [address] Ro[employer] Shingler: Nathan Ahn MD Monocytes (Bld) [#/Vol] 0.254 10*3/uL Normal 200-950 [facility] Comment on above: Performed By: #### 6 399, , 0 #### [facility] of [place] [address] [employer] Shingler: Nathan Ahn MD Monocytes/100 WBC (Bld) 5.4 % Normal [facility] Comment on above: Performed By: #### 6 399, 66741, 0 #### [facility] of [place] [address] [employer] Shingler: Nathan Ahn MD Neutrophils (Bld) [#/Vol] 2.806 10*3/uL Normal 0744-3848 [facility] Comment on above: Performed By: #### 6 399, 88639, 0 #### [facility] of [place] [address] [employer] Sh[employer]ler: Nathan Ahn MD Neutrophils/100 WBC (Bld) 59.7 % Normal [facility] Comment on above: Performed By: #### 6 399, 76697, 7600 #### [facility] of [place] [address] Ro[employer] Shingler: Nathan Ahn MD Platelet mean volume (Bld) [Entitic vol] 9.6 fL Normal 7.5-12.5 [facility] Comment on above: Performed By: #### 6 399, 06278, 7600 #### [facility] of [address], [address] [place] [address] Ro[employer] Shingler: Nathan Ahn MD Platelets (Bld) [#/Vol] 420 10*3/uL High 140-400 [facility] Comment on above: Performed By: #### 6 399, 96257, 7600 #### [facility] of [address], [address] [place] [address] Roof Shingler: Nathan Ahn MD RBC (Bld) [#/Vol] 4.46 10*6/uL Normal 3.80-5.10 [facility] Comment on above: Performed By: #### 6 399, 64543, 7600 #### [facility] of [address], [address] [place] [address] Ro[employer] Shingler: Nathan Ahn MD WBC (Bld) [#/Vol] 4.7 10*3/uL Normal 3.8-10.8 [facility] Comment on above: Performed By: #### 6 399, 32303, 7600 #### [facility] of [place] [address] Ro[employer] Shingler: Nathan Ahn MD [facility] 01-26-2021 Albumin [Mass/Vol] 4.4 g/dL Normal 3.6-5.1 [facility] Comment on above: Performed By: #### 6 399, 92574, 7600 #### [facility] of [place] [address] Ro[employer] Shingler: Nathan Ahn MD Albumin/Globulin [Mass ratio] 1.8 {ratio} Normal 1.0-2.5 [facility] Comment on above: Performed By: #### 6 399, 42469, 7600 #### [facility] of [place] [address] [employer] Shingler: Nathan Ahn MD ALP [Catalytic activity/Vol] 42 U/L Normal 37-153 [facility] Comment on above: Performed By: #### 6 399, 08745, 7600 #### [facility] of [place] [address] Ro[employer] Shingler: Nathan Ahn MD ALT [Catalytic activity/Vol] 13 U/L Normal 6-29 [facility] Comment on above: Performed By: #### 6 399, 94895, 7600 #### [facility] of [address], [address] [place] [address] Ro[employer] Shingler: Nathan Ahn MD AST [Catalytic activity/Vol] 18 U/L Normal 10-35 [facility] Comment on above: Performed By: #### 6 399, 08991, 7600 #### [facility] of [place] [address] [employer] Sh[employer]ler: Nathan Ahn MD Bilirubin [Mass/Vol] 0.4 mg/dL Normal 0.2-1.2 [facility] Comment on above: Performed By: #### 6 399, 24681, 7600 #### [facility] of [place] [address] [employer] Sh[employer]ler: Nathan Ahn MD BUN/CREATININE RATIO NOT APPLICABLE Normal 6-22 [facility] Comment on above: Performed By: #### 6 399, 81983, 7600 #### [facility] of [place] [address] [employer] Sh[employer]ler: Nathan Ahn MD Calcium [Mass/Vol] 9.8 mg/dL Normal 8.6-10.4 [facility] Comment on above: Performed By: #### 6 399, 64274, 7600 #### [facility] of [place] [address] [employer] Shingler: Nathan Ahn MD Chloride [Moles/Vol] 104 mmol/L Normal 98-110 [facility] Comment on above: Performed By: #### 6 399, 64195, 7600 #### [facility] of [place] [address] [employer] Sh[employer]ler: Nathan Ahn MD CO2 [Moles/Vol] 28 mmol/L Normal 20-32 [facility] Comment on above: Performed By: #### 6 399, 86951, 0 #### [facility] [place] [address] Ro[employer] Sh[employer]ler: Nathan Ahn MD Creatinine [Mass/Vol] 0.77 mg/dL Normal 0.50-0.[address] [facility] Comment on above: Result Comment: For patients >49 years of age, the reference limit for Creatinine is approximately 13% higher for people identified as -[place]. Performed By: #### 6 399, 52720, 0 #### [facility] [place] [address] Ro[employer] Shingler: Nathan Ahn MD eGFR NON-AFR. MICRONESIAN 83 mL/min/1.73m2 Normal > OR = 60 [facility] Comment on above: Performed By: #### 6 399, 73119, 0 #### [facility] [place] [address] Ro[employer] Shingler: Nathan Ahn MD GFR/1.73 sq M.predicted among blacks MDRD (S/P/Bld) [Vol rate/Area] 96 mL/min/{1.73_m2} Normal > OR = 60 [facility] Comment on above: Performed By: #### 6 399, 63427, 0 #### [facility] [place] [address] [employer] Shingler: Nathan Ahn MD Globulin (S) [Mass/Vol] 2.5 g/dL Normal 1.9-3.7 [facility] Comment on above: Performed By: #### 6 399, 09798, 0 #### [facility] [place] [address] Ro[employer] Shingler: Nathan Ahn MD Glucose [Mass/Vol] 100 mg/dL High 65-99 [facility] Comment on above: Result Comment: Fasting reference interval For someone without known diabetes, a glucose value between 100 and 125 mg/dL is consistent with prediabetes and should be confirmed with a follow-up test. Performed By: #### 6 399, 05596, 0 #### [facility] of [place] [address] Ro[employer] Sh[employer]ler: Nathan Ahn MD Potassium [Moles/Vol] 4.2 mmol/L Normal 3.5-5.3 [facility] Comment on above: Performed By: #### 6 399, 25065, 0 #### [facility] of [place] [address] Ro[employer] Shingler: Nathan Ahn MD Protein [Mass/Vol] 6.9 g/dL Normal 6.1-8.1 [facility] Comment on above: Performed By: #### 6 399, , 0 #### [facility] of [place] [address] [employer] Sh[employer]ler: Nathan Ahn MD Sodium [Moles/Vol] 138 mmol/L Normal 135-146 [facility] Comment on above: Performed By: #### 6 399, , 0 #### [facility] [place] [address] Ro[employer] Shingler: Nathan Ahn MD Urea nitrogen [Mass/Vol] 11 mg/dL Normal 7-25 [facility] Comment on above: Performed By: #### 6 399, , 0 #### [facility] of [place] [address] Ro[employer] Shingler: Nathan Ahn MD LIPID PANEL, STANDARDon 07-0 Cholesterol [Mass/Vol] 206 mg/dL High <200 [facility] Comment on above: Performed By: #### 6 399, 26752, 0 #### [facility] of [place] [address] Ro[employer] Shingler: Nathan Ahn MD Cholesterol in HDL [Mass/Vol] 68 mg/dL Normal > OR = 50 [facility] Comment on above: Performed By: #### 6 399, 64552, 0 #### [facility] [address], [address] [place] [address] Ro[employer] Shingler: Nathan Ahn MD Cholesterol in LDL [Mass/Vol] 118 mg/dL High [facility] Comment on above: Result Comment: Refe rence range: <100 Desirable range <100 mg/dL for primary prevention; <70 mg/dL for patients with CHD or diabetic patients with > or = 2 CHD risk factors. LDL-C is now calculated using the Naga calculation, which is a validated novel method providing better accuracy than the Friedewald equation in the estimation of LDL-C. Moy SS et al. ROBSON. 2013;310(19): 7286-0493 (http://education.RocketOz/faq/OOS125) Performed By: #### 6 399, 70977, 7600 #### [facility] [place] [address] Ro[employer] Shingler: Nathan Ahn MD Cholesterol.total/Angi sterol in HDL [Mass ratio] 3.0 {ratio} Normal <5.0 [facility] Comment on above: Performed By: #### 6 399, 64853, 7600 #### [facility] [place] [address] Ro[employer] Shingler: Nathan Ahn MD NON HDL CHOLESTEROL 138 mg/dL (calc) High <130 [facility] Comment on above: Result Comment: For patients with diabetes plus 1 major ASCVD risk factor, treating to a non-HDL-C goal of <100 mg/dL (LDL-C of <70 mg/dL) is considered a therapeutic option. Performed By: #### 6 399, 89941, 7600 #### [facility] [place] [address] Ro[employer] Shingler: Nathan Ahn MD Triglyceride [Mass/Vol] 97 mg/dL Normal <150 [facility] Comment on above: Performed By: #### 6 399, 51114, 7600 #### [facility] [place] [address] Ro[employer] Shingler: Nathan Ahn MD VITAMIN D,25-OH,TOTAL,IAon 0 01-26-2021 VITAMIN D,25-OH,TOTAL,IA 88 ng/mL Normal 30-100 [facility] Comment on above: Result Comment: Ailyn min D Status 25-OH Vitamin D: Deficiency: <20 ng/mL Insufficiency: 20 - 29 ng/mL Optimal: > or = 30 ng/mL For 25-OH Vitamin D testing on patients on D2-supplementation and patients for whom quantitation of D2 and D3 fractions is required, the QuestAssureD(TM) 25-OH VIT D, (D2,D3), LC/MS/MS is recommended: order code 90572 (patients >2yrs). See Note 1 Note 1 For additional information, please refer to [email or web address].[email or web address]/faq/[email or web address] (This link is being provided for informational/ educational purposes only.) Performed By: #### [id number] #### [employer] [facility] [address], [address] [place] [address] Roof Shingler: Nathan Ahn MD Basophil percentageon 2019 Cholesterol [Mass/Vol] 243 mg/dL High <200 [facility] Comment on above: <200 mg/dL Desirable 200-240 mg/dL Borderline >240 mg/dL High Risk Triglyceride [Mass/Vol] 114 mg/dL <199 [facility] Comment on above: The drugs N-Acetylcy steine and Metamizole may falsely depress this assay.Serum Triglycerides Reference Interval Normal <150 mg/dL Borderline high 150 - 199 mg/dL High 200 - 499 mg/dL Very High > or = 500 mg/dL Cholesterol in VLDL [Mass/Vo l]on 06-15-2020 VLDL Cholesterol 23 mg/dL 5-40 [facility] Serum or plasma cholesterol in HDL measurement (mass/volume)on 06-15-2020 Cholesterol in HDL [Mass/Vol] 60 mg/dL >40 [facility] Comment on above: The drugs N-Acetylcy steine and Metamizole may falsely depress this assay. 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 Corrected on 05/29 AT 1802: Previously reported as NASOPHARYNGEAL 05/29/20 1736 A.Bias Corrected on 05/29 AT 1802: Previously reported as NASOPHARYNGEAL COVID 19 Result PLAYGROUND DIRECTOR Abnormal Negative for COVID19 (SARS CoV2) by PCR. [facility] Comment on above: Result Comment: Posi tive for This test was developed and its performance characteristics determined by [facility]'s [facility] [place]. This test has been authorized by FDA under an Emergency Use Authorization (EUA). This test has been validated in accordance with the FDA's Guidance Document Policy for Diagnostics Testing in Laboratories Certified to Perform High Complexity Testing under CLIA prior to Emergency use Authorization for Coronavirus Disease 2019 during the Public Health Emergency issued on September 19, 2019. COVID19 (SARS This test was developed and its performance characteristics determined by [facility] [place]. This test has been authorized by FDA under an Emergency Use Authorization (EUA). This test has been validated in accordance with the FDA's Guidance Document Policy for Diagnostics Testing in Laboratories Certified to Perform High Complexity Testing under CLIA prior to Emergency use Authorization for Coronavirus Disease 2019 during the Public Health Emergency issued on September 19, 2019. CoV2) by This test was developed and its performance characteristics determined by [facility] [place]. This test has been authorized by FDA under an Emergency Use Authorization (EUA). This test has been validated in accordance with the FDA's Guidance Document Policy for Diagnostics Testing in Laboratories Certified to Perform High Complexity Testing under CLIA prior to Emergency use Authorization for Coronavirus Disease 2019 during the Public Health Emergency issued on September 19, 2019. PCR.(*) This test was developed and its performance characteristics determined by [facility] [place]. This test has been authorized by FDA under an Emergency Use Authorization (EUA). This test has been validated in accordance with the FDA's Guidance Document Policy for Diagnostics Testing in Laboratories Certified to Perform High Complexity Testing under CLIA prior to Emergency use Authorization for Coronavirus Disease 2019 during the Public Health Emergency issued on September 19, 2019. No Panel Information SARS-CoV-2 & FLU Antigen (Rapid) [facility] Work Phone: Vital Signs Date Time Vital Sign Value Performing Clinician Facility 04-19-2025 09:18-0400 Body height 162.6 cm Cipriano Galindo MD Work Phone: [facility] 04-19-2025 09:18-0400 Body mass index (BMI) [Ratio] 26.57 kg/m2 Cipriano Galindo MD Work Phone: [facility] 04-19-2025 09:18-0400 Body temperature 98.2 [degF] Cipriano Galindo MD Work Phone: [facility] 04-19-2025 09:18-0400 Body weight 70.22 kg Cipriaon Galindo MD Work Phone: [facility] 02-25-2025 15:18-0400 Body temperature 97.9 [degF] [employer] Work Phone: [facility] 02-25-2025 15:18-0400 Diastolic blood pressure 90 mm[Hg] [employer] Work Phone: [facility] 02-25-2025 15:18-0400 Heart rate 56 /min [employer] Work Phone: [facility] 02-25-2025 15:18-0400 Respiratory rate 16 /min [employer] Work Phone: [facility] 02-25-2025 15:18-0400 SaO2% (BldA) [Mass fraction] 97 % [employer] Work Phone: [facility] 02-25-2025 15:18-0400 Systolic blood pressure 135 mm[Hg] [employer] PA-C Work Phone: [facility] 02-25-2025 13:22-0400 Body height 162.56 cm [employer] PA-C Work Phone: [facility] 02-25-2025 13:22-0400 Body mass index (BMI) [Ratio] 26.2 kg/m2 [employer] PA-C Work Phone: [facility] 02-25-2025 13:22-0400 Body temperature 98.5 [degF] [employer] PA-C Work Phone: [facility] 02-25-2025 13:22-0400 Body weight 69.45 kg [employer] PA-C Work Phone: [facility] 02-25-2025 13:22-0400 Diastolic blood pressure 87 mm[Hg] [employer] PA-C Work Phone: [facility] 02-25-2025 13:22-0400 Heart rate 57 /min [employer] PA-C Work Phone: [facility] 02-25-2025 13:22-0400 Respiratory rate 18 /min [employer] PA-C Work Phone: [facility] 02-25-2025 13:22-0400 SaO2% (BldA) [Mass fraction] 99 % [employer] PA-C Work Phone: [facility] 02-25-2025 13:22-0400 Systolic blood pressure 135 mm[Hg] [employer] PA-C Work Phone: [facility] 10-06-2024 10:51-0400 Body height 162.6 cm Cipriano Galindo MD Work Phone: [facility] 10-06-2024 10:51-0400 Body mass index (BMI) [Ratio] 26.26 kg/m2 Cipriano Galindo MD Work Phone: [facility] 10-06-2024 10:51-0400 Body temperature 98.49 [degF] Cipriano Galidno MD Work Phone: [facility] 10-06-2024 10:51-0400 Body weight 69.4 kg Cipriano Galindo MD Work Phone: [facility] 09-14-2024 09:30-0500 Body height 162.56 cm [employer] PA-C Work Phone: [facility] 09-14-2024 09:30-0500 Body mass index (BMI) [Ratio] 26.1 kg/m2 [employer] PA-C Work Phone: [facility] 09-14-2024 09:30-0500 Body temperature 97.5 [degF] [employer] PA-C Work Phone: [facility] 09-14-2024 09:30-0500 Body weight 69.08 kg [employer] PA-C Work Phone: [facility] 09-14-2024 09:30-0500 Diastolic blood pressure 80 mm[Hg] [employer] PA-C Work Phone: [facility] 09-14-2024 09:30-0500 Heart rate 61 /min [employer] PA-C Work Phone: [facility] 09-14-2024 09:30-0500 Respiratory rate 18 /min [employer] PA-C Work Phone: [facility] 09-14-2024 09:30-0500 SaO2% (BldA) [Mass fraction] 96 % [employer] PA-C Work Phone: [facility] 09-14-2024 09:30-0500 Systolic blood pressure 127 mm[Hg] [employer] PA-C Work Phone: [facility] 09-09-2024 11:23-0500 Diastolic blood pressure 79 mm[Hg] [employer] PA-C Work Phone: [facility] 09-09-2024 11:23-0500 Heart rate 56 /min Alejandra [place] PA-C Work Phone: [facility] 09-09-2024 11:23-0500 Respiratory rate 16 /min Alejandra [place] PA-C Work Phone: [facility] 09-09-2024 11:23-0500 Systolic blood pressure 122 mm[Hg] Alejandra [place] PA-C Work Phone: [facility] 09-09-2024 09:52-0500 Body mass index (BMI) [Ratio] 26.2 kg/m2 Alejandra [place] PA-C Work Phone: [facility] 09-09-2024 09:52-0500 Body temperature 97.5 [degF] Alejandra [place] PA-C Work Phone: [facility] 09-09-2024 09:52-0500 Body weight 69.45 kg Alejandra [employer] PA-C Work Phone: [facility] 09-09-2024 09:52-0500 Diastolic blood pressure 81 mm[Hg] Alejandra [place] PA-C Work Phone: [facility] 09-09-2024 09:52-0500 Heart rate 59 /min Alejandra [employer] PA-C Work Phone: [facility] 09-09-2024 09:52-0500 Respiratory rate 16 /min Alejandra [employer] PA-C Work Phone: [facility] 09-09-2024 09:52-0500 SaO2% (BldA) [Mass fraction] 98 % Alejandra [place] PA-C Work Phone: [facility] 09-09-2024 09:52-0500 Systolic blood pressure 137 mm[Hg] Alejandra [place] PA-C Work Phone: [facility] 03-16-2024 15:35-0400 Body mass index (BMI) [Ratio] 25.2 kg/m2 [employer] Work Phone: [facility] 03-16-2024 15:35-0400 Body temperature 96.8 [degF] [email or web address] Work Phone: [facility] 03-16-2024 15:35-0400 SaO2% (BldA) [Mass fraction] 98 % Alejandra Mambu Work Phone: [facility] 02-10-2024 09:29-0400 Body height 162.6 cm Cipriano Galindo MD Work Phone: [facility] 02-10-2024 09:29-0400 Body mass index (BMI) [Ratio] 24.94 kg/m2 Cipriano Galindo MD Work Phone: [facility] 02-10-2024 09:29-0400 Body weight 65.91 kg Cipriano Galindo MD Work Phone: [facility] 06-25-2023 13:06-0500 Body height 162.6 cm Cipriano Galindo MD Work Phone: [facility] 06-25-2023 13:06-0500 Body mass index (BMI) [Ratio] 26.35 kg/m2 Cipriano Galindo MD Work Phone: [facility] 06-25-2023 13:06-0500 Body temperature 97.39 [degF] Cipriano Galindo MD Work Phone: [facility] 06-25-2023 13:06-0500 Body weight 69.63 kg Cipriano Galindo MD Work Phone: [facility] 02-12-2023 12:33-0400 Body height 162.56 cm PA-C [employer] PA Work Phone: [facility] 02-12-2023 12:33-0400 Body mass index (BMI) [Ratio] 26.2 kg/m2 PA-C Alejandra [employer] PA Work Phone: [facility] 02-12-2023 12:33-0400 Body temperature 98.4 [degF] PA-C Alejandra [employer] PA Work Phone: [facility] 02-12-2023 12:33-0400 Body weight 69.39 kg PA-C Alejandra [employer] PA Work Phone: [facility] 02-12-2023 12:33-0400 Diastolic blood pressure 82 mm[Hg] PA-C Alejandra [employer] PA Work Phone: [facility] 02-12-2023 12:33-0400 Heart rate 58 /min PA-C Alejandra [employer] PA Work Phone: [facility] 02-12-2023 12:33-0400 Respiratory rate 16 /min PA-C [employer] PA Work Phone: [facility] 02-12-2023 12:33-0400 SaO2% (BldA) [Mass fraction] 98 % PA-C [employer] PA Work Phone: [facility] 02-12-2023 12:33-0400 Systolic blood pressure 121 mm[Hg] PA-C [employer] PA Work Phone: [facility] 12-25-2022 12:59-0400 Body height 162.6 cm Cipriano Galindo MD Work Phone: [facility] 12-25-2022 12:59-0400 Body mass index (BMI) [Ratio] 26.43 kg/m2 Cipriano Galindo MD Work Phone: [facility] 12-25-2022 12:59-0400 Body temperature 98.91 [degF] Cipriano Galindo MD Work Phone: [facility] 12-25-2022 12:59-0400 Body weight 69.85 kg Cipriano Galindo MD Work Phone: [facility] 12-03-2022 10:44-0400 Body mass index (BMI) [Ratio] 26.6 kg/m2 PA-C Alejandra [employer] PA Work Phone: [facility] 12-03-2022 10:44-0400 Body temperature 96.6 [degF] PA-C Alejandra [place] PA Work Phone: [facility] 12-03-2022 10:44-0400 Body weight 70.53 kg PA-C Alejandra [place] PA Work Phone: [facility] 12-03-2022 10:44-0400 Diastolic blood pressure 89 mm[Hg] PA-C Alejandra [place] PA Work Phone: [facility] 12-03-2022 10:44-0400 Heart rate 57 /min PA-C Alejandra [place] PA Work Phone: [facility] 12-03-2022 10:44-0400 Respiratory rate 18 /min PA-C Alejandra [place] PA Work Phone: [facility] 12-03-2022 10:44-0400 SaO2% (BldA) [Mass fraction] 93 % PA-C Alejandra [place] PA Work Phone: [facility] 12-03-2022 10:44-0400 Systolic blood pressure 152 mm[Hg] PA-C Alejandra [employer] PA Work Phone: [facility] 06-28-2022 13:02-0500 Body height 162.6 cm Cipriano Galindo MD Work Phone: [facility] 06-28-2022 13:02-0500 Body mass index (BMI) [Ratio] 26.09 kg/m2 Cipriano Galindo MD Work Phone: [facility] 06-28-2022 13:02-0500 Body weight 68.95 kg Cipriano Galindo MD Work Phone: [facility] 06-28-2022 13:02-0500 Diastolic blood pressure 91 mm[Hg] Cipriano Galindo MD Work Phone: [facility] 06-28-2022 13:02-0500 Heart rate 82 /min Cipriano Galindo MD Work Phone: [facility] 06-28-2022 13:02-0500 SaO2% (BldA) [Mass fraction] 98 % Cipriano aGlindo MD Work Phone: [facility] 06-28-2022 13:02-0500 Systolic blood pressure 149 mm[Hg] Cipriano Galindo MD Work Phone: [facility] 04-15-2022 13:03-0400 Diastolic blood pressure 80 mm[Hg] PA-C Alejandra [employer] PA Work Phone: [facility] Work Phone: 04-15-2022 13:03-0400 Respiratory rate 16 /min PA-C Alejandra [employer] PA Work Phone: [facility] Work Phone: 04-15-2022 13:03-0400 Systolic blood pressure 151 mm[Hg] PA-C Alejandra [employer] PA Work Phone: [facility] Work Phone: 04-15-2022 12:17-0400 Body temperature 97.9 [degF] PA-C Alejandra [employer] PA Work Phone: [facility] Work Phone: 04-15-2022 12:17-0400 Heart rate 69 /min PA-C Alejandra [employer] PA Work Phone: [facility] Work Phone: 04-15-2022 12:17-0400 SaO2% (BldA) [Mass fraction] 96 % PA-C Alejandra [place] PA Work Phone: [facility] Work Phone: 04-15-2022 11:14-0400 Body height 162.56 cm PA-C [employer] PA Work Phone: [facility] Work Phone: 04-15-2022 11:14-0400 Body mass index (BMI) [Ratio] 26.2 kg/m2 PA-C Alejandra [employer] PA Work Phone: [facility] Work Phone: 04-15-2022 11:14-0400 Body weight 69.2 kg PA-C Alejandra [employer] PA Work Phone: [facility] Work Phone: 03-14-2022 12:27-0400 Body mass index (BMI) [Ratio] 25.7 kg/m2 PA-C Alejandra [employer] PA Work Phone: [facility] Work Phone: 03-14-2022 12:27-0400 Body weight 68.03 kg PA-C [employer] PA Work Phone: [facility] Work Phone: 03-14-2022 11:15-0400 Body mass index (BMI) [Ratio] 25.7 kg/m2 PA-C [employer] PA Work Phone: [facility] Work Phone: 03-14-2022 11:15-0400 Body temperature 98.1 [degF] PA-C Alejandra [employer] PA Work Phone: [facility] Work Phone: 03-14-2022 11:15-0400 Body weight 68.09 kg PA-C Alejandra [employer] PA Work Phone: [facility] Work Phone: 03-14-2022 11:15-0400 Diastolic blood pressure 86 mm[Hg] PA-C Alejandra [place] PA Work Phone: [facility] Work Phone: 03-14-2022 11:15-0400 Heart rate 62 /min PA-C Alejandra [employer] PA Work Phone: [facility] Work Phone: 03-14-2022 11:15-0400 Respiratory rate 16 /min PA-C Alejandra [place] PA Work Phone: [facility] Work Phone: 03-14-2022 11:15-0400 SaO2% (BldA) [Mass fraction] 98 % PA-C Alejandra [employer] PA Work Phone: [facility] Work Phone: 03-14-2022 11:15-0400 Systolic blood pressure 133 mm[Hg] PA-C Alejandra [employer] PA Work Phone: [facility] Work Phone: 02-06-2022 14:09-0400 Body height 162.56 cm PA-C [employer] PA Work Phone: [facility] Work Phone: 02-06-2022 14:09-0400 Body mass index (BMI) [Ratio] 25.3 kg/m2 PA-C [employer] PA Work Phone: [facility] Work Phone: 02-06-2022 14:09-0400 Body temperature 97.6 [degF] PA-C [employer] PA Work Phone: [facility] Work Phone: 02-06-2022 14:09-0400 Body weight 66.9 kg PA-C Alejandra [employer] PA Work Phone: [facility] Work Phone: 02-06-2022 14:09-0400 Diastolic blood pressure 81 mm[Hg] PA-C Alejandra [place] PA Work Phone: [facility] Work Phone: 02-06-2022 14:09-0400 Heart rate 65 /min PA-C Alejandra [employer] PA Work Phone: [facility] Work Phone: 02-06-2022 14:09-0400 Respiratory rate 15 /min PA-C Alejandra [place] PA Work Phone: [facility] Work Phone: 02-06-2022 14:09-0400 SaO2% (BldA) [Mass fraction] 97 % PA-C Alejandra [employer] PA Work Phone: [facility] Work Phone: 02-06-2022 14:09-0400 Systolic blood pressure 129 mm[Hg] PA-C Alejandra [employer] PA Work Phone: [facility] Work Phone: 01-29-2022 11:16-0400 Body mass index (BMI) [Ratio] 25.2 kg/m2 PA-C Alejandra [employer] PA Work Phone: [facility] Work Phone: 01-29-2022 11:16-0400 Body temperature 97.1 [degF] PA-C [employer] PA Work Phone: [facility] Work Phone: 01-29-2022 11:16-0400 Body weight 66.84 kg PA-C Alejandra [employer] PA Work Phone: [facility] Work Phone: 01-29-2022 11:16-0400 Diastolic blood pressure 82 mm[Hg] PA-C Alejandra [employer] PA Work Phone: [facility] Work Phone: 01-29-2022 11:16-0400 Heart rate 63 /min PA-C Alejandra [place] PA Work Phone: [facility] Work Phone: 01-29-2022 11:16-0400 Respiratory rate 16 /min PA-C Alejandra [place] PA Work Phone: [facility] Work Phone: 01-29-2022 11:16-0400 SaO2% (BldA) [Mass fraction] 97 % PA-C [employer] PA Work Phone: [facility] Work Phone: 01-29-2022 11:16-0400 Systolic blood pressure 131 mm[Hg] PA-C [employer] PA Work Phone: [facility] Work Phone: 01-04-2022 14:13-0400 Body mass index (BMI) [Ratio] 25.2 kg/m2 PA-C [employer] PA Work Phone: [facility] Work Phone: 01-04-2022 14:13-0400 Body temperature 97.6 [degF] PA-C [employer] PA Work Phone: [facility] Work Phone: 01-04-2022 14:13-0400 Body weight 66.79 kg PA-C [employer] PA Work Phone: [facility] Work Phone: 01-04-2022 14:13-0400 Diastolic blood pressure 78 mm[Hg] PA-C [employer] PA Work Phone: [facility] Work Phone: 01-04-2022 14:13-0400 Heart rate 55 /min PA-C [employer] PA Work Phone: [facility] Work Phone: 01-04-2022 14:13-0400 Respiratory rate 18 /min PA-C [employer] PA Work Phone: [facility] Work Phone: 01-04-2022 14:13-0400 SaO2% (BldA) [Mass fraction] 96 % PA-C Alejandra [place] PA Work Phone: [facility] Work Phone: 01-04-2022 14:13-0400 Systolic blood pressure 125 mm[Hg] PA-C Alejandra [place] PA Work Phone: [facility] Work Phone: 09-16-2020 09:40-0500 Body temperature 97.8 [degF] PA-C Alejandra [place] PA Work Phone: [facility] Work Phone: 09-16-2020 09:40-0500 Diastolic blood pressure 92 mm[Hg] PA-C Alejandra [place] PA Work Phone: [facility] Work Phone: 09-16-2020 09:40-0500 Heart rate 62 /min PA-C Alejandra [place] PA Work Phone: [facility] Work Phone: 09-16-2020 09:40-0500 Respiratory rate 14 /min PA-C Alejandra [place] PA Work Phone: [facility] Work Phone: 09-16-2020 09:40-0500 SaO2% (BldA) [Mass fraction] 100 % PA-C Alejandra [place] PA Work Phone: [facility] Work Phone: 09-16-2020 09:40-0500 Systolic blood pressure 152 mm[Hg] PA-C Alejandra [place] PA Work Phone: [facility] Work Phone: Encounters Encounter Date Encounter Type Care Provider Facility Start: 06-11-2025 ambulatory Alejandra [place] PA Facil ity:[facility] Start: 04-19-2025 End: 04-19-2025 Office outpatient visit 15 minutes Cipriano Galindo MD Work Phone: [facility] Comment on above: Sensorineural hearin g loss, asymmetrical (Primary Dx); Recurrent cholesteatoma of postmastoidectomy cavity of right side Start: 04-19-2025 End: 04-19-2025 ambulatory CIPRIANO GALINDO [facility] Ambulatory Start: 03-11-2025 End: 03-11-2025 ambulatory [employer] PA-C Work Phone: -Cat Scan [facility] Start: 03-11-2025 End: 03-11-2025 Patient encounter procedure Lynsey Strong PLAYGROUND DIRECTOR-C -Cat Scan [facility] Work Phone: Start: 03-11-2025 End: 03-11-2025 ambulatory [employer] PA Facility:[facility] Start: 02-25-[address] Sukh Zhu MD -[facility] Start: 02-25-2025 End: 02-25-2025 Patient encounter procedure Lynsey Strong PLAYGROUND DIRECTOR-C -[facility] Work Phone: Start: 02-25-2025 End: 02-25-2025 ambulatory [employer] PA-C Work Phone: -[facility] Start: 02-15-2025 End: 02-15-2025 ambulatory [employer] PA-C Work Phone: -Outpatient Breast Imaging Start: 02-15-2025 End: 02-15-[address] Fortunato Zhu MD -Outpatient Breast Imaging Work Phone: Start: 02-15-2025 End: 02-15-2025 ambulatory Fortunato Zhu Facility:[facility] Start: 01-13-2025 End: 01-13-2025 ambulatory [facility] Start: 01-07-2025 End: 01-07-2025 ambulatory Alejandra [employer] PA-C Work Phone: [facility] Work Phone: Start: 01-07-2025 End: 01-07-2025 Patient encounter procedure [employer] PA-C -Ultrasound [facility] Work Phone: Start: 01-07-2025 End: 01-07-2025 ambulatory 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 Fortunato Zhu MD -Outpatient Bone Densitometry Work Phone: Start: 09-23-2024 End: 09-23-2024 ambulatory Fortunato Zhu Facility:[facility] Start: 09-14-2024 End: 09-14-2024 ambulatory [facility] Facility:[facility] Start: 09-14-2024 End: 09-14-[address] Tacos Merino DO -[facility] Work Phone: Start: 09-09-[address] Sukh Zhu MD -[facility] Start: 09-09-2024 End: 09-09-[address] Fortunato Zhu MD -[facility] Work Phone: Start: 09-09-2024 End: 09-09-2024 ambulatory 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); Recurrent cholesteatoma of postmastoidectomy cavity of right side Start: 06-25-2023 End: 06-25-2023 Office outpatient visit 15 minutes Cipriano Galindo MD Work Phone: [facility] Comment on above: Referred otalgia of right ear (Primary Dx); Recurrent cholesteatoma of postmastoidectomy cavity of right side; Arthralgia of right temporomandibular joint Start: 02-12-2023 End: 02-12-2023 ambulatory CHRISTIANO[employer] PA Work Phone: [facility] Work Phone: Start: 02-12-2023 End: 02-12-2023 Patient encounter procedure PA-[employer] Work Phone: [facility] Work Phone: Start: 12-25-2022 End: 12-25-2022 Office outpatient visit 15 minutes Cipriano Galindo MD Work Phone: [facility] Comment on above: Complication associa мария with nervous system implant (Primary Dx); Recurrent cholesteatoma of postmastoidectomy cavity of right side; Mixed conductive and sensorineural hearing loss of right ear with restricted hearing of left ear; Sensorineural hearing loss, bilateral Start: 12-03-2022 End: 12-03-2022 Patient encounter procedure [employer] Work Phone: [facility] Work Phone: Start: 06-28-2022 End: 06-28-2022 Office outpatient visit 15 minutes Cipriano Galindo MD Work Phone: [facility] Comment on above: Mixed conductive and sensorineural hearing loss of right ear with restricted hearing of left ear (Primary Dx); Sensorineural hearing loss, bilateral; Recurrent cholesteatoma of postmastoidectomy cavity of right side Start: 04-15-2022 End: 04-15-2022 Emergency department patient visit RUSSEL ALVARADO Work Phone: [facility] Start: 03-14-2022 End: 03-14-2022 Patient encounter procedure RUSSEL ALVARADO Work Phone: [facility] Start: 03-14-2022 Registered Recurring RUSSEL ALVARADO Work Phone: [facility] Start: 02-06-2022 End: 02-06-2022 Patient encounter procedure RUSSEL ALVARADO Work Phone: [facility] Start: 01-29-2022 End: 01-29-2022 Patient encounter procedure RUSSEL ALVARADO Work Phone: [facility] Start: 01-26-2022 End: 01-26-2022 Patient encounter procedure RUSSEL ALVARADO Work Phone: [facility] Start: 01-04-2022 End: 01-04-2022 Patient encounter procedure RUSSEL ALVARADO Work Phone: [facility] Start: 08-04-2020 End: 08-05-2020 Patient encounter procedure NOEMI SALVADOR Facility:[facility] Procedures Date Procedure Procedure Detail Performing Clinician Start: 03-11-2025 CT of chest Alejandra rogers PA-C Work Phone: Start: 02-25-2025 Estimated creatinine clearance Alejandra Godwin PA-C Work Phone: Start: 02-15-2025 Screening mammography Annita Godwin PA-C Work Phone: Start: 01-07-2025 Complete ultrasound of kidneys and bladder Alejandra Godwin PA-C Work Phone: Start: 09-23-2024 Dual energy X-ray absorptiometry Alejandra ALVARADO-C Work Phone: Start: 09-09-2024 Measurement of renal function Alejandra ALVARADO-C Work Phone: Comment on above: GFR Calc Start: 02-12-2023 CT of chest PA-C Sean Godwin PA Work Phone: Start: 02-12-2023 Screening mammography P A-C Alejandra Godwin PA Work Phone: Start: 04-15-2022 Plain chest X-ray PA-C Alejandra Godwin PA Work Phone: Start: 02-06-2022 CT of chest PA-C Sean Godwin PA Work Phone: Start: 01-26-2022 Screening mammography P A-C Alejandra Godwin PA Work Phone: Start: 02-18-2020 Mammography Cipriano mortensen MD Work Phone: H/O: hysterectomy Hx of hysterectomy PA-C Alejandra Godwin PA Work Phone: Comment on above: 2003 H/O: surgery Hx of mastoidectomy PA-C Rina Godwin PA Work Phone: SARS-CoV-2 & FLU Ant igen (Rapid) PA-C Aleajndra Godwin PA Work Phone: Plan of Treatment Date Care Activity Detail Author Start: 10-18-2025 End: 10-18-2025 Patient encounter procedure 10/18/2025 10:00 AM EDT Office Visit [facility] [address] [place] [address] Cipriano Galindo MD [address] [place] [id number] [facility] Start: 04-19-2025 End: 04-19-2025 Patient encounter procedure 04/19/2025 9:15 AM EDT Office Visit [facility] [address] [place] [address] Cipriano Galindo MD [address] [facility] [address] [place] [address] [facility] Start: 03-22-2025 COVID-19 Vaccine ( season) COVID-19 Vaccine ( season) [facility] Start: 03-22-2025 Influenza vaccination Influenza Vaccine (#1) [facility] Start: 02-25-2025 [facility] Start: 08-11-2024 End: 08-11-2024 Patient encounter procedure 08/11/2024 10:15 AM EST Office Visit [facility] [address] [place] [address] Cipriano Galindo MD [address] [place] [id number] [facility] Start: 03-22-2024 COVID-19 Vaccine ( season) COVID-19 Vaccine ( season) [facility] Start: 03-22-2024 Influenza vaccination Influenza Vaccine (#1) [facility] Start: 12-24-2023 End: 12-24-2023 Patient encounter procedure 12/24/2023 2:15 PM EDT Office Visit [facility] [address] [place] [address] Cipriano Galindo MD [address] [facility] [address] [place] [address] [facility] Start: 06-25-2023 End: 06-25-2023 Patient encounter procedure 06/25/2023 1:15 PM EST Office Visit [facility] [address] [place] [address] Cipriano Galindo MD [address] [place] [address] [facility] Start: 2023 Fall risk assessment Falls Risk Assessment [facility] Start: 2023 Pneumococcal Vaccine: Age 65+ (1 - PCV) Pneumococcal Vaccine: Age 65+ (1 - PCV) [facility] Start: 03-22-2023 COVID-19 Vaccine ( season) COVID-19 Vaccine ( season) [facility] Start: 12-26-2022 End: 12-26-2022 Patient encounter procedure 12/26/2022 Office Visit Otolaryngology Cipriano Galindo MD [address] [place] [address] [facility] Start: 04-15-2022 [facility] Work Phone: Start: 02-17-2021 Screening for malignant neoplasm of breast Mammogram [facility] Start: 03-22-2020 [facility] Start: 2018 Respiratory Syncytial Virus Immunization: Risk, 60-74 Risk, or 75+ (1 - Risk 60-74 years 1-dose series) Respiratory Syncytial Virus Immunization: Risk, 60-74 Risk, or 75+ (1 - Risk 60-74 years 1-dose series) [facility] Start: 2008 Administration of herpes zoster vaccine Zoster Vaccines (1 of 2) [facility] Start: 2008 Screening for malignant neoplasm of colon Flexible sigmoidoscopy [facility] Start: 1998 Screening for malignant neoplasm of breast Mammogram [facility] Start: 1976 Hepatitis C screening [facility] Start: 1973 HIV screening HIV Screening [facility] Start: 1970 Depression screening using PHQ-9 (Patient Health Questionnaire 9) score [facility] Start: 1961 History and physical examination, annual for health maintenance [facility] Start: 1961 Medicare Wellness Visit Medicare [facility] Start: 1958 Screening for malignant neoplasm of cervix Pap Smear [facility] Start: 1958 Screening for malignant neoplasm of colon [facility] Start: 1958 Screening for osteoporosis Dexa Scan [facility] Start: 1958 Tetanus vaccination Tetanus: Every 10yrs [facility] CBC W Auto Different ial panel - Blood [facility] Work Phone: CBC W Auto Different ial panel - Blood [facility] CBC W Auto Different ial panel - Blood [facility] metabo lic 1999 panel - Serum or Plasma [facility] metabo lic 1999 panel - Serum or Plasma [facility] CT Chest [facility] DXA Bone [Mass/Area] Bone density [facility] Work Phone: MG Breast - bilatera l Screening [facility] Patient Education ED Viral Syndr ome (Adult) ED URI, Viral, No Abx (Adult) [facility] Work Phone: Patient referral [facility] Work Phone: [facility] Immunizations Immunization Date Immunization Notes Care Provider Fa [facility] 07-21-2024 influenza virus vaccine, unspecified formulation Cipriano Galindo MD Work Phone: [facility] 05-29-2023 influenza virus vaccine, unspecified formulation Cipriano Galindo MD Work Phone: [facility] 09-28-2020 Covid (Moderna) RUSSEL ALVARADO Work Phone: [facility] 09-01-2020 Christopher (Moderna) RUSSEL ALVARADO Work Phone: [facility] Payers Date Payer Category Payer Medicare [id number] 2022 Unknown [id number] 2020 Medicare [id number] 2020 Self-pay [id number] 2020 Unknown [id number] 2020 Unknown [id number] 1958 Unknown [id number] .594 1958 Unknown [id number] [id number] .594 1958 Unknown [id number] [id number] .651 1958 Unknown [id number] 2.16.840.1.584918.3.579.2 .651 1958 Unknown [id number] 2.16.840.1.383718.3.579.2 .903 1958 Unknown [id number] 2.16.840.1.340824.3.579.2 .903 1958 Unknown [id number] 2.16.840.1.722554.3.579.2 .903 Miscellaneous or Other [employer] L [id number] Unknown [facility] [id number] Unknown [id number] Unknown [id number] 2.16.840.1.285184.3.579.2 .462 Unknown [id number] 2.16.840.1.176834.3.579.2 .462 Unknown [id number] 2.16.840.1.094020.3.579.2 .462 Unknown [id number] 2.16.840.1.684357.3.579.2 .462 Unknown [id number] 2.16.840.1.101284.3.579.2 .462 Unknown [id number] 2.16.840.1.975412.3.579.2 .462 Unknown [id number] 2.16.840.1.991918.3.579.2 .462 Unknown [id number] 2.16.840.1.871339.3.579.2 .462 Unknown [id number] [id number] .462 Social History Date Type Detail Facility Start: 02-06-2022 End: 02-12-2023 Tobacco smoking status [facility] Unknown if ever smoked [facility] Start: 09-16-2020 Cigarettes [facility] Start: 1960 Sex Assigned At Female W [facility] Start: 06-28-2022 End: 10-06-2024 Tobacco smoking status PRIS Ex-smoker [facility] History of tobacco use Current smoker [facility] History of tobacco use Cigarette Smoker [facility] Start: 06-28-2022 End: 10-06-2024 Tobacco use and exposure Smokeless tobacco non-user [facility] Start: 06-28-2022 End: 04-19-2025 Alcohol intake Lifetime non-drinker (finding) [facility] Start: 1960 Sex Assigned At Not on file O [facility] Start: 06-18-2022 End: 06-28-2022 Exposure to SARS-CoV-2 (event) Not sure [facility] Start: 12-21-2022 End: 10-06-2024 History of Social function [facility] Start: 12-21-2022 End: 10-06-2024 Tobacco use panel [facility] Start: 10-04-2024 Sex Female (finding) [facility] Medical Equipment Procedure Code Equipment Code Equipment Origin al Text Equipment Identifier Dates Lumpectomy, breast, bilateral, after needle localization, with bilateral sentinel and SUTURE,LIGA CLIP MED [id number] FDA Start: 02-18-2020 Lumpectomy, breast, bilateral, after needle localization, with bilateral sentinel and SUTURE,LIGA CLIP MED LT200 FDA Start: 02-18-2020 Lumpectomy, breast, bilateral, after needle localization, with bilateral sentinel and SUTURE,LIGA CLIP SM LT-100 FDA Start: 02-18-2020 Lumpectomy, breast, bilateral, after needle localization, with bilateral sentinel and SUTURE,LIGA CLIP SM LT-100 FDA Start: 02-18-2020 Lumpectomy, breast, bilateral, after needle localization, with bilateral sentinel and SUTURE,LIGA CLIP MED LT200 FDA Start: 02-18-2020 Lumpectomy, breast, bilateral, after needle localization, with bilateral sentinel and SUTURE,LIGA CLIP MED LT200 FDA Start: 02-18-2020 Lumpectomy, breast, bilateral, after needle localization, with bilateral sentinel and SUTURE,LIGA CLIP SM LT-100 FDA Start: 02-18-2020 Lumpectomy, breast, bilateral, after needle localization, with bilateral sentinel and SUTURE,LIGA CLIP SM LT-100 FDA Start: 02-18-2020 Lumpectomy, breast, bilateral, after needle localization, with bilateral sentinel and SUTURE,LIGA CLIP MED LT200 FDA Start: 02-18-2020 Lumpectomy, breast, bilateral, after needle localization, with bilateral sentinel and SUTURE,LIGA CLIP MED LT200 FDA Start: 02-18-2020 Lumpectomy, breast, bilateral, after needle localization, with bilateral sentinel and SUTURE,LIGA CLIP SM LT-100 FDA Start: 02-18-2020 Lumpectomy, breast, bilateral, after needle localization, with bilateral sentinel and SUTURE,LIGA CLIP SM LT-100 FDA Start: 02-18-2020 Lumpectomy, breast, bilateral, after needle localization, with bilateral sentinel and SUTURE,LIGA CLIP MED LT200 FDA Start: 02-18-2020 Lumpectomy, breast, bilateral, after needle localization, with bilateral sentinel and SUTURE,LIGA CLIP MED LT200 FDA Start: 02-18-2020 Lumpectomy, breast, bilateral, after needle localization, with bilateral sentinel and SUTURE,LIGA CLIP SM LT-100 FDA Start: 02-18-2020 Lumpectomy, breast, bilateral, after needle localization, with bilateral sentinel and SUTURE,LIGA CLIP SM LT-100 FDA Start: 02-18-2020 Lumpectomy, breast, bilateral, after needle localization, with bilateral sentinel and SUTURE,LIGA CLIP MED LT200 FDA Start: 02-18-2020 Lumpectomy, breast, bilateral, after needle localization, with bilateral sentinel and SUTURE,LIGA CLIP MED LT200 FDA Start: 02-18-2020 Lumpectomy, breast, bilateral, after needle localization, with bilateral sentinel and SUTURE,LIGA CLIP SM LT-100 FDA Start: 02-18-2020 Lumpectomy, breast, bilateral, after needle localization, with bilateral sentinel and SUTURE,LIGA CLIP SM LT-100 FDA Start: 02-18-2020 Lumpectomy, breast, bilateral, after needle localization, with bilateral sentinel and SUTURE,LIGA CLIP MED LT200 FDA Start: 02-18-2020 Lumpectomy, breast, bilateral, after needle localization, with bilateral sentinel and SUTURE,LIGA CLIP MED LT200 FDA Start: 02-18-2020 Lumpectomy, breast, bilateral, after needle localization, with bilateral sentinel and SUTURE,LIGA CLIP SM LT-100 FDA Start: 02-18-2020 Lumpectomy, breast, bilateral, after needle localization, with bilateral sentinel and SUTURE,LIGA CLIP SM LT-100 FDA Start: 02-18-2020 Lumpectomy, breast, bilateral, after needle localization, with bilateral sentinel and SUTURE,LIGA CLIP MED LT200 FDA Start: 02-18-2020 Lumpectomy, breast, bilateral, after needle localization, with bilateral sentinel and SUTURE,LIGA CLIP MED LT200 FDA Start: 02-18-2020 Lumpectomy, breast, bilateral, after needle localization, with bilateral sentinel and SUTURE,LIGA CLIP SM LT-100 FDA Start: 02-18-2020 Lumpectomy, breast, bilateral, after needle localization, with bilateral sentinel and SUTURE,LIGA CLIP SM LT-100 FDA Start: 02-18-2020 Lumpectomy, breast, bilateral, after needle localization, with bilateral sentinel and SUTURE,LIGA CLIP MED LT200 FDA Start: 02-18-2020 Lumpectomy, breast, bilateral, after needle localization, with bilateral sentinel and SUTURE,LIGA CLIP MED LT200 FDA Start: 02-18-2020 Lumpectomy, breast, bilateral, after needle localization, with bilateral sentinel and SUTURE,LIGA CLIP SM LT-100 FDA Start: 02-18-2020 Lumpectomy, breast, bilateral, after needle localization, with bilateral sentinel and SUTURE,LIGA CLIP SM LT-100 FDA Start: 02-18-2020 BAHA PONTO BHX IMPLANT FDA Start: 12-05-2018 BAHA PONTO BHX IMPLANT FDA Start: 12-05-2018 BAHA PONTO BHX IMPLANT FDA Start: 12-05-2018 BAHA PONTO BHX IMPLANT FDA Start: 12-05-2018 BAHA PONTO BHX IMPLANT FDA Start: 12-05-2018 BAHA PONTO BHX IMPLANT FDA Start: 12-05-2018 BAHA PONTO BHX IMPLANT FDA Start: 12-05-2018 BAHA PONTO BHX IMPLANT FDA Start: 12-05-2018 Mental Status Date Assessment Result Facility 03-16-2024 Cognitive function Voice/Name [facility] Work Phone: 03-14-2022 Cognitive function Voice/Name [facility] Work Phone: Clinical Notes 06-28-2022 to 04-19-2025 Cipriano Galindo MD - 04/19/2025 9:36 AM Nadira Salinas MA - 04/19/2025 9:14 AM EDT Note Date & Type Note Facility 04-19-2025 Note [facility] [address] [facility] [address] [facility] [address] Dept: [phone] Cipriano Galindo MD [facility] 64 y.o. female Patient presents with a chief complaint of 6 mo fu Mastoid debridement (Est pt/) Temp 98.2 degrees F (36.8 degrees C) Ht 5' 4 Wt 70.2 kg (154 lb 12.8 oz) BMI 26.57 kg/m History of Presenting Illness: The patient/caregiver reports a history of complaint with the following features: She reports that she is doing well with no ear pain or drainage. Hearing remains reduced with hearing aid use on the left side. She had tried a bone anchored device in the past for the right ear, but this was not successful. She also has tried a CROS aid that did not seem to give benefit either. She does not seem to be hearing as well with her left aid. Review of systems covering 10 systems is reviewed and pertinent positives and negatives are noted as above. Past Medical History: Diagnosis Date Asthma Cancer (HCC) Diabetes (HCC) GERD (gastroesophageal reflux disease) Hearing loss Hyperlipidemia Hypertension Hypothyroidism Mood disorder Osteoarthritis Otitis media Tinnitus Current Medications[1] Allergies[2] Past Surgical History: Procedure Laterality Date BREAST LUMPECTOMY EXTERNAL EAR SURGERY EYE SURGERY HYSTERECTOMY MASTOID SURGERY Social History [3] History reviewed. No pertinent family history. PHYSICAL EXAM: The patient was examined today 10/07/2023 with findings as follows: CONSTITUTIONAL: General Appearance: well-appearing, nontoxic, alert, no acute distress Communication: normal voicing, hearing intact to spoken voice HEAD/FACE: Head: atraumatic, normocephalic, no lesions Facial Inspection: no lesions, healthy skin Facial Strength: motor strength normal, symmetric strength, symmetric movement EYES: Pupils: PERRLA, extra-ocular movements intact, no nystagmus, sclera white, no redness of eyes, no watering of eyes EARS: Bilateral External Ears: no pits, no tags Right External Ear: normally formed, no lesions, no mastoid tenderness Left External Ear: normally formed, no lesions, no mastoid tenderness Right External Auditory Canal: dry debris in mastoid cavity Left External Auditory Canal: normal, healthy skin, no obstructing cerumen, no discharge Right Tympanic Membrane: loss of normal landmarks, translucent Left Tympanic Membrane: normal landmarks, translucent Hearing: intact to spoken voice NECK: Neck: no masses, trachea midline, normal range of motion, no cysts or pits, no tenderness to palpation LYMPH NODES: Cervical: no palpable lymph node enlargement SKIN: General Appearance: no lesions, warm and dry, normal turgor, no bruising PSYCHIATRIC: Mood and affect: normal mood, normal affect DEBRIDEMENT OF MASTOID CAVITY (43112) PROCEDURE PERFORMED BY: Cipriano Galindo MD, MD PROCEDURE DATE: 02/10/2024 With the patient and/or caregiver's consent, the patient is positioned in the exam chair and an otic speculum placed into the right ear canal. Under binocular microscopic visualization there is noted to be squamous debris within the mastoid cavity. This is removed with a micro ear pick to reveal a healthy mastoid cavity. The tympanic membrane remnant is intact. Upon completion, boric acid powder is applied.The patient tolerated the procedure well without injury or bleeding, and is instructed to avoid water exposure the ear. Assessment and Plan: Her mastoid is debrided. She still has trouble hearing on the right side. She reports that hearing is not well rehabilitated with the left hearing aid. Prior audiometry showed poor speech discrimination bilaterally. Cochlear implant referral is again discussed. We have discussed that the patient may be a candidate for cochlear implantation. This is appropriate for patients with a greater than 80 dB hearing loss with speech discrimination less than 60 in both ears. The current level of hearing loss is unlikely to benefit from amplification. We have reviewed that an assessment for candidacy is required and referral to a specialty center for consideration would be necessary if this would be elected. The patient is to notify me if referral is desired. The patient and/or caregiver is able to state an understanding of these recommendations and is agreeable to the treatment plan. 1. Sensorineural hearing loss, asymmetrical 2. Recurrent cholesteatoma of postmastoidectomy cavity of right side Return in about 6 months (around 10/17/2025). The patient and/or caregiver is to notify the office if no improvement or worsening of symptoms is noted prior to the scheduled follow-up for sooner evaluation. The patient and/or caregiver is able to state an understanding of these recommendations and is agreeable to the treatment plan. --Cipriano Galindo MD on 04/19/2025 at 9:44 AM An electronic signature was used to authenticate this no (more content not included)... [facility] 04-19-2025 History of Present illness Narrative [facility] [address] [facility] [address] [facility] [address] Dept: [phone] MD Elana Kirk 64 y.o. female Patient presents with a chief complaint of 6 mo fu Mastoid debridement (Est pt/) Temp 98.2 F (36.8 C) Ht 5' 4 Wt 70.2 kg (154 lb 12.8 oz) BMI 26.57 kg/m History of Presenting Illness: The patient/caregiver reports a history of complaint with the following features: She reports that she is doing well with no ear pain or drainage. Hearing remains reduced with hearing aid use on the left side. She had tried a bone anchored device in the past for the right ear, but this was not successful. She also has tried a CROS aid that did not seem to give benefit either. She does not seem to be hearing as well with her left aid. Review of systems covering 10 systems is reviewed and pertinent positives and negatives are noted as above. Past Medical History: Diagnosis Date Asthma Cancer (HCC) Diabetes (HCC) GERD (gastroesophageal reflux disease) Hearing loss Hyperlipidemia Hypertension Hypothyroidism Mood disorder Osteoarthritis Otitis media Tinnitus Current Medications[1] Allergies[2] Past Surgical History: Procedure Laterality Date BREAST LUMPECTOMY EXTERNAL EAR SURGERY EYE SURGERY HYSTERECTOMY MASTOID SURGERY Social History [3] History reviewed. No pertinent family history. PHYSICAL EXAM: The patient was examined today 10/07/2023 with findings as follows: CONSTITUTIONAL: General Appearance: well-appearing, nontoxic, alert, no acute distress Communication: normal voicing, hearing intact to spoken voice HEAD/FACE: Head: atraumatic, normocephalic, no lesions Facial Inspection: no lesions, healthy skin Facial Strength: motor strength normal, symmetric strength, symmetric movement EYES: Pupils: PERRLA, extra-ocular movements intact, no nystagmus, sclera white, no redness of eyes, no watering of eyes EARS: Bilateral External Ears: no pits, no tags Right External Ear: normally formed, no lesions, no mastoid tenderness Left External Ear: normally formed, no lesions, no mastoid tenderness Right External Auditory Canal: dry debris in mastoid cavity Left External Auditory Canal: normal, healthy skin, no obstructing cerumen, no discharge Right Tympanic Membrane: loss of normal landmarks, translucent Left Tympanic Membrane: normal landmarks, translucent Hearing: intact to spoken voice NECK: Neck: no masses, trachea midline, normal range of motion, no cysts or pits, no tenderness to palpation LYMPH NODES: Cervical: no palpable lymph node enlargement SKIN: General Appearance: no lesions, warm and dry, normal turgor, no bruising PSYCHIATRIC: Mood and affect: normal mood, normal affect DEBRIDEMENT OF MASTOID CAVITY (93951) PROCEDURE PERFORMED BY: Cipriano Galindo MD, MD PROCEDURE DATE: 02/10/2024 With the patient and/or caregiver's consent, the patient is positioned in the exam chair and an otic speculum placed into the right ear canal. Under binocular microscopic visualization there is noted to be squamous debris within the mastoid cavity. This is removed with a micro ear pick to reveal a healthy mastoid cavity. The tympanic membrane remnant is intact. Upon completion, boric acid powder is applied.The patient tolerated the procedure well without injury or bleeding, and is instructed to avoid water exposure the ear. Assessment and Plan: Her mastoid is debrided. She still has trouble hearing on the right side. She reports that hearing is not well rehabilitated with the left hearing aid. Prior audiometry showed poor speech discrimination bilaterally. Cochlear implant referral is again discussed. We have discussed that the patient may be a candidate for cochlear implantation. This is appropriate for patients with a greater than 80 dB hearing loss with speech discrimination less than 60 in both ears. The current level of hearing loss is unlikely to benefit from amplification. We have reviewed that an assessment for candidacy is required and referral to a specialty center for consideration would be necessary if this would be elected. The patient is to notify me if referral is desired. The patient and/or caregiver is able to state an understanding of these recommendations and is agreeable to the treatment plan. 1. Sensorineural hearing loss, asymmetrical 2. Recurrent cholesteatoma of postmastoidectomy cavity of right side Return in about 6 months (around 10/17/2025). The patient and/or caregiver is to notify the office if no improvement or worsening of symptoms is noted prior to the scheduled follow-up for sooner evaluation. The patient and/or caregiver is able to state an understanding of these recommendations and is agreeable to the treatment plan. --Cipriano Galindo MD on 04/19/2025 at 9:44 AM An electronic signature was used to authenticate this note. [1] Current Outpatient Medications: anastrozole (ARIMIDEX) 1 mg tablet, Take 1 (one) tablet (1 mg total) by mouth daily ., Disp: , Rfl: calcium-vitamin D (OS-SIGRID +D) 500 mg-5 mcg (200 unit) per tablet, Take 1 (one) tablet by mouth ., Disp: , Rfl: cholecalciferol, vitamin D3, 1,000 unit tablet, Take 5 (five) tablets (5,000 Units total) by mouth daily ., Disp: , Rfl: FLUoxetine (PROZAC) 20 MG capsule, Take 2 (two) capsules (40 mg total) by mouth daily ., Disp: , Rfl: metoprolol succinate (TOPROL-XL) 50 MG 24 hr tablet, Take 1 (one) tablet (50 mg total) by mouth daily ., Disp: , Rfl: metoprolol tartrate (LOPRESSOR) 50 MG tablet, Take 1 (one) tablet (50 mg total) by mouth 2 (two) times a day ., Disp: , Rfl: omeprazole (PRILOSEC) 20 MG capsule, Take 1 (one) capsule (20 mg total) by mouth ., Disp: , Rfl: rosuvastatin (CRESTOR) 5 MG tablet, Take 1 (one) tablet (5 mg total) by mouth ., Disp: , Rfl: valsartan (DIOVAN) 80 MG tablet, Take 1 (one) tablet (80 mg total) by mouth ., Disp: , Rfl: denosumab (PROLIA) 60 mg/mL Syrg, 60 (sixty) mg . (Patient not taking: Reported on 10/06/2024 .), Disp: , Rfl: [2] No Known Allergies [3] Social History Socioeconomic History Marital status: Tobacco Use Smoking status: Former Types: Cigarettes Smokeless tobacco: Never Substance and Sexual Activity Alcohol use: Never Drug use: Never Review of Systems Constitutional: Negative. HENT: Positive for hearing loss. Eyes: Negative. Respiratory: Negative. Cardiovascular: Negative. Gastrointestinal: Negative. Endocrine: Negative. Genitourinary: Negative. Musculoskeletal: Negative. Skin: Negative. Allergic/Immunologic: Negative. Neurological: Negative. Hematological: Negative. Psychiatric/Behavioral: Negative. documented in this encounter [facility] 03-12-2025 Radiology Diagnostic study note [facility] Imaging Services [address] [place] [id number] Lung Screening MR#: [id number] Acct: [id number] Name: DAV WARE Rep #: [id number] : 1960 F 64 From: Dylan Glez MD PCP: Alejandra Godwin PA-C Status: REG C NADINE Study:Low Dose CT Lung Screening Date of Exam : 03/11/25 Exam# [id number] Ordering Dr: Lynsey Shaikh NP PROCEDURE: LOW DOSE CT LUNG SCREENING 03/11/2025 REASON FOR EXAM: LUNG CANCER SCREENING Former smoker. Patient has smoked for 48 years. TECHNIQUE: LOW DOSE CT LUNG SCREENING Coronal and Sagittal reconstruction series were provided. One or more dose reduction techniques were used (e.g., Automated exposure control, adjustment of the mA and/or kV according to patient size, use of iterative reconstruction technique). REFERENCE LINK: [employer] Lung-RADS RADIATION DOSE SUMMARY: CTDlvol: 2.01 mGy DLP: 63.94 mGycm COMPARISON: Prior study dated March 03, 2024. FINDINGS: PULMONARY NODULES: (Only nodules >3mm are reported) Nodules described below are on series 1 unless otherwise specified. Pulmonary Nodules: No suspicious pulmonary nodules seen. Hardware:None Lymph Nodes:None Heart and Vasculature:The heart is nonenlarged.Atherosclerotic calcifications ofthe thoracic aorta. Thoracic aorta and pulmonary arteries have normal contours; noncontrast technique limits evaluation. Coronary Artery Calcifications: Present Lungs and Airways: Stable scarring at the lung apices. Pleura:No pleural effusion. Upper Abdomen:Unremarkable Bones:Degenerative changes of the thoracic spine. CT/Low Dose CT Lung Screening IMPRESSION: No suspicious pulmonary nodules. Coronary artery calcification (CAC) is is present Lung-RADS Category: 2 BENIGN (BASED ON IMAGING FEATURES OR INDOLENT BEHAVIOR). RECOMMEND 12-MONTH SCREENING LDCT. Other Significant Findings: Reading Location: [id number] CC: DEIVN Srtong; RUSSEL Godwin ~ Type Inspector: Signed [facility] 02-25-2025 Evaluation note Diagnosis Onset Date Resolution Encounter for screening for malignant neoplasm of lung acute February 25, 2025 12:40pm Breast cancer, right chronic Augu 2024 12:40pm Osteopenia chronic February 25 12:40pm Encounter for education acute February 25, 2025 12:45pm Breast cancer, right chronic Augu 2024 12:45pm Osteopenia chronic February 25 12:45pm [facility] Work Phone: [phone]) 864-681506-20-2025 Radiology Diagnostic study note [facility] Imaging Services [address] [address] Kidney and Bladder MR#: [id number] Acct: [id number] Name: DAV WARE Rep #: [id number] : 1960 F 64 From: Ofelia Carlson MD PCP: Alejandra Godwin PA-C Status: [facility] Study:Kidney and Bladder Date of Exam: 0 01/07/25 Exam# [id number] Ordering Dr: Harris Godwin PA-C PROCEDURE: KIDNEY AND BLADDER 01/07/2025 REASON FOR EXAM: RENAL CALCIFICATION TECHNIQUE: KIDNEY AND BLADDER COMPARISON: None FINDINGS: Right kidney measures 10.9 x 4.9 x 5.1 cm. Cortex measures 1.2 cm. Upper pole stone measuring 5 x 5.3 mm, midpole stone measuring 4 x 4 x 3 mm and inferior pole stone 4 x 4 x 3 mm are noted. Slightly prominent renal pelvis measuring 1.5 cm. Left kidney measures 10.3 x 5.6 x 5.2 cm. Cortex measures 1.2 cm. Inferior pole cyst measuring 2.4 x 2.2 x 2.3 cm is noted. Inferior pole stone measuring 4 x 4 x 4 mm and midpole stone measuring 6 x 5 x 3mm are noted. No hydronephrosis. Urinary bladder volume is 442 cc. Wall measures 2.6 mm. Wall is unremarkable. Jets are not visualized. US/Kidney and Bladder IMPRESSION: Bilateral renal stones. Left renal cysts. Slightly prominent right renal pelvis. Further CT is advised if clinically warranted Reading Location[facility] CC: RUSSEL Godwin ~ Type Inspector: Signed [facility]03-18-2025 History of Present illness Narrative* Suzanne MeridaSheree - 10/06/2024 11:17 AM EDT Images from the original note were not included. [facility] [address] [facility] [address] [address] Name: Elana Ware : 1960 Date: 10/06/24 History & Purpose of Evaluation: Elana Ware was seen today for audiologic assessment at the request of Cipriano Galindo MD. Ms Ware's chief auditory complaint was bilatral hearing loss, worse in the right ear than the left ear. Onset was several years ago, with gradual progression. Ms. Ware denied any sudden or rapid change of hearing. Please see below for other pertinent case history information as reported by Ms Ware. Otologic Symptoms R L Noise Exposure Y N Medical Y N Hearing Loss [x] [x] Occupational-past [x] [] Hypertension [x] [] Tinnitus [x] [x] Recreational [] [x] Diabetes [] [x] Otalgia [] [] [] [x] Hypercholesterolemia [x] [] Otorrhea-occassional [x] [] Heart Disease [] [x] Aural Fullness [] [] Family History [] [x] Stroke [] [x] Meniere s Disease [] [] Cancer-(breast). No chemotherapy. Radiation ended in 2019 [x] [] Y N Sp./Lang. Skills Ear Surgery R L Vertigo [] [x] Appropriate [x] [] PE Tubes [] [] Dizziness [] [x] In Therapy [] [x] Mastoidectomy [x] [] Imbalance [] [x] Social Acoustic Neuroma [] [] Vestibular Rehab [] [x] Depression [x] [] Tympanoplasty [] [] Hearing aids: monaural (left) Oticon sysguwws-zi-elu-canal device with custom earmold Other: Results: Otoscopy: Performed by Dr. Galindo prior to testing. Puretone Air & Bone Conduction Audiometry: Left ear: hearing was within normal limits at 250 Hz, sloping to a profound sensorineural hearing loss at 4000 Hz and 8000 Hz. Right ear: mixed hearing loss, moderate at 250 Hz, sloping to profound at and above 750 Hz. Masked bone conduction thresholds could not be assessed at and above 1000 Hz due to high levels of masking noise and inability to reach effective masking. Speech Audiometry: Speech recognition thresholds were in good agreement with puretone responses. Word recognition was poor (18% in the right ear and 44% in the left ear) when assessed at a level above normal conversational loudness using 50-word lists of recorded male voice. Immittance Audiometry: Tympanometry revealed normal ear canal volume, high static compliance, and normal resting pressure (Jerger type Ad) in the left ear. Tympanometry could not be completed in the right ear due to inability to maintain a hermetic seal. Impression: Middle ear testing was consistent with a hypermobile tympanic membrane in the left ear, but could not be assessed in the right ear. Puretone and speech audiometry were consistent with an asymmetricalhearing loss, worse in the right ear than the left ear. Ms. Stevenss hearing loss is expected to interfere with communication in most listening situations. She currently uses one hearing aid in the left ear. She inquired about whether or not her hearing aid could be adjusted for better hearing. I amcertainly happy to do that for her, and an appointment was offered. However, she may also be a candidate for cochlear implantation. Both options were discussed. Recommendations: Medical follow up with Dr. Galindo. Further testing and/or re-evaluation at Dr. Galindo' discretion. Cochlear implant evaluation. Continued use of hearing aid in the meantime. Electronically Signed by: Sheree Barnett, CCC-A 10/06/24 11:17 AM Audiogram: documented in this [id number] NoteOPG [address]) [facility] [address] [facility] [address] Dept: [phone] Loc: [phone] Cipriano Galindo MD Elana Chaz 64 y.o. female Patient presents with a chief complaint of 6 month f/u ears/mastoid debriedment Temp 98.5 degrees F (36.9 degrees C) Ht 5' 4 Wt 69.4 kg (153 lb) BMI 26.26 kg/m History of Presenting Illness: The patient/caregiver reports a history of complaint with the following features: She reports that she is doing well with no ear pain or drainage. Hearing remains reduced with hearing aid use on the left side. She had tried a bone anchored device in the past for the right ear, but this was not successful. She also has tried a CROS aid that did not seem to give benefit either. She does not seem to be hearing as well with her left aid. Review of systems covering 10 systems is reviewed and pertinent positives and negatives are noted as above. Past Medical History: Diagnosis Date Asthma Cancer (HCC) Diabetes (HCC) GERD (gastroesophageal reflux disease) Hearing loss Hyperlipidemia Hypertension Hypothyroidism Mood disorder Osteoarthritis Otitis media Tinnitus Current Medications[1] Allergies[2] Past Surgical History: Procedure Laterality Date BREAST LUMPECTOMY EXTERNAL EAR SURGERY EYE SURGERY HYSTERECTOMY MASTOID SURGERY Social History [3] History reviewed. No pertinent family history. PHYSICAL EXAM: The patient was examined today 10/07/2023 with findings as follows: CONSTITUTIONAL: General Appearance: well-appearing, nontoxic, alert, no acute distress Communication: normal voicing, hearing intact to spoken voice HEAD/FACE: Head: atraumatic, normocephalic, no lesions Facial Inspection: no lesions, healthy skin Facial Strength: motor strength normal, symmetric strength, symmetric movement EYES: Pupils: PERRLA, extra-ocular movements intact, no nystagmus, sclera white, no redness of eyes, no watering of eyes EARS: Bilateral External Ears: no pits, no tags Right External Ear: normally formed, no lesions, no mastoid tenderness Left External Ear: normally formed, no lesions, no mastoid tenderness Right External Auditory Canal: dry debris in mastoid cavity Left External Auditory Canal: normal, healthy skin, no obstructing cerumen, no discharge Right Tympanic Membrane: loss of normal landmarks, translucent Left Tympanic Membrane: normal landmarks, translucent Hearing: intact to spoken voice NECK: Neck: no masses, trachea midline, normal range of motion, no cysts or pits, no tenderness to palpation LYMPH NODES: Cervical: no palpable lymph node enlargement SKIN: General Appearance: no lesions, warm and dry, normal turgor, no bruising PSYCHIATRIC: Mood and affect: normal mood, normal affect DEBRIDEMENT OF MASTOID CAVITY (69292) PROCEDURE PERFORMED BY: Cipriano Galindo MD, MD PROCEDURE DATE: 02/10/2024 With the patient and/or caregiver's consent, the patient is positioned in the exam chair and an otic speculum placed into the right ear canal. Under binocular microscopic visualization there is noted to be squamous debris within the mastoid cavity. This is removed with a micro ear pick to reveal a healthy mastoid cavity. The tympanic membrane remnant is intact. Upon completion, boric acid powder is applied.The patient tolerated the procedure well without injury or bleeding, and is instructed to avoid water exposure the ear. Assessment and Plan: Her mastoid is debrided. She feels that her hearing has declined. Audiometric testing is performed today and independently reviewed and interpreted. This shows severe sloping loss with poor speech discrimination worse on the right where there is a mixed loss. Tympanometry shows normal compliance consistent with normally ventilated middle ear space on the left. This has failed rehabilitation attempts in the past and at this time, consideration of cochlear implantation may be warranted. She will take this under consideration. 1. Mixed conductive and sensorineural hearing loss of right ear with restricted hearing of left ear Ambulatory referral to Audiology 2. Impaired auditory discrimination, bilateral 3. Recurrent cholesteatoma of postmastoidectomy cavity of right side Return in about 6 months (around 04/08/2025). The patient and/or caregiver is to notify the office if no improvement or worsening of symptoms is noted prior to the scheduled follow-up for sooner evaluation. The patient and/or caregiver is able to state an understanding of these recommendations and is agreeable to the treatment plan. --Cipriano Galindo MD on 10/06/2024 at 2:19 PM An electronic signature was used to authenticate this note. [1] Current Outpatient Medications: anastrozole (ARIMIDEX) 1 mg tablet, Take 1 (one) tablet (1 mg total) by mouth daily ., Disp: , Rfl: calcium-vitamin D (OS- (more content not included)...[facility] 10-06-2024 History of Present illness Narrative* Cipriano Galindo MD - 10/06/2024 11:03 AM EDT [facility] [address] ([address]) [facility] [address] OFF[address] [facility] [address] Dept: [phone] Loc: [phone] Cipriano Galindo MD Elana Buitragoer 64 y.o. female Patient presents with a chief complaint of 6 month f/u ears/mastoid debriedment Temp 98.5 F (36.9 C) Ht 5' 4 Wt 69.4 kg (153 lb) BMI 26.26 kg/m History of Presenting Illness: The patient/caregiver reports a history of complaint with the following features: She reports that she is doing well with no ear pain or drainage. Hearing remains reduced with hearing aid use on the left side. She had tried a bone anchored device in the past for the right ear, butthis was not successful. She also has tried a CROS aid that did not seem to give benefit either. She does not seem to be hearing as well with her left aid. Review of systems covering 10 systems is reviewed and pertinent positives and negatives are noted as above. Past Medical History: Diagnosis Date Asthma Cancer (HCC) Diabetes (HCC) GERD (gastroesophageal reflux disease) Hearing loss Hyperlipidemia Hypertension Hypothyroidism Mood disorder Osteoarthritis Otitis media Tinnitus Current Medications[1] Allergies[2] Past Surgical History: Procedure Laterality Date BREAST LUMPECTOMY EXTERNAL EAR SURGERY EYE SURGERY HYSTERECTOMY MASTOID SURGERY Social History [3] History reviewed. No pertinent family history. PHYSICAL EXAM: The patient was examined today 10/07/2023 with findings as follows: CONSTITUTIONAL: General Appearance: well-appearing, nontoxic, alert, no acute distress Communication: normal voicing, hearing intact to spoken voice HEAD/FACE: Head: atraumatic, normocephalic, no lesions Facial Inspection: no lesions, healthy skin Facial Strength: motor strength normal, symmetric strength, symmetric movement EYES: Pupils: PERRLA, extra-ocular movements intact, no nystagmus, sclera white, no redness of eyes, no watering of eyes EARS: Bilateral External Ears: no pits, no tags Right External Ear: normally formed, no lesions, no mastoid tenderness Left External Ear: normally formed, no lesions, no mastoid tenderness Right External Auditory Canal: dry debris in mastoid cavity Left External Auditory Canal: normal, healthy skin, no obstructing cerumen, no discharge Right Tympanic Membrane: loss of normal landmarks, translucent Left Tympanic Membrane: normal landmarks, translucent Hearing: intact to spoken voice NECK: Neck: no masses, trachea midline, normal range of motion, no cysts or pits, no tenderness to palpation LYMPH NODES: Cervical: no palpable lymph node enlargement SKIN: General Appearance: no lesions, warm and dry, normal turgor, no bruising PSYCHIATRIC: Mood and affect: normal mood, normal affect DEBRIDEMENT OF MASTOID CAVITY (96650) PROCEDURE PERFORMED BY: Cipriano Galindo MD, MD PROCEDURE DATE: 02/10/2024 With the patient and/or caregiver's consent, the patient is positioned in the exam chair and an otic speculum placed into the right ear canal. Under binocular microscopic visualization there is notedto be squamous debris within the mastoid cavity. This is removed with a micro ear pick to reveal a healthy mastoid cavity. The tympanic membrane remnant is intact. Upon completion, boric acid powder is applied.The patient tolerated the procedure well without injury or bleeding, and is instructed toavoid water exposure the ear. Assessment and Plan: Her mastoid is debrided. She feels that her hearing has declined. Audiometric testing is performed today and independently reviewed and interpreted. This shows severe sloping loss with poor speech discrimination worse on the right where there is a mixed loss. Tympanometry shows normal compliance consistent with normally ventilated middle ear space on the left. This has failed rehabilitation attempts in the past and at this time, consideration of cochlear implantation may be warranted. She will take this under consideration. 1. Mixed conductive and sensorineural hearing loss of right ear with restricted hearing of left earAmbulatory referral to Audiology 2. Impaired auditory discrimination, bilateral 3. Recurrent cholesteatoma of postmastoidectomy cavity of right side Return in about 6 months (around 04/08/2025). The patient and/or caregiver is to notify the office if no improvement or worsening of symptoms is noted prior to the scheduled follow-up for sooner evaluation. The patient and/or caregiver is able to state an understanding of these recommendations and is agreeable to the treatment plan. --Cipriano Galindo MD on 10/06/2024 at 2:19 PM An electronic signature was used to authenticate this note. [1] Current Outpatient Medications: anastrozole (ARIMIDEX) 1 mg tablet, Take 1 (one) tablet (1 mg total) by mouth daily ., Disp: , Rfl: calcium-vitamin D (OS-SIGRID +D) 500 mg-5 mcg (200 unit) per tablet, Take 1 (one) tablet by mouth ., Disp: , Rfl: cholecalciferol, vitamin D3, 1,000 unit tablet, Take 5 (five) tablets (5,000 Units total) by mouth daily ., Disp: , Rfl: FLUoxetine (PROZAC) 20 MG capsule, Take 2 (two) capsules (40 mg total) by mouth daily ., Disp: , Rfl: metoprolol tartrate (LOPRESSOR) 50 MG tablet, Take 1 (one) tablet (50 mg total) by mouth 2 (two) times a day ., Disp: , Rfl: omeprazole (PRILOSEC) 20 MG capsule, Take 1 (one) capsule (20 mg total) by mouth ., Disp: , Rfl: rosuvastatin (CRESTOR) 5 MG tablet, Take 1 (one) tablet (5 mg total) by mouth ., Disp: , Rfl: valsartan (DIOVAN) 80 MG tablet, Take 1 (one) tablet (80 mg total) by mouth ., Disp: , Rfl: denosumab (PROLIA) 60 mg/mL Syrg, 60 (sixty) mg . (Patient not taking: Reported on 10/06/2024 .), Disp: , Rfl: [2] No Known Allergies [3] Social History Socioeconomic History Marital status: Tobacco Use Smoking status: Former Types: Cigarettes Smokeless tobacco: Never Substance and Sexual Activity Alcohol use: Never Drug use: Never * Bianca Huffman LPN - 10/06/2024 10:54 AM EDT Review of Systems Constitutional: Negative. HENT: Positive for hearing loss and tinnitus. Negative for congestion, dental problem, drooling, ear discharge, ear pain, facial swelling, mouth sores, nosebleeds, postnasal drip, rhinorrhea, sinus pressure, sinus pain, sneezing, sore throat, trouble swallowing and voice change. Gastrointestinal: Negative. documented in this [id number] Evaluation note* Diagnosis Onset Date Resolution Status Admit Date Breast cancer, right chronic Febr uary 2024 9:23am [facility] Work Phone: [phone]) 884-146402-19-2025 Evaluation note* Diagnosis Onset Date Resolution Status Admit Date Breast cancer, right chronic Febr uary 2024 9:08am Encounter for education acute F ebruary 2024 9:15am Breast cancer, right chronic Febr uary 2024 9:15am Osteopenia chronic September 09, 2024 9:15am Breast cancer, right chronic Febr uary 2024 9:23am [facility] Work Phone: 1(678) 905-441507-22-2024 History of Present illness Narrative* Cipriano Galindo MD - 02/10/2024 9:56 AM EDT [facility] [address] [facility] [place] [address] [facility] [address] Dept: [phone] Cipriano Galindo MD [facility] 63 y.o. female Patient presents with a chief complaint of 6MO F/U MASTOID DEBRIDEMENT Ht 5' 4 Wt 65.9 kg (145 lb 4.8 oz) BMI 24.94 kg/m History of Presenting Illness: The patient/caregiver reports a history of complaint with the following features: She reports that her right mastoid cavity was draining 2 weeks ago after trial of a CROS hearing aid. This resolved with a course of Ciprodex ear drops. Drainage has been a factor reducing hearing aid use on the right ear in the past as well. She did not do well with a bone anchored device in the past as this did not help with her hearing. Review of systems covering 10 systems is reviewed and pertinent positives and negatives are noted as above. Past Medical History: Diagnosis Date Asthma Cancer (HCC) Diabetes (HCC) GERD (gastroesophageal reflux disease) Hearing loss Hyperlipidemia Hypertension Hypothyroidism Mood disorder (HCC) Osteoarthritis Otitis media Tinnitus Current Outpatient Medications: anastrozole (ARIMIDEX) 1 mg tablet, Take 1 (one) tablet (1 mg total) by mouth daily ., Disp: , Rfl: calcium-vitamin D (OS-SIGRID +D) 500 mg-5 mcg (200 unit) per tablet, Take 1 (one) tablet by mouth ., Disp: , Rfl: cholecalciferol, vitamin D3, 1,000 unit tablet, Take 5 (five) tablets (5,000 Units total) by mouth daily ., Disp: , Rfl: denosumab (PROLIA) 60 mg/mL Syrg, 60 (sixty) mg ., Disp: , Rfl: FLUoxetine (PROZAC) 20 MG capsule, Take 2 (two) capsules (40 mg total) by mouth daily ., Disp: , Rfl: metoprolol tartrate (LOPRESSOR) 50 MG tablet, Take 1 (one) tablet (50 mg total) by mouth 2 (two) times a day ., Disp: , Rfl: omeprazole (PRILOSEC) 20 MG capsule, Take 1 (one) capsule (20 mg total) by mouth ., Disp: , Rfl: rosuvastatin (CRESTOR) 5 MG tablet, Take 1 (one) tablet (5 mg total) by mouth ., Disp: , Rfl: valsartan (DIOVAN) 80 MG tablet, Take 1 (one) tablet (80 mg total) by mouth ., Disp: , Rfl: ketorolac (ACULAR) 0.5 % ophthalmic solution, INSTILL ONE DROP into surgical eye FOUR TIMES DAILY, STARTING DAY of surgery immediatley following surgery., Disp: , Rfl: ofloxacin (OCUFLOX) 0.3 % ophthalmic solution, INSTILL ONE DROP FOUR TIMES DAILY into surgical eye STARTING TWO DAYS prior TO surgery, Disp: , Rfl: No Known Allergies Past Surgical History: Procedure Laterality Date BREAST LUMPECTOMY EXTERNAL EAR SURGERY EYE SURGERY HYSTERECTOMY MASTOID SURGERY Social History Socioeconomic History Marital status: Tobacco Use Smoking status: Former Current packs/day: 0.00 Types: Cigarettes Smokeless tobacco: Never Substance and Sexual Activity Alcohol use: Never Drug use: Never History reviewed. No pertinent family history. PHYSICAL EXAM: The patient was examined today 02/10/2024 with findings as follows: CONSTITUTIONAL: General Appearance: well-appearing, nontoxic, alert, no acute distress Communication: normal voicing, hearing intact to spoken voice HEAD/FACE: Head: atraumatic, normocephalic, no lesions Facial Inspection: no lesions, healthy skin Facial Strength: motor strength normal, symmetric strength, symmetric movement EYES: Pupils: PERRLA, extra-ocular movements intact, no nystagmus, sclera white, no redness of eyes, no watering of eyes EARS: Bilateral External Ears: no pits, no tags Right External Ear: normally formed, no lesions, no mastoid tenderness Left External Ear: normally formed, no lesions, no mastoid tenderness Right External Auditory Canal: moist debris in mastoid cavity Left External Auditory Canal: normal, healthy skin, no obstructing cerumen, no discharge Right Tympanic Membrane: loss of normal landmarks, translucent Left Tympanic Membrane: normal landmarks, translucent Hearing: intact to spoken voice NECK: Neck: no masses, trachea midline, normal range of motion, no cysts or pits, no tenderness to palpation LYMPH NODES: Cervical: no palpable lymph node enlargement SKIN: General Appearance: no lesions, warm and dry, normal turgor, no bruising PSYCHIATRIC: Mood and affect: normal mood, normal affect DEBRIDEMENT OF MASTOID CAVITY (44220) PROCEDURE PERFORMED BY: Cipriano Galindo MD, MD PROCEDURE DATE: 02/10/2024 With the patient and/or caregiver's consent, the patient is positioned in the exam chair and an otic speculum placed into the right ear canal. Under binocular microscopic visualization there is notedto be squamous debris within the mastoid cavity. This is removed with a micro ear pick and a # 5 suction as needed to reveal a healthy mastoid cavity. The tympanic membrane remnant is intact. Upon completion, boric acid powder is applied.The patient tolerated the procedure well without injury or bleeding, and is instructed to avoid water exposure the ear. Assessment and Plan: She has some moist debris of the mastoid cavity. This is cleaned today. Boric acid is applied. She does not have the severe tenderness today that she had last time. Periodic use of the Ciprodex is advised for occasional drainage. We have discussed that this may be due to moisture accumulation from the occlusion of the hearing aid. An open fit aid, or CROS device may reduce this tendency. She did not benefit form a bone anchored device in the past, and so a CROS aid would be the only other option at this time. 1. Mixed conductive and sensorineural hearing loss of right ear with restricted hearing of left ear 2. Recurrent cholesteatoma of postmastoidectomy cavity of right side Return in about 6 months (around 08/12/2024). The patient and/or caregiver is to notify the office if no improvement or worsening of symptoms is noted prior to the scheduled follow-up for sooner evaluation. The patient and/or caregiver is able to state an understanding of these recommendations and is agreeable to the treatment plan. --Cipriano Galindo MD on 02/10/2024 at 10:08 AM An electronic signature was used to authenticate this note. * Mattie Thorpe MA - 02/10/2024 9:30 AM EDT Review of Systems Constitutional: Negative. HENT: Positive for ear discharge, hearing loss and tinnitus. Eyes: Negative. Respiratory: Negative. Cardiovascular: Negative. Gastrointestinal: Negative. Endocrine: Negative. Genitourinary: Negative. Musculoskeletal: Negative. Skin: Negative. Allergic/Immunologic: Negative. Neurological: Negative. Hematological: Negative. Psychiatric/Behavioral: Negative. documented in this [id number] History of Present illness Narrative* Cipriano Galindo MD - 06/25/2023 1:16 PM EST [facility] [address] [facility] [place] [address] [facility] [address] Dept: [phone] MD Elana Kirk 63 y.o. female Patient presents with a chief complaint of Follow-up (6 month follow up mastoid debridement ) Temp 97.4 F (36.3 C) (Temporal) Ht 5' 4 Wt 69.6 kg (153 lb 8 oz) BMI 26.35 kg/m History of Presenting Illness: The patient/caregiver reports a history of complaint with the following features: She presents for cleaning of her right mastoid. This has been draining the last 2 days. This feels full with pressure, but is not painful. She denies any water exposure or recent illness. This has occurred periodically, but is infrequent. She reports that she does not use her PONTO device much as it did not give much improved speech understanding. Review of systems covering 10 systems is reviewed and pertinent positives and negatives are noted as above. Past Medical History: Diagnosis Date Asthma Cancer (HCC) Diabetes (HCC) GERD (gastroesophageal reflux disease) Hearing loss Hyperlipidemia Hypertension Hypothyroidism Mood disorder (HCC) Osteoarthritis Current Outpatient Medications: anastrozole (ARIMIDEX) 1 mg tablet, Take 1 (one) tablet (1 mg total) by mouth daily ., Disp: , Rfl: calcium-vitamin D (OS-SIGRID +D) 500 mg-5 mcg (200 unit) per tablet, Take 1 (one) tablet by mouth ., Disp: , Rfl: cholecalciferol, vitamin D3, 1,000 unit tablet, Take 5 (five) tablets (5,000 Units total) by mouth daily ., Disp: , Rfl: denosumab (PROLIA) 60 mg/mL Syrg, 60 (sixty) mg ., Disp: , Rfl: FLUoxetine (PROZAC) 20 MG capsule, Take 2 (two) capsules (40 mg total) by mouth daily ., Disp: , Rfl: ketorolac (ACULAR) 0.5 % ophthalmic solution, INSTILL ONE DROP into surgical eye FOUR TIMES DAILY, STARTING DAY of surgery immediatley following surgery., Disp: , Rfl: metoprolol tartrate (LOPRESSOR) 50 MG tablet, Take 1 (one) tablet (50 mg total) by mouth 2 (two) times a day ., Disp: , Rfl: ofloxacin (OCUFLOX) 0.3 % ophthalmic solution, INSTILL ONE DROP FOUR TIMES DAILY into surgical eye STARTING TWO DAYS prior TO surgery, Disp: , Rfl: omeprazole (PRILOSEC) 20 MG capsule, Take 1 (one) capsule (20 mg total) by mouth ., Disp: , Rfl: rosuvastatin (CRESTOR) 5 MG tablet, Take 1 (one) tablet (5 mg total) by mouth ., Disp: , Rfl: valsartan (DIOVAN) 80 MG tablet, Take 1 (one) tablet (80 mg total) by mouth ., Disp: , Rfl: No Known Allergies Past Surgical History: Procedure Laterality Date BREAST LUMPECTOMY EXTERNAL EAR SURGERY HYSTERECTOMY MASTOID SURGERY Social History Socioeconomic History Marital status: Tobacco Use Smoking status: Former Types: Cigarettes Smokeless tobacco: Never Substance and Sexual Activity Alcohol use: Never Drug use: Never History reviewed. No pertinent family history. PHYSICAL EXAM: The patient was examined today 06/25/2023 with findings as follows: CONSTITUTIONAL: General Appearance: well-appearing, nontoxic, alert, no acute distress Communication: reduced understanding at normal conversational tones, normal voicing, speech intelligible, hearing with hearing aids HEAD/FACE: Head: atraumatic, normocephalic, no lesions, healed PONTO abutment site right scalp Facial Inspection: no lesions, healthy skin Facial Strength: motor strength normal, symmetric strength, symmetric movement Sinuses: no sinus tenderness Salivary Glands: no enlargements of parotid glands, no tenderness of parotid glands, no masses of parotid glands, clear salivary flow on palpation from Stensen's ducts, no duct stones of Stensen's duct, no enlargement of submandibular glands, no tenderness of submandibular glands, no masses of subma ndibular glands, clear salivary flow from Kensett's ducts, no stones of Tomasa's ducts Temporomandibular Joint: no crepitus with motion, no tenderness on palpation, no trismus, motion symmetric EYES: Pupils: PERRLA, extra-ocular movements intact, no nystagmus, sclera white, no redness of eyes, no watering of eyes EARS: Bilateral External Ears: no pits, no tags Right External Ear: normally formed, no lesions, no mastoid tenderness Left External Ear: normally formed, no lesions, no mastoid tenderness Right External Auditory Canal: mastoid cavity with superior moist debris, suctioned clear Left External Auditory Canal: normal, healthy skin, no obstructing cerumen, no discharge Right Tympanic Membrane: loss of normal landmarks, translucent, retracted Left Tympanic Membrane: normal landmarks, translucent, mobile to pneumatic otoscopy, no perforation Hearing: intact to spoken voice, intact to finger rub NECK: Neck: no masses, trachea midline, normal range of motion, no cysts or pits, no tenderness to palpation Thyroid: normal thyroid, no enlargement, no tenderness, no nodules LYMPH NODES: Cervical: no palpable lymph node enlargement SKIN: General Appearance: no lesions, warm and dry, normal turgor, no bruising NEUROLOGICAL SYSTEM: Orientation: oriented to time, oriented to place, oriented to person Cranial Nerves: Cranial Nerves II-XII intact, normal facial movement PSYCHIATRIC: Mood and affect: normal mood, anxious DEBRIDEMENT OF MASTOID CAVITY (11224) PROCEDURE PERFORMED BY: Cipriano Galindo MD PROCEDURE DATE: 06/25/2023 With the patient and/or caregiver's consent, the patient is positioned in the exam chair and an otic speculum placed into the right ear canal. Under binocular microscopic visualization there is notedto be squamous debris within the mastoid cavity. This is removed with a micro ear pick and a # 5 suction as needed to reveal a healthy mastoid cavity. The tympanic membrane remnant is intact. Upon completion, boric acid powder is applied.The patient tolerated the procedure well without injury or bleeding, and is instructed to avoid water exposure the ear. Assessment and Plan: She presents for routine mastoid cleaning and this is performed today. She complaints of pressure and is tender to the otic speculum anteriorly over the TMJ joint. Although there is a little moisturein the mastoid, this is not in the area that she is tender and I suspect this is an unrelated finding. The patient and/or caregiver is advised on symptom management with the use of over the counter medication of ibuprofen 600 mg every 8 hours for three days if there is no medical contraindication, theavoidance of gum chewing, a soft diet, warm compresses to the area, gentle stretching of the jaw, and stress management. I have discussed that if this should fail to give adequate relief, consideration for dental evaluation and fitting of a bite block may be considered. The patient and/or caregiveris to notify me for any acute worsening or failure to relieve symptoms prior to scheduled follow-up. The patient and/or caregiver is able to state an understanding of these recommendations and is agre eable to the treatment plan. 1. Referred otalgia of right ear 2. Recurrent cholesteatoma of postmastoidectomy cavity of right side 3. Arthralgia of right temporomandibular joint Return in about 6 months (around 12/25/2023). The patient and/or caregiver is to notify the office if no improvement or worsening of symptoms is noted prior to the scheduled follow-up for sooner evaluation. The patient and/or caregiver is able to state an understanding of these recommendations and is agreeable to the treatment plan. --Cipriano Galindo MD on 06/25/2023 at 1:36 PM An electronic signature was used to authenticate this note. * Lavinia Orr MA - 06/25/2023 1:10 PM EST Review of Systems Constitutional: Negative. HENT: Positive for ear discharge, hearing loss, sinus pressure and tinnitus. Eyes: Negative. Respiratory: Negative. Cardiovascular: Negative. Gastrointestinal: Negative. Endocrine: Negative. Genitourinary: Negative. Musculoskeletal: Negative. Skin: Negative. Allergic/Immunologic: Negative. Neurological: Negative. Hematological: Negative. Psychiatric/Behavioral: Negative. documented in this [id number] History of Present illness Narrative* Cipriano Galindo MD - 12/25/2022 1:11 PM EDT [facility] [address] [facility] [place] [address] [facility] [address] Dept: [phone] MD Elana Kirk 62 y.o. female Patient presents with a chief complaint of Follow-up (Possible removal of abutment on right scalp) Temp 98.9 F (37.2 C) Ht 5' 4 Wt 69.9 kg (154 lb) BMI 26.43 kg/m History of Presenting Illness: The patient/caregiver reports a history of complaint with the following features: She presents for removal of her PONTO abutment. She has not been using her hearing device as it hasnot helped with her hearing. She finds that the abutment caues her mild discomfort and irritation. Review of systems covering 10 systems is reviewed and pertinent positives and negatives are noted as above. Past Medical History: Diagnosis Date Asthma Cancer (HCC) Diabetes (HCC) GERD (gastroesophageal reflux disease) Hearing loss Hyperlipidemia Hypertension Hypothyroidism Mood disorder (HCC) Osteoarthritis Current Outpatient Medications: anastrozole (ARIMIDEX) 1 mg tablet, Take 1 (one) tablet (1 mg total) by mouth daily ., Disp: , Rfl: calcium-vitamin D (OS-SIGRID +D) 500 mg-5 mcg (200 unit) per tablet, Take 1 (one) tablet by mouth ., Disp: , Rfl: cholecalciferol, vitamin D3, 1,000 unit tablet, Take 5 (five) tablets (5,000 Units total) by mouth daily ., Disp: , Rfl: denosumab (PROLIA) 60 mg/mL Syrg, 60 (sixty) mg ., Disp: , Rfl: FLUoxetine (PROZAC) 20 MG capsule, Take 2 (two) capsules (40 mg total) by mouth daily ., Disp: , Rfl: ketorolac (ACULAR) 0.5 % ophthalmic solution, INSTILL ONE DROP into surgical eye FOUR TIMES DAILY, STARTING DAY of surgery immediatley following surgery., Disp: , Rfl: metoprolol tartrate (LOPRESSOR) 50 MG tablet, Take 1 (one) tablet (50 mg total) by mouth 2 (two) times a day ., Disp: , Rfl: ofloxacin (OCUFLOX) 0.3 % ophthalmic solution, INSTILL ONE DROP FOUR TIMES DAILY into surgical eye STARTING TWO DAYS prior TO surgery, Disp: , Rfl: omeprazole (PRILOSEC) 20 MG capsule, Take 1 (one) capsule (20 mg total) by mouth ., Disp: , Rfl: rosuvastatin (CRESTOR) 5 MG tablet, Take 1 (one) tablet (5 mg total) by mouth ., Disp: , Rfl: valsartan (DIOVAN) 80 MG tablet, Take 1 (one) tablet (80 mg total) by mouth ., Disp: , Rfl: No Known Allergies Past Surgical History: Procedure Laterality Date BREAST LUMPECTOMY EXTERNAL EAR SURGERY HYSTERECTOMY MASTOID SURGERY Social History Socioeconomic History Marital status: Tobacco Use Smoking status: Former Types: Cigarettes Smokeless tobacco: Never Substance and Sexual Activity Alcohol use: Never Drug use: Never History reviewed. No pertinent family history. PHYSICAL EXAM: The patient was examined today 12/25/2022 with findings as follows: CONSTITUTIONAL: General Appearance: well-appearing, nontoxic, alert, no acute distress Communication: normal voicing, hearing intact to spoken voice HEAD/FACE: Head: atraumatic, normocephalic, no lesions, PONTO abutment left scalp intact Facial Inspection: no lesions, healthy skin Facial Strength: motor strength normal, symmetric strength, symmetric movement EYES: Pupils: PERRLA, extra-ocular movements intact, no nystagmus, sclera white, no redness of eyes, no watering of eyes EARS: Bilateral External Ears: no pits, no tags Right External Ear: normally formed, no lesions, no mastoid tenderness Left External Ear: normally formed, no lesions, no mastoid tenderness Right External Auditory Canal: healthy mastoid cavity with debris Left External Auditory Canal: normal, healthy skin, no obstructing cerumen, no discharge Right Tympanic Membrane: loss of normal landmarks, retracted Left Tympanic Membrane: normal landmarks, translucent, tube in place and patent Hearing: intact to spoken voice NECK: Neck: no masses, trachea midline, normal range of motion, no cysts or pits, no tenderness to palpation LYMPH NODES: Cervical: no palpable lymph node enlargement SKIN: General Appearance: no lesions, warm and dry, normal turgor, no bruising PSYCHIATRIC: Mood and affect: normal mood, normal affect DEBRIDEMENT OF MASTOID CAVITY (64792) PROCEDURE PERFORMED BY: Cipriano Galindo MD PROCEDURE DATE: 12/25/2022 With the patient and/or caregiver's consent, the patient is positioned in the exam chair and an otic speculum placed into the right ear canal. Under binocular microscopic visualization there is notedto be squamous debris within the mastoid cavity. This is removed with a micro ear pick and a # 5 suction as needed to reveal a healthy mastoid cavity. The tympanic membrane remnant is intact. Upon completion, no topical agent is applied.The patient tolerated the procedure well without injury or bleeding, and is instructed to avoid water exposure the ear. She requests removal of her PONTO abutment. The central set screw is removed and the superstructurereleased and withdrawn. The osseointegrated portion is left to heal over by secondary intention. She declines to have a insert placed to preserve the threads for future use although this is offered her today. Assessment and Plan: She is doing well. Her mastoid is debrided and the PONTO abutment removed as this was not giving her a good hearing benefit and has become an irritant. The patient and/or caregiver is advised on the avoidance of water exposure to the ear and mechanical trauma such as the use of cotton tipped swabs or the insertion of objects into the ear is advised. The patient and/or caregiver is to notify the office if no improvement or worsening of symptoms is noted prior to the scheduled follow-up for sooner evaluation. The patient and/or caregiver is able to state an understanding of these recommendations and is agreeable to the treatment plan. 1. Complication associated with nervous system implant 2. Recurrent cholesteatoma of postmastoidectomy cavity of right side 3. Mixed conductive and sensorineural hearing loss of right ear with restricted hearing of left ear 4. Sensorineural hearing loss, bilateral Return in about 6 months (around 06/26/2023). The patient and/or caregiver is to notify the office if no improvement or worsening of symptoms is noted prior to the scheduled follow-up for sooner evaluation. The patient and/or caregiver is able to state an understanding of these recommendations and is agreeable to the treatment plan. --Cipriano Galindo MD on 12/25/2022 at 1:27 PM An electronic signature was used to authenticate this note. * Shanita Wooten MA - 12/25/2022 12:58 PM EDT Review of Systems Constitutional: Negative. HENT: Positive for hearing loss and tinnitus. Respiratory: Negative. Cardiovascular: Negative. Gastrointestinal: Negative. Endocrine: Negative. Genitourinary: Negative. Musculoskeletal: Negative. Skin: Negative. Allergic/Immunologic: Negative. Neurological: Negative. Hematological: Negative. Psychiatric/Behavioral: Negative. documented in this [id number] History of Present illness Narrative* Cipriano Galindo MD - 06/28/2022 1:12 PM EST [facility] [address] [facility] [address] [facility] [facility] [address] Dept: [phone] Loc: [phone] MD Scott Kirkmiigor Ware 62 y.o. female Patient presents with a chief complaint of Follow-up (6 month follow up ) BP (!) 149/91 Pulse 82 Ht 5' 4 Wt 68.9 kg (152 lb) LMP (LMP Unknown) SpO2 98% BMI 26.09 kg/m History of Presenting Illness: The patient/caregiver reports a history of complaint with the following features: Onset: ongoing hearing loss Quality: no ear pain, pressure, itching or drainage Location: right ear Severity: pain none Risk factors: history of right mastoidectomy Alleviating factors: ear cleanings Aggravating factors: nothing makes it worse Associated factors: no vertigo She reports that she does not use her PONTO device much as it did not give much improved speech understanding. Review of systems covering 10 systems is reviewed and pertinent positives and negatives are noted as above. History reviewed. No pertinent past medical history. Current Outpatient Medications: calcium-vitamin D (OS-SIGRID +D) 500 mg-5 mcg (200 unit) per tablet, Take 1 (one) tablet by mouth ., Disp: , Rfl: cholecalciferol, vitamin D3, 1,000 unit tablet, Take 5 (five) tablets (5,000 Units total) by mouth daily ., Disp: , Rfl: FLUoxetine (PROZAC) 20 MG capsule, Take 2 (two) capsules (40 mg total) by mouth daily ., Disp: , Rfl: metoprolol tartrate (LOPRESSOR) 50 MG tablet, Take 1 (one) tablet (50 mg total) by mouth 2 (two) times a day ., Disp: , Rfl: omeprazole (PRILOSEC) 20 MG capsule, Take 1 (one) capsule (20 mg total) by mouth ., Disp: , Rfl: rosuvastatin (CRESTOR) 5 MG tablet, Take 1 (one) tablet (5 mg total) by mouth ., Disp: , Rfl: Not on File History reviewed. No pertinent surgical history. Social History Socioeconomic History Marital status: Tobacco Use Smoking status: Former Types: Cigarettes Smokeless tobacco: Never Substance and Sexual Activity Alcohol use: Never Drug use: Never History reviewed. No pertinent family history. PHYSICAL EXAM: The patient was examined today 06/28/2022 with findings as follows: CONSTITUTIONAL: General Appearance: well-appearing, nontoxic, alert, no acute distress Communication: reduced understanding at normal conversational tones, normal voicing, speech intelligible, hearing with hearing aids HEAD/FACE: Head: atraumatic, normocephalic, no lesions, PONTO abutment right scalp Facial Inspection: no lesions, healthy skin Facial Strength: motor strength normal, symmetric strength, symmetric movement Sinuses: no sinus tenderness Salivary Glands: no enlargements of parotid glands, no tenderness of parotid glands, no masses of parotid glands, clear salivary flow on palpation from Stensen's ducts, no duct stones of Stensen's duct, no enlargement of submandibular glands, no tenderness of submandibular glands, no masses of subma ndibular glands, clear salivary flow from Kensett's ducts, no stones of Tomasa's ducts Temporomandibular Joint: no crepitus with motion, no tenderness on palpation, no trismus, motion symmetric EYES: Pupils: PERRLA, extra-ocular movements intact, no nystagmus, sclera white, no redness of eyes, no watering of eyes EARS: Bilateral External Ears: no pits, no tags Right External Ear: normally formed, no lesions, no mastoid tenderness Left External Ear: normally formed, no lesions, no mastoid tenderness Right External Auditory Canal: mastoid cavity with superior dried debris Left External Auditory Canal: normal, healthy skin, no obstructing cerumen, no discharge Right Tympanic Membrane: loss of normal landmarks, translucent, retracted Left Tympanic Membrane: normal landmarks, translucent, mobile to pneumatic otoscopy, no perforation Hearing: intact to spoken voice, intact to finger rub NECK: Neck: no masses, trachea midline, normal range of motion, no cysts or pits, no tenderness to palpation Thyroid: normal thyroid, no enlargement, no tenderness, no nodules LYMPH NODES: Cervical: no palpable lymph node enlargement SKIN: General Appearance: no lesions, warm and dry, normal turgor, no bruising NEUROLOGICAL SYSTEM: Orientation: oriented to time, oriented to place, oriented to person Cranial Nerves: Cranial Nerves II-XII intact, normal facial movement PSYCHIATRIC: Mood and affect: normal mood, normal affect .DEBRIDEMENT OF MASTOID CAVITY ([id number]) PROCEDURE PERFORMED BY: Cipriano Galindo MD PROCEDURE DATE: 06/28/2022 With the patient and/or caregiver's consent, the patient is positioned in the exam chair and an otic speculum placed into the right ear canal. Under binocular microscopic visualization there is notedto be squamous debris within the mastoid cavity. This is removed with a micro ear pick and a # 5 suction as needed to reveal a healthy mastoid cavity. The tympanic membrane remnant is intact. Upon completion, no topical agent is applied.The patient tolerated the procedure well without injury or bleeding, and is instructed to avoid water exposure the ear. Assessment and Plan: She presents for routine mastoid cleaning and this is performed today. She continues with hearing aid use on the left, but has been historically intolerant on the right. She reports that she does notuse her PONTO much either due to distortion and if she continues to not use this the abutment may removed. 1. Mixed conductive and sensorineural hearing loss of right ear with restricted hearing of left ear 2. Sensorineural hearing loss, bilateral 3. Recurrent cholesteatoma of postmastoidectomy cavity of right side Return in about 6 months (around 12/27/2022). The patient and/or caregiver is to notify the office if no improvement or worsening of symptoms is noted prior to the scheduled follow-up for sooner evaluation. The patient and/or caregiver is able to state an understanding of these recommendations and is agreeable to the treatment plan. --Cipriano Galindo MD on 06/28/2022 at 1:43 PM An electronic signature was used to authenticate this note. * Eleonora Benavides MA - 06/28/2022 1:08 PM EST Review of Systems Constitutional: Negative. HENT: Positive for hearing loss and tinnitus. Eyes: Negative. Respiratory: Negative. Cardiovascular: Negative. Gastrointestinal: Negative. Endocrine: Negative. Genitourinary: Negative. Musculoskeletal: Negative. Skin: Negative. Neurological: Negative. Hematological: Negative. Psychiatric/Behavioral: Negative. documented in this encounterOhioHealthEvaluation note* Diagnosis Onset Date Resolution Status Breast cancer, right chronic Breast cancer, right chronic [id number] acute History of tobacco use acute [facility] Work Phone: Evaluation note* Diagnosis Onset Date Resolution Status Breast cancer, right chronic Breast cancer, right chronic [id number] acute History of tobacco use acute Encounter for education acut e Breast cancer, right chronic Osteopenia chronic Breast cancer, right chronic [facility] Work Phone: Evaluation note* Diagnosis Mixed conductive and sensorineural hearing loss of right ear with restricted hearing of left ear- Primary Sensorineural hearing loss, bilateral Recurrent cholesteatoma of postmastoidectomy cavity of right side [facility] Diagnosis Complication associated with nervous system implant- Primary Recurrent cholesteatoma of postmastoidectomy cavity of right side Mixed conductive and sensorineural hearing loss of right ear with restricted hearing of left ear Sensorineural hearing loss, bilateral [facility]* Diagnosis Onset Date Resolution Status Breast cancer, right chronic [id number] acute History of tobacco use acute [facility] Work Phone: Evaluation note* Diagnosis Referred otalgia of right ear- Primary Recurrent cholesteatoma of postmastoidectomy cavity of right side Arthralgia of right temporomandibular joint [facility]* Diagnosis Mixed conductive and sensorineural hearing loss of right ear with restricted hearing of left ear- Primary Recurrent cholesteatoma of postmastoidectomy cavity of right side [facility]* Diagnosis Sensorineural hearing loss, asymmetrical- Primary Mixed conductive and sensorineural hearing loss of right ear with restricted hearing of left ear [facility]* Diagnosis Mixed conductive and sensorineural hearing loss of right ear with restricted hearing of left ear- Primary Impaired auditory discrimination, bilateral Recurrent cholesteatoma of postmastoidectomy cavity of right side [facility] noteNo assessment information availableW[facility] Work Phone: Evaluation note* Diagnosis Onset Date Resolution Status Admit Date Encounter for screening for malignant neoplasm of lung acute Augus t 2024 12:40pm Breast cancer, right chronic Augu 2024 12:40pm Osteopenia chronic February 25 12:40pm Encounter for education acute A ugust 2024 12:45pm Breast cancer, right chronic Augu 2024 12:45pm Osteopenia chronic February 25 12:45pm [facility] Work Phone: Evaluation note* Diagnosis Sensorineural hearing loss, asymmetrical- Primary Recurrent cholesteatoma of postmastoidectomy cavity of right side [facility] Additional Instructions Continue eating and drinking normally. Use ibuprofen and Tylenol for any pain or headacheWUpper [facility] Center Work Phone: Reason for referral (narrative)No reason for referral information availableWUpper Valley Medical Center Work Phone: Relevx for visit Narrative* Evaluate and Treat (Routine) - Closed Specialty Diagnoses / Procedures Referred By Contac t Referred To Contact Audiology Diagnoses Mixed conductive and sensorineural hearing loss of right ear with restricted hearing of left ear Cipriano Galindo MD [address] [place] [address] [address] [place] [address] Phone: tel: fax: Suzanne Merida, [facility] [address] [address] Phone: tel: fax: Referral ID Status Reason Start Date Expiration Date Visits Re quested Visits Authorized [id number] Closed 10/06/2024 10/06/2025 1 1 [facility] Summary Purpose Family History No Family History Records Found Relationship Condition Age at Onset Recorded Date/T lucinda mother Diabetes mellitus Unknown Cardiac disease Unknown Hypertension Unknown High blood cholesterol Unknown brother Malignant neoplasm of colon Unknown Relationship Condition Age at Onset Recorded Date/T lucinda mother Diabetes mellitus Unknown Cardiac disease Unknown Hypertension Unknown High blood cholesterol Unknown brother Malignant neoplasm of colon Unknown sister Malignant neoplasm Unknown Advance Directives No Advanced Directives Records Found Advance Directive Response Recorded Date/ Time Advance Directives No August 12:18pm Living Will No September 13 12:18pm Power of Hand Booked Folder And Stitcher No September 13, 2021 12:18pm Advance Directive Response Recorded Date/ Time Advance Directives No August 12:18pm Living Will No April 15, 2022 11:17am Power of Hand Booked Folder And Stitcher No March 11:17am Advance Directive Response Recorded Date/ Time Living Will No April 15, 2022 11:17am Power of Hand Booked Folder And Stitcher No March 11:17am Living Will No September 13 12:18pm Power of Hand Booked Folder And Stitcher No September 13, 2021 12:18pm Advance Directives No August 12:18pm Advance Directive Response Recorded Date/ Time Advance Directives No August 12:18pm Advance Directive Response Recorded Date/ Time Living Will No September 13 12:18pm Do you have a Healthcare Power of Hand Booked Folder And Stitcher? No September 13, 2021 12:18pm Advance Directives No August 12:18pm Chief Complaint and Reason for Visit Chief Complaint 3 MO NO LABS SCREENING FOLLOWUP BREAST lung cancer screening TOBACCO USE Reason for Visit Breast cancer, right Breast cancer, right [id number] History of tobacco use Chief Complaint 3 MO NO LABS SCREENING FOLLOWUP BREAST lung cancer screening TOBACCO USE ONC/HEM 2 MO - LABS - PROLIA cough Reason for Visit Breast cancer, right Breast cancer, right [id number] History of tobacco use Encounter for education Breast cancer, right Osteopenia Breast cancer, right Chief Complaint 6 month f/u breast SCREENING Lung cancer screening Reason for Visit Breast cancer, right [id number] History of tobacco use Chief Complaint Admit Date 6 MO - LABS - ZOMETA September 09, 2024 9:08am ONC/HEM September 09, 2024 9:15am 1 YR F/U BREAST September 14, 2024 9:23am Asymptomatic menopausal state September 23, 2024 3:05pm Reason for Visit Admit Date Breast cancer, right September 09, 2024 9:08am Encounter for education September 09 025 9:15am Breast cancer, right September 09, 2024 9:15am Osteopenia September 09, 2024 9:15am Breast cancer, right September 14, 2024 9:23am Chief Complaint Admit Date 1 YR F/U BREAST September 14, 2024 9:23am Asymptomatic menopausal state September 23, 2024 3:05pm CALCIFICATION January 07, 2025 12:4 0pm Reason for Visit Admit Date Breast cancer, right September 14, 2024 9:23am Chief Complaint Admit Date CALCIFICATION January 07, 2025 12:4 0pm SCREENING February 15, 2025 9:03 am Chief Complaint Admit Date CALCIFICATION January 07, 2025 12:4 0pm SCREENING February 15, 2025 9:03 am 6 MO - LABS - ZOMETA February 25, 2025 12 :40pm ONC/HEM February 25, 2025 12: 45pm Reason for Visit Admit Date Encounter for screening for malignant ne oplasm of lung February 25, 2025 12:40pm Breast cancer, right February 25, 2025 12 :40pm Osteopenia February 25, 2025 12: 40pm Encounter for education February 25, 2025 12:45pm Breast cancer, right February 25, 2025 12 :45pm Osteopenia February 25, 2025 12: 45pm Chief Complaint Admit Date CALCIFICATION January 07, 2025 12:4 0pm SCREENING February 15, 2025 9:03 am 6 MO - LABS - ZOMETA February 25, 2025 12 :40pm ONC/HEM February 25, 2025 12: 45pm Personal history of nicotine dependence March 11, 2025 4:29pm Additional Source Comments INFORMATION SOURCE (unrecogn ized section and content) DATE CREATED AUTHOR 05/29/2020 [facility] DATE CREATED AUTHOR AUTHOR'S ORGANIZ ATION 08/13/2020 [facility] DATE CREATED AUTHOR AUTHOR'S ORGANIZ ATION 08/24/2020 [facility] DATE CREATED AUTHOR AUTHOR'S ORGANIZ ATION 05/21/2021 [facility] DATE CREATED AUTHOR AUTHOR'S ORGANIZ ATION 01/28/2025 [facility] DATE CREATED AUTHOR AUTHOR'S ORGANIZ ATION 04/24/2025 [facility] DATE CREATED AUTHOR AUTHOR'S ORGANIZ ATION 05/28/2025 [facility] Goals (unrecognized section and content) Goals may be documented in a n alternate sectionGoals may be documented in an alternate sectionGoals may be documented in an alternate sectionGoals may be documented in an alternate sectionGoals may be documented in an alternate sectionGoals may be documented in an alternate sectionGoals may be documented in an alternate sectionGoals may be documented in an alternate section Reason for Visit (unrecogniz ed section and content) Reason Comments Follow-up 6 month follow up Reason Comments Follow-up Possible removal of abutment on right scalp Reason Comments Follow-up 6 month follow up ma stoid debridement Reason Comments 6MO F/U MASTOID DEBRIDEMENT Reason Comments 6 month f/u ears/mastoid debriedment Reason Comments 6 mo fu Mastoid debridement Est pt Care Teams (unrecognized sec tion and content) Apprentice Architect Relationship Specialty Start Date End Date [place] PA-C [address] [place] [address] PCP - General Physician Enhanced Environmental Operator 06/28/22 Apprentice Architect Relationship Specialty Start Date End Date [place] PA-C [address] [place] [address] PCP - General Physician Enhanced Environmental Operator 06/28/22 Team Status: Active Member Role Status [facility] PA, PA-C Family Provider Active [facility] PA, PA-C Primary Care Provider Active Team Status: Inactive Member Role Status [facility] PA, PA-C Primary Care Provider Active Dr. Tacos Merino DO Attending Provider Active Team Status: Inactive Member Role Status [facility] PA, PA-C Primary Care Provider Active Lynsey Strong PLAYGROUND DIRECTOR, PLAYGROUND DIRECTOR-C Attending Provider Active Dr. Fortunato Zhu MD Referring Provider Active Team Status: Inactive Member Role Status [facility] PA, PA-C Primary Care Provider Active Dr. Fortunato Zhu MD Attending Provider, Referrin g Provider Active Apprentice Architect Relationship Specialty Start Date End Date Alejandra Godwin PA-C [address] [place] [address] PCP - General Physician Enhanced Environmental Operator 06/28/22 Apprentice Architect Relationship Specialty Start Date End Date Alejandra Godwin PA-C [address] [place] [address] PCP - General Physician Enhanced Environmental Operator 06/28/22 Apprentice Architect Relationship Specialty Start Date End Date Alejandra Godwin PA-C [address] [place] [address] [place] [address] PCP - General Physician Enhanced Environmental Operator 06/28/22 Team Status: Active Member Role Status Dates Alejandra Godwin PA, PA-C Primary Care Provider Active Team Status: Inactive Member Role Status Dates Alejandra Godwin PA, PA-C Primary Care Provider Active Start: September 09, 2024 End: September 09, 2024 Alejandrajulian Godwin PA, PA-C Referring Provider Active Start: September 09, 2024 End: September 09, 2024 Dr. Fortunato Zhu MD Attending Provider Active Start: September 09, 2024 End: September 09, 2024 Team Status: Active Member Role Status Dates Alejandra Godwin PA, PA-C Primary Care Provider Active Start: September 09, 2024 Dr. Fortunato Zhu MD Attending Provider Active Start: September 09, 2024 Dr. Gabriel Jansen MD Referring Provider Active Start: September 09, 2024 Team Status: Inactive Member Role Status Dates Alejandra Godwin PA, PA-C Primary Care Provider Active Start: September 14, 2024 End: September 14, 2024 Alejandrajulian Godwin PA, PA-C Referring Provider Active Start: September 14, 2024 End: September 14, 2024 Dr. Tacos Merino DO Attending Provider Active Start: September 14, 2024 End: September 14, 2024 Team Status: Inactive Member Role Status Dates Alejandra Godwin PA, PA-C Primary Care Provider Active Start: September 23, 2024 End: September 23, 2024 Dr. Fortunato Zhu MD Attending Provider Active Start: September 23, 2024 End: September 23, 2024 Dr. Fortunato Zhu MD Referring Provider Active Start: September 23, 2024 End: September 23, 2024 Team Status: Inactive Member Role Status Dates Alejandra Godwin PA, PA-C Primary Care Provider Active Start: January 07, 2025 End: January 07, 2025 Alejandrajulian Godwin PA, PA-C Attending Provider Active Start: January 07, 2025 End: January 07, 2025 Alejandrajulian Godwin PA, PA-C Referring Provider Active Start: January 07, 2025 End: January 07, 2025 Team Status: Active Member Role/Relationship Status Dates Alejandra Godwin PA, PA-C Primary Care Provider Active Team Status: Inactive Member Role/Relationship Status Dates Alejandra Godwin PA, PA-C Primary Care Provider Active Start: January 07, 2025 End: January 07, 2025 Alejandra Godwin PA, PA-C Attending Provider Active Start: January 07, 2025 End: January 07, 2025 Alejandra Godwin PA, PA-C Referring Provider Active Start: January 07, 2025 End: January 07, 2025 Team Status: Inactive Member Role/Relationship Status Dates Alejandra Godwin PA, PA-C Primary Care Provider Active Start: February 15, 2025 End: February 15, 2025 Dr. Fortunato Zhu MD Attending Provider Active Start: February 15, 2025 End: February 15, 2025 Dr. Fortunato Zhu MD Referring Provider Active Start: February 15, 2025 End: February 15, 2025 Team Status: Inactive Member Role/Relationship Status Dates Alejandra Godwin PA, PA-C Primary Care Provider Active Start: February 25, 2025 End: February 25, 2025 Alejandra Godwin PA, PA-C Referring Provider Active Start: February 25, 2025 End: February 25, 2025 Lynsey Strong PLAYGROUND DIRECTOR, PLAYGROUND DIRECTOR-C Attending Provider Active Start: February 25, 2025 End: February 25, 2025 Team Status: Active Member Role/Relationship Status Dates Alejandra Godwin PA, PA-C Primary Care Provider Active Start: February 25, 2025 Dr. Fortunato Zhu MD Attending Provider Active Start: February 25, 2025 Dr. Gabriel Jansen MD Referring Provider Active Start: February 25, 2025 Team Status: Inactive Member Role/Relationship Status Dates Alejandra Godwin PA, PA-C Primary Care Provider Active Start: March 11, 2025 End: March 11, 2025 Lynsey Strong PLAYGROUND DIRECTOR, PLAYGROUND DIRECTOR-C Attending Provider Active Start: March 11, 2025 End: March 11, 2025 Lynseyash Strong PLAYGROUND DIRECTOR, PLAYGROUND DIRECTOR-C Referring Provider Active Start: March 11, 2025 End: March 11, 2025 Apprentice Architect Relationship Specialty Start Date End Date TatoAnna Mariely, PA-C [address] [place] [address] [place] [address] PCP - General Physician Enhanced Environmental Operator 06/28/22 FOR RECORDS PERTAINING TO PATIENTS WHO ARE OR HAVE BEEN ENROLLED IN A CHEMICAL DEPENDENCY/SUBSTANCEABUSE PROGRAM, SOME INFORMATION MAY BE OMITTED. This clinical summary was aggregated from multiple sources. Caution should be exercised in using it in the provision of clinical care. This summary normalizes information from multiple sources, and as a consequence, information in this document may materially change the coding, format and clinical context of patient data. In addition, data may be omitted in some cases. CLINICAL DECISIONS SHOULD BE BASED ON THE PRIMARY CLINICAL RECORDS. [facility]. provides no warranty or guarantee of the accuracy or completeness of information in this document.
--- NOTE | 2025-06-11 07:11 | PCM.PRE.AN2 ---
ASA Classification* ASA Classification ASA Classification: 2 Assessment & Plan Anesthesia* Anesthesia Assessment Anesthesia Assessment: Discussed sedation and/or anesthesia options, risks, benefits, and alternatives with patient/parents/legal guardian/POA. Questions invited. The patient/parents/legal guardian/POA seems to understand and agrees to proceed with anesthesia plan. Reviewed the physical assessment, medical history, allergy history and patient home medications list prior to surgery/procedure/anesthetic and documented any changes. Performed airway and anesthesia risk assessments. Anesthesia Type Anesthesia Type: MAC Anesthesia Focused Assessment* Airway Assessment Mouth opens: >3 cm Mallampati Score: II Labs Anesthesia Preop lab: CBC WBC, (4.4-11.0) 6.6 K/mm3 02/25/25, 12:58 RBC, (4.2-5.4) 4.47 M/mm3 02/25/25, 12:58 Hgb, (12.0-15.0) 13.5 g/dL 02/25/25, 12:58 Hct, (37-47) 41.2 % 02/25/25, 12:58 Plt Count, (150-450) 437 K/mm3 02/25/25, 12:58 CHEMISTRY Potassium, (3.3-5.1) 4.2 mmol/L 02/25/25, 12:58 Sodium, (133-145) 138 mmol/L 02/25/25, 12:58 BUN, (4-19) 18 mg/dL 02/25/25, 12:58 Creatinine, (0.70-1.20) 0.86 mg/dL 02/25/25, 12:58 Glucose, (70-99) 91 mg/dL 02/25/25, 12:58 COAG Pre-Assessment Diagnosis/Proposed Procedure Planned Operative Procedure(s): colonoscopy Anesthesia History Anesthesia History - personnel research psychologist: Anesthesia History - personnel research psychologist Hx Hospitalization No 06/09/25 15:06 Any Problems With Anesthesia No 06/09/25 15:06 Cholinesterase deficiency No 06/09/25 15:06 You/Your Family Experience No 06/09/25 15:06 fever (hyperthermia) with Relationship Recent Exposure to Contagious No 06/28/20 07:36 Disease Does patient have nerve No 06/09/25 15:06 stimulator Patient instructed to have device shut off --Does patient have Pacemaker or ICD? When Was Last Pacemaker Check QUESTION #4 FULL TEXT: You/Your Family Experience fever (hyperthermia) with Anesthesia Last Oral Intake Last Oral intake: Last Oral Intake NPO since Meds taken in AM with sips of water? Meds patient instructed to take am of surgery PONV PONV - personnel research psychologist: PONV - personnel research psychologist Female Yes 06/09/25 15:06 HX of Motion Sickness No 06/09/25 15:06 HX of N/V After Surgery No 06/09/25 15:06 Non-Smoker Yes 06/09/25 15:06 Duration of Surgery greater No 06/09/25 15:06 than 60 minutes Number of Risk Factors 2 06/09/25 15:06 PONV Score Moderate Risk 06/09/25 15:06 Height & Weight Height & Weight: Anesthesia: Height & Weight Height 5 ft 4 in 02/25/25 13:22 Respiratory Assessment Respiratory Assessment - personnel research psychologist: Respiratory Tract Infection Hx - personnel research psychologist Hx Respiratory Tract Infection No 06/09/25 15:06 STOP Sleep Apnea STOP Sleep Apnea - personnel research psychologist: STOP Sleep Apnea - personnel research psychologist Hx Hypertension Yes: PER PT, CONTROLLED ON 06/09/25 15:06 MEDS Hx Sleep Apnea No 06/09/25 15:06 CPAP No 02/18/20 13:19 BIPAP Do you snore loudly (louder No 06/09/25 15:06 than talking or can be heard Do you often feel tired/ No 06/09/25 15:06 fatigued/ sleepy during daytime? Has anyone observed you stop No 06/09/25 15:06 breathing during sleep? STOP Results Negative 06/09/25 15:06 QUESTION #5 FULL TEXT : Do you snore loudly (louder than talking or can be heard through closed doors)? 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 Specify any problems Hx of Preganancy in last 3 No 06/09/25 15:06 Months Nurse Filling Out Transfusion MGRIFFITH 06/09/25 15:06 & Questions: Date: 06/09/25 06/09/25 15:06 Time: 15:08 06/09/25 15:06 Patient unable to answer at this time (ie. confused, unrespo /Reproduction History /Reproductive History - personnel research psychologist: /Reproductive Hx- personnel research psychologist Hx Now No 06/09/25 15:06 Gestational Age (in weeks): EDC: Hx Hx Para Hx Section SAB No 06/09/25 15:06 Does the father of the baby or his family experience fever w Father of the baby Malignant Hypertension history comment Active Medications Active Medications: Current Medications Generic Name Dose Route Start Last Admin Trade Name Freq PRN Reason Stop Dose Admin Lactated Ringer's 1,000 mls @ 15 mls/hr 06/11/25 07:15 IV .Q48H TERRI PFSH Medical History Loss of hearing Wears hearing aid Wears glasses Wears dentures High cholesterol Former smoker Encounter for screening for malignant neoplasm of lung Cataract BCC (basal cell carcinoma), leg Pain of left scapula Encounter for screening for malignant neoplasm of lung in current smoker with 30 pack year history or greater History of tobacco use Malignant neoplasm of lower-outer quadrant of right female breast Acid reflux Anxiety Hypertension Abnormal ultrasound of breast Abnormal mammogram of right breast Other abnormal auditory perceptions, unspecified ear 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 Home Medications ?Medication ?Instructions ?Recorded ?Last Taken ?Type cholecalciferol (vitamin D3) 125 5,000 unit PO DAILY 12/03/18 Unknown History mcg (5,000 unit) capsule metoprolol succinate 50 mg 50 mg PO DAILY 12/03/18 02/18/20 07:00 History tablet,extended release 24 hr valsartan 80 mg tablet 80 mg PO DAILY 12/03/18 02/18/20 07:00 History ibuprofen 200 mg tablet 200 mg PO Q6H PRN PRN Mod-Severe 12/05/18 Unknown Rx Pain (4-04/30) omeprazole 20 mg capsule,delayed 20 mg PO DAILY 02/03/20 02/18/20 07:00 History release calcium carbonate 1,250 mg PO DAILY 02/17/20 Unknown History rosuvastatin 5 mg tablet 5 mg PO QODAY 09/14/20 Unknown History fluoxetine 20 mg capsule 40 mg PO DAILY 12/07/20 Unknown History anastrozole 1 mg tablet 1 mg PO DAILY #90 TABLETS 10/13/24 Unknown Rx zoledronic acid 4 mg/5 mL mg IV .Q6MOS 06/09/25 Unknown History intravenous solution Allergy/AdvReac Type Severity Reaction Status Date / Time No Known Allergies Allergy Verified 06/09/25 15:01 Family History Mother Diabetes Heart disease Hypertension High cholesterol Brother Colon cancer High cholesterol Hypertension Sister Cancer MELANOMA Surgical History S/P Mohs surgery for basal cell carcinoma H/O bilateral salpingo-oophorectomy History of lumpectomy Hx of breast biopsy Hx of mastoidectomy Hx of hysterectomy Social History Smoking Status: Former smoker quit date: 09/19/17 pack-years: 40 Tobacco: How many years used: 40 how long ago did patient quit smokin years second hand exposure: No quit status: quit date established alcohol intake: never substance use type: does not use caffeine: Yes Type: coffee what type of physical activity do you participate in: walking frequency: daily Review of Systems (Anesthesia) ROS Narrative System reviewed and no additional complaints, except as documented.
[2025-06-11] MEDS: Lactated Ringers 1,000 ML 15 ML IV (07:29)
--- NOTE | 2025-06-11 07:50 | H&P.OPEN ---
HPI - General HPI Narrative DAV TOWNSEND, is a 65 F who presents for surveillance colonoscopy. Patient's last colonoscopy was 5 years ago and 2 polyps were removed. She denies abdominal pain or blood in the stool. [facility] History Loss of hearing Wears hearing aid Wears glasses Wears dentures High cholesterol Former smoker Encounter for screening for malignant neoplasm of lung Cataract BCC (basal cell carcinoma), leg Pain of left scapula Encounter for screening for malignant neoplasm of lung in current smoker with 30 pack year history or greater History of tobacco use Malignant neoplasm of lower-outer quadrant of right female breast Acid reflux Anxiety Hypertension Abnormal ultrasound of breast Abnormal mammogram of right breast Other abnormal auditory perceptions, unspecified ear 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 Home Medications ?Medication ?Instructions ?Recorded ?Last Taken ?Type cholecalciferol (vitamin D3) 125 5,000 unit PO DAILY 12/03/18 Unknown History mcg (5,000 unit) capsule metoprolol succinate 50 mg 50 mg PO DAILY 12/03/18 06/11/25 History tablet,extended release 24 hr valsartan 80 mg tablet 80 mg PO DAILY 12/03/18 06/11/25 History ibuprofen 200 mg tablet 200 mg PO Q6H PRN PRN Mod-Severe 12/05/18 Unknown Rx Pain (4-04/30) omeprazole 20 mg capsule,delayed 20 mg PO DAILY 02/03/20 06/11/25 History release calcium carbonate 1,250 mg PO DAILY 02/17/20 Unknown History rosuvastatin 5 mg tablet 5 mg PO QODAY 09/14/20 Unknown History fluoxetine 20 mg capsule 40 mg PO DAILY 12/07/20 Unknown History anastrozole 1 mg tablet 1 mg PO DAILY #90 TABLETS 10/13/24 Unknown Rx zoledronic acid 4 mg/5 mL mg IV .Q6MOS 06/09/25 Unknown History intravenous solution Allergy/AdvReac Type Severity Reaction Status Date / Time No Known Allergies Allergy Verified 06/11/25 07:12 Family History Mother Diabetes Heart disease Hypertension High cholesterol Brother Colon cancer High cholesterol Hypertension Sister Cancer MELANOMA Surgical History S/P Mohs surgery for basal cell carcinoma H/O bilateral salpingo-oophorectomy History of lumpectomy Hx of breast biopsy Hx of mastoidectomy Hx of hysterectomy Social History Smoking Status: Former smoker quit date: 09/19/17 pack-years: 40 Tobacco: How many years used: 40 how long ago did patient quit smokin years second hand exposure: No quit status: quit date established alcohol intake: never substance use type: does not use caffeine: Yes Type: coffee what type of physical activity do you participate in: walking frequency: daily Past Medical/Surgical History Planned Operation Planned Operative Procedure(s): colonoscopy S.O.S: No Previous Hospitalizations/Surgeries HX Hospitalizations: No HX of Surgeries: lumpectomy 2019, hyeterectomy 2003, ear surgery Any Problems With Anesthesia: No You/Your Family Experience Fever (Hyperthermia) With Anes: No Cholinesterase deficiency: No Cardiovascular Hx Chest Pain within Last 2 months: No Hx of Irregular Heartbeat and/or Afib: No Hx Heart Attack: No Hx Congestive Heart Failure: No Hx Rheumatic Fever: No Hx Hypertension: Yes (PER PT, CONTROLLED ON MEDS) Hx Internal Defibrillator: No Hx Pacemaker: No Hx Cardiac Catheterization: No Hx Cardiac Surgery/Stents/Etc.: No Hx Stress Test: Yes (at [place] 2018) Hx Pain in Legs when Walking/Leg Cramps: No Respiratory Chronic Cough: No HX of Shortness of Breath: No Hoarseness: No Hx Chronic Obstructive Pulmonary Disease (COPD): No Hx Asthma: No Hx Emphysema: No Hx Sleep Apnea: No CPAP: No Hx Respiratory Tract Infection/Cold (presently): No Do You Snore Loudly (louder than talking or can be heard): No Do You Often Feel Tired/ Fatigued/ Sleepy Dring Daytime?: No Has Anyone Observed You Stop Breathing During Sleep?: No Result (for STOP score): Negative Hx Smoking: Yes Smoking Status: Former smoker Gastrointestinal Controlled With Meds: Yes Hx Gastrointestinal Disorders: No Hx Gastrointestinal Bleed: No Hx Ulcer: No Hx Hiatal Hernia: No Difficulty Chewing/Swallowing: No Special diet followed at home: No Hx Unplanned Weight Loss of 20#: No HX Unplanned Weight Gain of 20#: No Neurological Hx Seizures: No HX Syncope/Blackout Spells/Unconsciousness: No Hx Transient Ischemic Attacks (TIA): No Hx Multiple Sclerosis: No Hx Parkinson's Disease: No Hx Head/Neck Injury: No Hx Headaches: No Hx Back Injury/Pain: No Recent Onset of Speech Difficulty: No Restless Legs: No Does patient have nerve stimulator: No Blood Disorder Hx Leukemia: No Bleeding Tendencies: No Hx Deep Vein Thrombosis: No Hx High Cholesterol: No Blood Transmitted Disease: No Hx Hepatitis: No Hx Cirrhosis: No Hx Anemia: No Hx Blood Disorders: No Reproduction : No Is Patient Lactating: No Hx Hysterectomy: Yes Hx Tubal Ligation: No Are You Post Menopause: Yes Genitourinary Hx Renal Disease: No Musculoskeletal Hx Arthritis: No Hx Rheumatoid Arthritis: No Hx Gout: No Recent Onset of an Orthopedic Problem: No Endocrine Hx Diabetes: No Thyroid Disease: No Hx Steroid Therapy: No Psycho/Social Hx Substance Use: No Hx Alcohol Use: No Hx Anxiety: Yes (on meds) Hx Depression: No Mental Illness: No Hx Dementia: No Miscellaneous Hx Cancer: Yes (breast, skin) Recent Exposure to Contagious Disease: No Hx of C-Diff: No Any Loose Teeth: Yes (upper dentures) Allergies No Known Allergies Allergy (Verified 06/11/25 07:12) Discharge Is Pt Admitted From a Senior Living, or a Halfway: No Who Could Help: FAMILY After D/C, Where Do you Plan to Go: Return Home From the [facility] History Number of Risk Factors: 2 Vital Signs Vital Signs Vital Signs: 06/11/25 07:13 06/11/25 07:13 Temperature 98.2 F Temperature Source Temporal Pulse Rate 69 Respiratory Rate 18 Respiratory Pattern Normal Blood Pressure 134/91 H Blood Pressure Mean 105 Blood Pressure Source Monitor Blood Pressure Position Semi-Fowlers Blood Pressure Location Left Arm Pulse Ox 97 Oxygen Delivery Method Room Air Weight Weight: 152 lb 5.431 oz Body Mass Index (BMI) 26.1 Physical Exam Const alert and oriented x3 HEENT normocephalic Eyes PERRL Resp normal respiratory effort and normal air movement Cardio regular rate and regular rhythm GI soft to palpation, non-tender and non-distended Extremity normal to inspection Assessment & Plan Assessment/Plan (1) History of colon polyps: PLAN: I explained endoscopy in detail to the patient. I explained the risks including but not limited to stroke or heart attack with anesthesia, perforation of the GI tract, bleeding, infection. I explained that any of these could necessitate further emergency surgery. The patient understands and all questions were answered sufficiently. The patient wishes to proceed with procedure. Gabriel Jansen MD Pager: [facility] [address] [place] [address] [address] [place] [address] Office: Surgery Risks - Colonoscopy Risks Include but are not Limited To: Risks include but are not limited to: Bleeding, perforation requiring further surgery, inability to complete colonoscopy requiring barium enema.
--- NOTE | 2025-06-11 08:18 | PCM.POST.ANE ---
Anesthesia: Postop Eval I Current Vital Signs Temperature: 97 F Pulse Rate: 60 Blood Pressure: 90/61 Respiratory Rate: 16 Pulse Ox: 99 Oxygen Delivery Method: Room Air Assessment Airway patent: Yes Spontaneous unlabored respirations: Yes Mental status: Awake and Calm nausea: No Vomiting: No Anesthesia Complication: No Fluid Hydration Crystalloid volume administer (ml): 300 Total IV fluid infused: 300 Progress Note Anesthesia document: Postop Eval 1 completed: Yes
--- NOTE | 2025-06-11 08:19 | OP.COLON_ITS ---
Patient Name: Daisha Ware Procedure Date: 06/11/2025 7:53 AM Date of : 1960 Age: 65 Procedure: Colonoscopy Indications: High risk colon cancer surveillance: Personal history of colonic polyps Providers: Gabriel Jansen MD Referring MD: Gabriel Jansen MD Medicines: Propofol per Anesthesia Patient Profile: This is a 65 year old female. Refer to note in patient chart for documentation of history and physical. Last Colonoscopy: 5 years ago. Complications: No immediate complications. Procedure: Pre-Anesthesia Assessment: - Prior to the procedure, a History and Physical was performed, and patient medications and allergies were reviewed. The patient's tolerance of previous anesthesia was also reviewed. The risks and benefits of the procedure and the sedation options and risks were discussed with the patient. All questions were answered, and informed consent was obtained. Prior Anticoagulants: The patient has taken no anticoagulant or antiplatelet agents. After reviewing the risks and benefits, the patient was deemed in satisfactory condition to undergo the procedure. After I obtained informed consent, the scope was passed under direct vision. Throughout the procedure, the patient's blood pressure, pulse, and oxygen saturations were monitored continuously. The pediatric colonoscope was introduced through the anus and advanced to the cecum, identified by appendiceal orifice and ileocecal valve. The colonoscopy was performed without difficulty. The patient tolerated the procedure well. The quality of the bowel preparation was good. The ileocecal valve, appendiceal orifice, and rectum were photographed. Scope In: 8:02:34 AM Scope Withdrawal Time 0 hours 6 minutes 17 seconds Scope Out: 8:16:01 AM Total Procedure Duration Time 0 hours 13 minutes 27 seconds Findings: The entire examined colon appeared normal on direct and retroflexion views. Impression: - The entire examined colon is normal on direct and retroflexion views. - No specimens collected. Recommendation: - Discharge patient to home. - Resume previous diet. - Continue present medications. - Repeat colonoscopy is not recommended due to current age (66 years or older) for screening purposes. Procedure Code(s): --- Professional --- 94045, Colonoscopy, flexible; diagnostic, including collection of specimen(s) by brushing or washing, when performed (separate procedure) Diagnosis Code(s): --- Professional --- Z86.010, Personal history of colonic polyps CPT copyright 2021 [employer]. All rights reserved. The codes documented in this report are preliminary and upon national coverage specialist review may be revised to meet current compliance requirements. Gabriel Jansen MD 06/11/2025 8:18:53 AM This report has been signed electronically. Number of Addenda: 0 Note Initiated On: 06/11/2025 7:53 AM
--- NOTE | 2025-06-11 08:19 | OP.PROVAT_ITS ---
06/11/2025 Alejandra Godwin Re : Colonoscopy procedure for Daisha Godwin This procedure was performed on Wednesday, June 11, 2025. My impressions and recommendations are as follows: Impressions : - The entire examined colon is normal on direct and retroflexion views. - No specimens collected. Recommendations : - Discharge patient to home. - Resume previous diet. - Continue present medications. - Repeat colonoscopy is not recommended due to current age (66 years or older) for screening purposes. My findings are described in the full procedure note, which is enclosed. If I can be of further assistance, please feel free to contact me at Doctor phone number(s): , Work: . Sincerely, Gabriel Jansen MD 06/11/2025 8:18:53 AM This report has been signed electronically.
--- NOTE | 2025-06-11 12:15 | POSTOPAN2_ITS ---
Anesthesia Postop Eval I Sum Postop Eval Completion status Anesthesia document: Postop Eval 1 completed: Yes Anesthesia Postop Eval I Summary Anesthesia Postop Eval I Summary: Anesthesia Postop Eval I: Assessment Summary Airway patent Yes 06/11/25 08:18 SPOOLER OPERATOR.MDOT Spontaneous unlabored Yes 06/11/25 08:18 SPOOLER OPERATOR.OT respirations Mental status Awake,Calm 06/11/25 08:18 SPOOLER OPERATOR.MDOT nausea No 06/11/25 08:18 SPOOLER OPERATOR.MDOT Vomiting No 06/11/25 08:18 SPOOLER OPERATOR.MDOT Anesthesia Postop Eval I: Fluid Summary Crystalloid volume administer 300 06/11/25 08:18 SPOOLER OPERATOR.MDOT (ml) Colloids volume administered ( ml) Blood Product volume administered (ml) Total IV fluid infused 300 06/11/25 08:18 SPOOLER OPERATOR.OT Anesthesia Postop Eval I: Summary Notes Anesthesia Complication No 06/11/25 08:18 SPOOLER OPERATOR.MDOT Anesthesia Complication Comment: Post-operative progress note Anesthesia: Postop Eval II Evaluation Mental status: Awake Pain Level: 0 nausea: No Vomiting: No
--- NOTE | 2025-06-11 12:15 | PCM.POSTANE2 ---
Anesthesia Postop Eval I Sum Postop Eval Completion status Anesthesia document: Postop Eval 1 completed: Yes Anesthesia Postop Eval I Summary Anesthesia Postop Eval I Summary: Anesthesia Postop Eval I: Assessment Summary Airway patent Yes 06/11/25 08:18 GLASS [email or web address] Spontaneous unlabored Yes 06/11/25 08:18 GLASS BREAKER.OT respirations Mental status Awake,Calm 06/11/25 08:18 GLASS BREAKER.MDOT nausea No 06/11/25 08:18 GLASS BREAKER.MDOT Vomiting No 06/11/25 08:18 GLASS BREAKER.MDOT Anesthesia Postop Eval I: Fluid Summary Crystalloid volume administer 300 06/11/25 08:18 GLASS BREAKER.MDOT (ml) Colloids volume administered ( ml) Blood Product volume administered (ml) Total IV fluid infused 300 06/11/25 08:18 GLASS BREAKER.OT Anesthesia Postop Eval I: Summary Notes Anesthesia Complication No 06/11/25 08:18 GLASS BREAKER.MDOT Anesthesia Complication Comment: Post-operative progress note Anesthesia: Postop Eval II Evaluation Mental status: Awake Pain Level: 0 nausea: No Vomiting: No
== END 2025-06-11 09:30 | disposition home or self-care (01) ==
LOC: EN 06:58 → AC 07:00
PROVIDERS: PCP Family Medicine; Referring Provider Surgery; Visit Provider Surgery
PROC: 0DJD8ZZ Inspection of Lower Intestinal Tract, Via Natural or Artificial Opening Endoscopic (ICD-10-PCS; CPT 45378; principal; 2025-06-11 07:55)
DX: Z12.11 Encounter for screening for malignant neoplasm of colon (principal); K21.9 Gastro-esophageal reflux disease without esophagitis; Z86.0100 Personal history of colon polyps, unspecified; I10 Essential (primary) hypertension; E78.00 Pure hypercholesterolemia, unspecified; Z87.891 Personal history of nicotine dependence; Z79.899 Other long term (current) drug therapy
CPT/HCPCS: G0105